=== PATIENT | female | born 1955 | race Caucasian/White ===

== ENCOUNTER → 2018-05-06 11:04 | Outpatient (CLI) | payer OTHER, SELFPAY ==
--- NOTE | 2018-05-06 11:05 | DI.MG.S_ITS ---
BILATERAL DIGITAL SCREENING MAMMOGRAM 3D/2D WITH CAD: 05/06/2018 CLINICAL: Routine screening. Comparison is made to exams dated: 12/23/2015 mammogram, 05/03/2014 mammogram, and 03/03/2013 mammogram - [facility]. There are scattered fibroglandular elements in both breasts. Current study was also evaluated with a Computer Aided Detection (CAD) system. No significant masses, calcifications, or other findings are seen in either breast. There has been no significant interval change. IMPRESSION: NEGATIVE There is no mammographic evidence of malignancy. A 1 year screening mammogram is recommended. This exam was interpreted at Station ID: [id number]. NOTE: For mammograms, a report in lay terms will be sent to the patient. Approximately 15% of breast malignancies will not be visualized mammographically. In the management of a palpable breast mass, a negative mammogram must not discourage biopsy of a clinically suspicious lesion. Electronically Signed By: Gregg ortiz/penmelo:05/08/2018 22:15:22 letter sent: Normal Exam ACR BI-RADS Category 1: Negative 3341F
== END ==
PROVIDERS: Family Provider Physician Assistant; PCP Physician Assistant; Visit Provider Physician Assistant
DX: Z12.31 Encounter for screening mammogram for malignant neoplasm of breast (principal)
CPT/HCPCS: 77063; 77067

== ENCOUNTER → 2018-08-16 15:38 | Outpatient (CLI) | payer OTHER, SELFPAY ==
--- NOTE | 2018-08-16 15:39 | DI.RAD.S_ITS ---
PROCEDURE: XR ELBOW LT MIN 3V INDICATIONS: Left elbow pain;hx of injury 10 years ago TECHNIQUE: 3 views of the elbow were acquired. COMPARISON: None. FINDINGS: Bones: No fractures or dislocations. No suspicious bony lesions. Soft tissues: No elbow joint effusion. No suspicious soft tissue calcifications. IMPRESSION: Unremarkable examination. If the patient's pain or other symptoms persist, consider further evaluation with MRI Dictated by: Cristopher Marin M.D. on 08/16/2018 at 17:06 Approved by: Cristopher Marin M.D. on 08/16/2018 at 17:08
== END ==
PROVIDERS: PCP Physician Assistant; Visit Provider Physician Assistant
DX: M25.522 Pain in left elbow (principal)
CPT/HCPCS: 73080

== ENCOUNTER → 2019-02-13 09:14 | Outpatient (CLI) | payer OTHER, SELFPAY ==
[2019-02-13 10:03] LABS: Add Manual Diff / Slide Review NO; Basophils Absolute Auto 0 /uL (0-100); Basophils Percent Auto 0.7 % (0-2); Eosinophils Absolute Auto 100 /uL (0-450); Eosinophils Percent Auto 1.7 % (2-4); Hematocrit 42.3 % (36-46); Hemoglobin 14.6 g/dL (12.0-16.0); Lymphocytes Absolute Auto 1000 /uL (1100-4500); Lymphocytes Percent Auto 20.8 % (25-40); Mean Corpuscular HGB Conc 34.5 % (30-36); Mean Corpuscular Volume 92.9 fL (80-100); Monocytes Absolute Auto 400 /uL (0-900); Monocytes Percent Auto 7.6 % (3-14); Neutrophils Absolute Auto 3400 /uL (1500-7000); Neutrophils Percent Auto 69.2 % (50-75); Platelet Count 272 X10^3/uL (150-400); Red Blood Cell Count 4.55 X10^6/uL (4.0-5.2); Red Cell Distribution Width 12.8 % (11.6-14.8)
[2019-02-13 10:20] LABS: Alanine Aminotransferase 14 IU/L (9-52); Albumin 4.3 g/dL (3.5-5.0); Albumin Globulin Ratio 1.5 (1.0-2.8); Alkaline Phosphatase 101 U/L (38-126); Aspartate Aminotransferase 21 IU/L (14-36); BUN Creatinine Ratio 21.4 (6-22); Bilirubin Total 0.6 mg/dL (0.2-1.3); Blood Urea Nitrogen 15 mg/dL (7-17); Calcium 9.4 mg/dL (8.4-10.2); Carbon Dioxide 28 mmol/L (22-32); Chloride 105 mmol/L (98-107); Estimated Glomerular Filt Rate > 60.0 mL/min (>60); Globulin 2.8 g/dL (1.7-4.1); Glucose 87 mg/dL (80-110); HEMOLYSIS < 15 (0-50); Potassium 4.2 mmol/L (3.4-5.1); Sodium 140 mmol/L (137-145); Total Protein 7.1 g/dL (6.3-8.2)
[2019-02-13 10:49] LABS: Thyroid Stimulating Hormone 0.89 uIU/mL (0.47-4.68)
== END ==
PROVIDERS: PCP Physician Assistant; Visit Provider Physician Assistant
DX: G47.00 Insomnia, unspecified (principal); I10 Essential (primary) hypertension; R53.83 Other fatigue; Z87.891 Personal history of nicotine dependence
CPT/HCPCS: 36415; 80053; 84443; 85025

== ENCOUNTER → 2019-05-03 13:00 | Outpatient (CLI) | payer OTHER, SELFPAY ==
[2019-05-03 14:08] LABS: Free T3, Triiodothyronine Free 3.39 pg/mL (2.77-5.27); Free T4, Direct Thyroxine 0.73 ng/dL (0.78-2.19)
[2019-05-03 14:22] LABS: Thyroid Stimulating Hormone 1.23 uIU/mL (0.47-4.68)
[2019-05-06 17:21] LABS: Thyroid Peroxidase Antibodies 2 IU/mL (< 9)
== END ==
PROVIDERS: PCP Physician Assistant; Visit Provider Physician Assistant
DX: G47.00 Insomnia, unspecified (principal); R53.83 Other fatigue; Z86.39 Personal history of other endocrine, nutritional and metabolic disease
CPT/HCPCS: 36415; 84439; 84443; 84481; 86376

== ENCOUNTER → 2019-05-04 08:29 | Outpatient (CLI) | payer OTHER, SELFPAY ==
--- NOTE | 2019-05-04 08:30 | DI.US.S_ITS ---
PROCEDURE: US THYROID INDICATIONS: FATIGUE; INSOMNIA;HX OF THYROIDITIS TECHNIQUE: Real-time scanning was performed of the thyroid gland, with image documentation. COMPARISON: [facility], [place], THYROID, 08/17/2017, 9:11. FINDINGS: Right: Thyroid lobe measures 5.0 x 1.9 x 1.5 cm, and is homogeneous in echotexture. Left: Thyroid lobe measures 4.5 x 1.1 x 1.4 cm, and is homogenous in echotexture. Isthmus: 4.0 mm thick. Nodule number: 1 Location: Right inferior Size: Unchanged at 1.0 x 0.8 x 0.9 cm. Composition: Predominantly solid Echogenicity: Hypoechoic Shape: wider than tall. Margins: Smooth Echogenic foci: Internal punctate echogenic foci Total points: 7 ACR TI-RADS category: Highly suspicious Nodule number: 2 Location: Left inferior Size: Unchanged 0.5 x 0.3 x 0.4 cm. Composition: Cystic Echogenicity: Anechoic Shape: wider than tall. Margins: Smooth Echogenic foci: Comet tail artifact Total points: 0 ACR TI-RADS category: 9 IMPRESSION: Stable appearance of right thyroid nodule and left colloid cyst. Recommend continued followup ultrasound as detailed below. ACR TI-RADS definitions and recommendations: TI-RADS 1 (benign): 0 points. FNA not needed. TI-RADS 2 (not suspicious): 2 points. FNA not needed. TI-RADS 3 (mildly suspicious): 3 points. * FNA if 2.5 cm or larger, follow up if 1.5 cm or larger (at 1, 3, and 5 years). TI-RADS 4 (moderately suspicious): 4-6 points. * FNA if 1.5 cm or larger, follow up if 1 cm or larger (at 1, 2, 3, and 5 years). TI-RADS 5 (highly suspicious): 7 points or more. * FNA if 1 cm or larger, follow up if 0.5 cm or larger (every year for 5 years). Dictated by: on 05/04/2019 at 17:03 Approved by: Cristopher Marin M.D. on 05/04/2019 at 17:07
== END ==
PROVIDERS: PCP Physician Assistant; Visit Provider Physician Assistant
DX: R53.83 Other fatigue (principal); G47.00 Insomnia, unspecified; E04.2 Nontoxic multinodular goiter; Z86.39 Personal history of other endocrine, nutritional and metabolic disease
CPT/HCPCS: 76536

== ENCOUNTER → 2019-05-22 08:00 | Outpatient (CLI) | payer OTHER, SELFPAY ==
--- NOTE | 2019-05-22 08:01 | DI.MRI.S_ITS ---
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 Thin-slice sagittal and coronal T1 spin echo, coronal T2 fast spin echo through the pituitary. After the administration contrast, optional dynamic coronal T1 spin echo, thin-slice coronal and sagittal T1 spin echo images through the pituitary fossa; axial T1 spin echo with fat saturation through the brain. COMPARISON: None. FINDINGS: Image quality: Excellent. Pituitary Gland: Pituitary gland is normal size and contour. Pituitary gland demonstrates normal no areas of delayed postcontrast enhanced. Pituitary infundibulum is slightly deviated to the left. Pituitary infundibulum has normal thickness, contour and enhancement. No suprasellar mass is identified. The optic chiasm is normal. There are sinus demonstrates normal CSF Spaces: Ventricles are normal in size and shape. Basal cisterns are patent. No extra-axial fluid collections. Brain: No intracranial bleeds or mass effects. No abnormal intracranial enhancement. Paez-white matter interface is intact. Diffusion weighted images demonstrate no acute ischemic insults. Brainstem is normal. Normal intravascular flow voids are present. Skull and face: Calvarial marrow is normal in signal. Orbits appear normal. Sinuses: Sinuses and mastoids are clear. IMPRESSION: 1. Pituitary gland demonstrates normal size contour and enhancement. 2. No abnormal intracranial mass or mass effect. 3. No suspicious postcontrast enhancement. Dictated by: Edwina Pfeiffer MD, PhD on 05/22/2019 at 12:26 Approved by: Edwina Pfeiffer MD, PhD on 05/22/2019 at 12:37
== END ==
PROVIDERS: PCP Physician Assistant; Visit Provider Physician Assistant
DX: E03.8 Other specified hypothyroidism (principal)
CPT/HCPCS: 70553

== ENCOUNTER → 2019-08-07 11:03 | Outpatient (CLI) | payer OTHER, SELFPAY ==
[2019-08-07 13:04] LABS: Free T4, Direct Thyroxine 1.02 ng/dL (0.78-2.19)
[2019-08-07 13:18] LABS: Thyroid Stimulating Hormone 0.53 uIU/mL (0.47-4.68)
== END ==
PROVIDERS: PCP Physician Assistant; Visit Provider Physician Assistant
DX: E03.8 Other specified hypothyroidism (principal)
CPT/HCPCS: 36415; 84439; 84443

== ENCOUNTER → 2020-04-12 07:56 | Outpatient (CLI) | payer OTHER, SELFPAY ==
[2020-04-12 09:32] LABS: Add Manual Diff / Slide Review NO; Basophils Absolute Auto 100 /uL (0-100); Basophils Percent Auto 1.4 % (0-2); Eosinophils Absolute Auto 100 /uL (0-450); Eosinophils Percent Auto 3.6 % (2-4); Hematocrit 41.8 % (36-46); Hemoglobin 14.6 g/dL (12.0-16.0); Lymphocytes Absolute Auto 1200 /uL (1100-4500); Lymphocytes Percent Auto 28.4 % (25-40); Mean Corpuscular HGB Conc 34.9 % (30-36); Mean Corpuscular Hemoglobin 31.5 PG (26-34); Mean Corpuscular Volume 90.4 fL (80-100); Monocytes Absolute Auto 300 /uL (0-900); Monocytes Percent Auto 7.2 % (3-14); Neutrophils Absolute Auto 2400 /uL (1500-7000); Neutrophils Percent Auto 59.4 % (50-75); Platelet Count 272 X10^3/uL (150-400); Red Blood Cell Count 4.62 X10^6/uL (4.0-5.2); Red Cell Distribution Width 13.1 % (11.6-14.8); White Blood Cell Count 4.1 X10^3/uL (4.5-11.0)
[2020-04-12 10:17] LABS: Alanine Aminotransferase 19 IU/L (<35); Albumin 3.9 g/dL (3.5-5.0); Albumin Globulin Ratio 1.6 (1.0-2.8); Alkaline Phosphatase 124 U/L (38-126); Aspartate Aminotransferase 21 IU/L (14-36); BUN Creatinine Ratio 25.6 (6-22); Bilirubin Total 0.7 mg/dL (0.2-1.3); Blood Urea Nitrogen 20 mg/dL (7-17); Calcium 9.3 mg/dL (8.4-10.2); Carbon Dioxide 26 mmol/L (22-32); Chloride 104 mmol/L (98-107); Estimated Glomerular Filt Rate > 60.0 mL/min (>60); Globulin 2.5 g/dL (1.7-4.1); Glucose 94 mg/dL (80-110); HEMOLYSIS < 15 (0-50); Sodium 137 mmol/L (137-145); Total Protein 6.4 g/dL (6.3-8.2)
[2020-04-12 10:28] LABS: Free T4, Direct Thyroxine 1.27 ng/dL (0.78-2.19)
[2020-04-12 10:30] LABS: Potassium 4.4 mmol/L (3.4-5.1)
[2020-04-12 10:41] LABS: Thyroid Stimulating Hormone 0.776 uIU/mL (0.47-4.68)
== END ==
PROVIDERS: PCP Family Medicine; Referring Provider Family Medicine; Visit Provider Family Medicine
DX: E03.8 Other specified hypothyroidism (principal); I10 Essential (primary) hypertension; Z82.49 Family history of ischemic heart disease and other diseases of the circulatory system
CPT/HCPCS: 36415; 80053; 84439; 84443; 85025

== ENCOUNTER → 2020-07-12 08:44 | Outpatient (CLI) | payer OTHER, SELFPAY ==
--- NOTE | 2020-07-12 | DI.RAD.S_ITS ---
PROCEDURE: XR HIP W PEL IF DONE RT 2V INDICATIONS: CHRONIC RT HIP PAIN TECHNIQUE: AP pelvis with lateral view(s) of the right hip(s). COMPARISON: [facility], [facility], XR L-SPINE 4-6V, 02/14/2019, 13:43. FINDINGS: Bones: No fractures or dislocations. Pelvic ring appears intact. No suspicious bony lesions. Mild joint narrowing with periarticular osteophyte formation. Degenerative disc and facet disease involves the inferior lumbar spine. Soft tissues: The visualized bowel gas pattern is normal. No suspicious soft tissue calcifications. Right keesha pelvic surgical clips. IMPRESSION: Mild symmetric hip joint degeneration. Dictated by: David SPENCE Interpreted: Nick Mendez MD on 07/12/2020 at 9:01 Approved by: Nick Mendez M.D. on 07/12/2020 at 9:04
== END ==
PROVIDERS: PCP Family Medicine; Referring Provider Family Medicine; Visit Provider Chiropractor
DX: M25.551 Pain in right hip (principal); M16.11 Unilateral primary osteoarthritis, right hip; G89.29 Other chronic pain
CPT/HCPCS: 73502

== ENCOUNTER → 2020-08-16 11:05 | Outpatient (CLI) | payer OTHER, SELFPAY ==
--- NOTE | 2020-08-16 11:06 | DI.US.S_ITS ---
PROCEDURE: US THYROID INDICATIONS: Nodules on thyroid TECHNIQUE: Real-time scanning was performed of the thyroid gland, with image documentation. COMPARISON: [facility], [place], US THYROID, 05/04/2019, 9:08. [facility], [place], THYROID, 08/17/2017, 9:11. FINDINGS: Right: Thyroid lobe measures 4.6 x 1.2 x 1.8 cm, and is homogeneous in echotexture. Left: Thyroid lobe measures 4.6 x 0.8 x 1.6 cm, and is homogenous in echotexture. Isthmus: 3 mm thick. Nodule number: 1 Location: Right inferior Size: 1.0 x 0.6 x 0.8 cm (previously 1.0 x 0.8 x 0 point cm). Composition: Solid Echogenicity: Hyperechoic Shape: wider than tall Margins: Smooth Echogenic foci: 5 Total points: 6 ACR TI-RADS category: 4 Nodule number: 2 Location: Left inferior Size: 0.4 x 0.2 x 0.3 cm (previously 0.5 x 0.3 x 0.3). Composition: Cystic Echogenicity: Hypoechoic Shape: wider than tall. Margins: Smooth Echogenic foci: Punctate Total points: 5 ACR TI-RADS category: 4 IMPRESSION: Stable moderately suspicious thyroid nodules. ACR TI-RADS definitions and recommendations: TI-RADS 1 (benign): 0 points. FNA not needed. TI-RADS 2 (not suspicious): 2 points. FNA not needed. TI-RADS 3 (mildly suspicious): 3 points. * FNA if 2.5 cm or larger, follow up if 1.5 cm or larger (at 1, 3, and 5 years). TI-RADS 4 (moderately suspicious): 4-6 points. * FNA if 1.5 cm or larger, follow up if 1 cm or larger (at 1, 2, 3, and 5 years). TI-RADS 5 (highly suspicious): 7 points or more. * FNA if 1 cm or larger, follow up if 0.5 cm or larger (every year for 5 years). Dictated by: Rosi Jones M.D. on 08/16/2020 at 17:28 Approved by: Rosi Jones M.D. on 08/16/2020 at 17:34
== END ==
PROVIDERS: PCP Family Medicine; Referring Provider Family Medicine; Visit Provider Family Medicine
DX: E04.2 Nontoxic multinodular goiter (principal); E03.8 Other specified hypothyroidism
CPT/HCPCS: 76536

== ENCOUNTER → 2020-09-27 09:33 | Outpatient (CLI) | payer OTHER, MEDICARE, SELFPAY ==
[2020-09-27 10:50] LABS: Alanine Aminotransferase 45 IU/L (<35); Albumin 4.2 g/dL (3.5-5.0); Albumin Globulin Ratio 1.4 (1.0-2.8); Alkaline Phosphatase 121 U/L (38-126); Aspartate Aminotransferase 36 IU/L (14-36); BUN Creatinine Ratio 31.3 (6-22); Bilirubin Total 0.4 mg/dL (0.2-1.3); Blood Urea Nitrogen 20 mg/dL (7-17); Calcium 9.3 mg/dL (8.4-10.2); Carbon Dioxide 30 mmol/L (22-32); Chloride 102 mmol/L (98-107); Cholesterol 217 mg/dL (140-199); Estimated Glomerular Filt Rate > 60.0 mL/min (>60); Globulin 2.9 g/dL (1.7-4.1); Glucose 96 mg/dL (80-110); HDL Cholesterol 93 mg/dL (40-60); HEMOLYSIS < 15 (0-50); LDL Cholesterol Calculated 99 mg/dL (<100); Sodium 137 mmol/L (137-145); Total Protein 7.1 g/dL (6.3-8.2); Triglycerides 126 mg/dL (35-150)
[2020-10-09 13:08] LABS: SARS CoV19 IgG NEGATIVE
== END ==
PROVIDERS: PCP Family Medicine; Referring Provider Family Medicine; Visit Provider Family Medicine
DX: E03.8 Other specified hypothyroidism (principal); J06.9 Acute upper respiratory infection, unspecified
CPT/HCPCS: 36415; 80053; 80061; 86769

== ENCOUNTER → 2021-02-20 10:10 | Outpatient (CLI) | payer OTHER, SELFPAY ==
[2021-02-21 11:56] LABS: SARS CoV19 IgG Negative (Negative)
== END ==
PROVIDERS: PCP Family Medicine; Referring Provider Family Medicine; Visit Provider Family Medicine
DX: Z20.822 Contact with and (suspected) exposure to COVID-19 (principal)
CPT/HCPCS: 36415; 86769

== ENCOUNTER → 2021-05-22 10:44 | Outpatient (CLI) | payer OTHER, SELFPAY | PROVIDERS: PCP Family Medicine; Referring Provider Registered Nurse; Visit Provider Registered Nurse | DX: R10.9 Unspecified abdominal pain (principal); Z53.8 Procedure and treatment not carried out for other reasons ==

== ENCOUNTER → 2021-06-10 12:04 | Outpatient (CLI) | payer OTHER, SELFPAY ==
[2021-06-10 12:35] LABS: Add Manual Diff / Slide Review NO; Basophils Absolute Auto 100 /uL (0-100); Basophils Percent Auto 0.9 % (0-2); Eosinophils Absolute Auto 0 /uL (0-450); Eosinophils Percent Auto 0.7 % (2-4); Hemoglobin 15.1 g/dL (12.0-16.0); Lymphocytes Absolute Auto 1000 /uL (1100-4500); Lymphocytes Percent Auto 14.3 % (25-40); Mean Corpuscular HGB Conc 34.4 % (30-36); Mean Corpuscular Hemoglobin 32.1 PG (26-34); Mean Corpuscular Volume 93.3 fL (80-100); Monocytes Absolute Auto 400 /uL (0-900); Monocytes Percent Auto 5.9 % (3-14); Neutrophils Absolute Auto 5300 /uL (1500-7000); Neutrophils Percent Auto 78.2 % (50-75); Platelet Count 278 X10^3/uL (150-400); Red Blood Cell Count 4.72 X10^6/uL (4.0-5.2); Red Cell Distribution Width 12.8 % (11.6-14.8); White Blood Cell Count 6.7 X10^3/uL (4.5-11.0)
[2021-06-10 12:51] LABS: Alanine Aminotransferase 18 IU/L (<35); Albumin 4.2 g/dL (3.5-5.0); Albumin Globulin Ratio 1.5 (1.0-2.8); Alkaline Phosphatase 111 U/L (38-126); Aspartate Aminotransferase 22 IU/L (14-36); BUN Creatinine Ratio 21.3 (6-22); Bilirubin Total 0.3 mg/dL (0.2-1.3); Blood Urea Nitrogen 13 mg/dL (7-17); Calcium 9.3 mg/dL (8.4-10.2); Carbon Dioxide 28 mmol/L (22-32); Chloride 105 mmol/L (98-107); Estimated Glomerular Filt Rate > 60.0 mL/min (>60); Globulin 2.8 g/dL (1.7-4.1); Glucose 112 mg/dL (80-110); HEMOLYSIS < 15 (0-50); Potassium 4.4 mmol/L (3.4-5.1); Sodium 139 mmol/L (137-145)
[2021-06-10 13:10] LABS: Free T4, Direct Thyroxine 1.14 ng/dL (0.78-2.19)
== END ==
PROVIDERS: PCP Family Medicine; Referring Provider Registered Nurse; Visit Provider Registered Nurse
DX: E03.8 Other specified hypothyroidism (principal); N95.1 Menopausal and female climacteric states; R89.9 Unspecified abnormal finding in specimens from other organs, systems and tissues
CPT/HCPCS: 36415; 80053; 84439; 84443; 85025

== ENCOUNTER → 2021-07-09 14:11 | Outpatient (CLI) | payer OTHER, SELFPAY ==
--- NOTE | 2021-07-09 14:12 | DI.MG.S_ITS ---
BILATERAL DIGITAL SCREENING MAMMOGRAM 3D/2D WITH CAD: 07/09/2021 CLINICAL: Routine screening. Comparison is made to exams dated: 12/23/2015 mammogram, 05/06/2018 mammogram, and 05/03/2014 mammogram - [facility]. There are scattered fibroglandular elements in both breasts. Current study was also evaluated with a Computer Aided Detection (CAD) system. There are benign calcifications in the left breast. No significant masses, calcifications, or other findings are seen in either breast. There has been no significant interval change. IMPRESSION: BENIGN There is no mammographic evidence of malignancy. A 1 year screening mammogram is recommended. This exam was interpreted at Station ID: [id number]. NOTE: For mammograms, a report in lay terms will be sent to the patient. Approximately 15% of breast malignancies will not be visualized mammographically. In the management of a palpable breast mass, a negative mammogram must not discourage biopsy of a clinically suspicious lesion. Electronically Signed By: Jose Guadalupe cole/sherrill:07/09/2021 16:35:42 letter sent: Normal Exam ACR BI-RADS Category 2: Benign Finding(s) 3342F
== END ==
PROVIDERS: PCP Family Medicine; Referring Provider Family Medicine; Visit Provider Family Medicine
DX: Z12.31 Encounter for screening mammogram for malignant neoplasm of breast (principal); E07.9 Disorder of thyroid, unspecified; Z78.0 Asymptomatic menopausal state; Z90.722 Acquired absence of ovaries, bilateral; Z87.891 Personal history of nicotine dependence
CPT/HCPCS: 77063; 77067; 77080

== ENCOUNTER → 2021-07-16 10:13 | Outpatient (CLI) | payer OTHER, SELFPAY ==
--- NOTE | 2021-07-16 10:16 | DI.US.S_ITS ---
PROCEDURE: US PELVIC COMPLETE INDICATIONS: PAIN TECHNIQUE: Real-time scanning was performed of the pelvic organs, with image documentation. Additional endovaginal scanning was necessary due to incomplete visualization of the adnexal and endometrial structures by transabdominal scanning. COMPARISON: [facility], US PELVIC/TRANSVAGINAL, 12/11/2004, 9:06. FINDINGS: Uterus: Prior hysterectomy. Ovaries: Ovaries are surgically absent. No adnexal masses are seen. Other: No pathologic free abdominal or pelvic fluid. IMPRESSION: Limited exam demonstrating no source for pelvic pain. If indicated, CT could be performed for further assessment. Dictated by: David Joshi [facility] Interpreted: Neal Mims MD on 07/16/2021 at 11:01 Approved by: Neal Mims M.D. on 07/16/2021 at 11:10
== END ==
PROVIDERS: PCP Family Medicine; Referring Provider Family Medicine; Visit Provider Family Medicine
DX: M54.50 Low back pain, unspecified (principal); Z90.710 Acquired absence of both cervix and uterus; Z90.722 Acquired absence of ovaries, bilateral; Z90.79 Acquired absence of other genital organ(s); R10.2 Pelvic and perineal pain
CPT/HCPCS: 76830; 76856

== ENCOUNTER 2021-08-06 11:02 | Emergency (ER) | payer OTHER, SELFPAY ==
[2021-08-06 11:18] VITALS: BP 131/70; PULSE 85; RESP 18; TEMP 36.1; O2SAT 96; BMI 21.4
[2021-08-06 12:12] LABS: Add Manual Diff / Slide Review NO; Basophils Absolute Auto 0 /uL (0-100); Basophils Percent Auto 0.5 % (0-2); Eosinophils Absolute Auto 100 /uL (0-450); Eosinophils Percent Auto 0.8 % (2-4); Hematocrit 42.9 % (36-46); Hemoglobin 14.8 g/dL (12.0-16.0); Lymphocytes Absolute Auto 1200 /uL (1100-4500); Lymphocytes Percent Auto 13.4 % (25-40); Mean Corpuscular HGB Conc 34.5 % (30-36); Mean Corpuscular Hemoglobin 31.5 PG (26-34); Mean Corpuscular Volume 91.3 fL (80-100); Monocytes Absolute Auto 700 /uL (0-900); Monocytes Percent Auto 7.6 % (3-14); Neutrophils Absolute Auto 6800 /uL (1500-7000); Neutrophils Percent Auto 77.7 % (50-75); Platelet Count 313 X10^3/uL (150-400); Red Cell Distribution Width 12.6 % (11.6-14.8); White Blood Cell Count 8.8 X10^3/uL (4.5-11.0)
[2021-08-06] MEDS: PANTOPRAZOLE 40 MG VIAL IV (12:14)
[2021-08-06 12:27] LABS: Alanine Aminotransferase 19 IU/L (<35); Albumin 4.3 g/dL (3.5-5.0); Albumin Globulin Ratio 1.5 (1.0-2.8); Alkaline Phosphatase 106 U/L (38-126); Aspartate Aminotransferase 28 IU/L (14-36); Bilirubin Total 0.6 mg/dL (0.2-1.3); Blood Urea Nitrogen 20 mg/dL (7-17); Calcium 9.7 mg/dL (8.4-10.2); Carbon Dioxide 23 mmol/L (22-32); Chloride 106 mmol/L (98-107); Estimated Glomerular Filt Rate > 60.0 mL/min (>60); Globulin 2.8 g/dL (1.7-4.1); Glucose 98 mg/dL (80-110); HEMOLYSIS < 15 (0-50); Potassium 3.8 mmol/L (3.4-5.1); Sodium 137 mmol/L (137-145); Total Protein 7.1 g/dL (6.3-8.2)
[2021-08-06 12:42] LABS: Appearance Urine UA CLOUDY; Bilirubin Urine UA NEGATIVE (NEGATIVE); Color Urine UA YELLOW; Glucose Urine UA NEGATIVE (Negative); Ketones Urine UA TRACE (NEGATIVE); Leukocyte Esterase Urine UA TRACE (NEGATIVE); Nitrite Urine UA NEGATIVE (Negative); Occult Blood Urine UA 3+ (Negative); Protein Urine UA TRACE (Negative); Urobilinogen Urine UA 0.2 E.U./dL (0.2)
[2021-08-06 13:10] LABS: Amorphous Sediment Urine 1+; Bacteria Urine Occasional (0-1); Mucus Urine 1+ (Negative); RBC Urine 1-5/HPF (0-5/HPF); Squamous Epithelial Cell Urine 5-10 /HPF (0-5/HPF); WBC Urine 10-30/HPF (0-5/HPF); White Blood Cell Casts Urine 1-5/LPF
[2021-08-06 13:11] LABS: Culture Indicated Urine Specimen Cultured
--- NOTE | 2021-08-06 14:10 | DI.CT.S_ITS ---
PROCEDURE: CT ABDOMEN PELVIS W CON INDICATIONS: gi bleed, n/v, pain, IV contrast only TECHNIQUE: After the administration of intravenous contrast, axial sections acquired from the lung bases to the pubic symphysis. Coronal and sagittal reformats were performed. For radiation dose reduction, the following was used: automated exposure control, adjustment of mA and/or kV according to patient size. COMPARISON: None. FINDINGS: Image quality: Excellent. Lung bases: Unremarkable. Heart: No significant findings. ABDOMEN: Liver: Unremarkable. Gallbladder: Unremarkable. Biliary ducts: Unremarkable. Pancreas: Unremarkable. Spleen: Multiple calcifications within the spleen. Adrenal Glands: Unremarkable. Kidneys and Ureters: Unremarkable. Stomach and Bowel: Moderate thickening of the gastric antrum is present. Small bowel is grossly unremarkable. Appendix is normal. Colon is nondistended. There is moderate thickening of the proximal and mid sigmoid colon. Mild thickening of the rectum. Mild pericolonic fat stranding surrounds the sigmoid colon. Peritoneum: No pneumoperitoneum. Small amount of free fluid within the pelvis. Ventral Wall: No hernias. Abdominal Nodes: No retroperitoneal or mesenteric adenopathy by size criteria. Vessels: Aorta and inferior vena cava are normal in size. PELVIS: Pelvic Organs: Unremarkable. Bladder: Asymmetric thickening of the superior and right aspect of the urinary bladder with relative sparing of the left aspect of the urinary bladder. Pelvic Nodes: No enlarged lymph nodes. Miscellaneous: No hernias are seen. Bones: Unremarkable. IMPRESSION: 1. Thickening of the distal colon as described above. Differential considerations include ischemia, infection, and inflammation. Underlying neoplasm may also be present. 2. Normal appendix. 3. Thickening of the gastric antrum, possibly indicating peptic ulcer disease or neoplasm. Further assessment with endoscopy is recommended. 4. Remote granulomatous disease. Dictated by: Manohar Howell M.D. on 08/06/2021 at 14:33 Approved by: Manohar Howell M.D. on 08/06/2021 at 14:39
[2021-08-06 14:13] VITALS: BP 139/71; PULSE 68; RESP 16; O2SAT 98
--- NOTE | 2021-08-06 14:23 | PC.NURSE ---
Pt c/o sudden onset of nausea/vomiting/diarrhea w/ clots of blood yesterday. Those resolved. Today arrives w/ generalized abd pain. Denies black/bloody stool. States feels improved since protonix.
[2021-08-06 14:30] LABS: Creatine Kinase 431 U/L (30-135)
[2021-08-06 14:42] LABS: Troponin I < 0.012 ng/mL (0.01-0.034)
[2021-08-06 14:46] LABS: CKMB % Relative Index 0.9 % (1.5-5.0); Creatine Kinase MB 3.75 ng/mL (<2.37)
[2021-08-06 14:53] LABS: COVID19 -Nasal RAPID Negative (Negative)
--- NOTE | 2021-08-06 15:20 | ED.GIBLEED ---
HPI - GI Bleed General Chief complaint: GI Bleed Stated complaint: Rectal bleeding since yest. Time Seen by Provider: 08/06/21 15:20 Source: patient Mode of arrival: Ambulatory Limitations: no limitations History of Present Illness HPI Narrative: This is a 65-year-old comes with complaint of abdominal pain that started yesterday. She describes it as abdominal cramping. Yesterday she got sweaty she felt very nauseated had several episodes of vomiting felt lightheaded, had frequent episodes of diarrhea and bright red blood in her stool. She has continued to have some episodes of bright red blood in her stool and occasional diarrhea but not as frequently. She has not any more nausea or vomiting today. She did not have any syncope. She denies any chest pain or shortness of breath. Patient does not take any blood thinners she does take hypothyroidism, hypertension and VERO. She has had a colonoscopy remotely and is supposed to have 1 scheduled this month but has not been contacted. She has had a hysterectomy. Denies allergies to medications other than morphine and tramadol. Related Data Home Medications Medication Instructions Recorded Confirmed [VITAMIN D3] 2,000 iu PO QDAY #0 06/07/17 07/31/21 Allergy shots See Rx Instructions .ROUTE .COMPLEX 02/13/19 07/31/21 fexofenadine 180 mg tablet 180 mg PO DAILY PRN 02/13/19 07/31/21 (Patricia Allergy) ipratropium bromide 42 mcg (0.06 2 spray NASAL TID 10/09/19 07/31/21 %) nasal spray diclofenac sodium 1 % topical gel 2 g TOP QID PRN gram 03/27/21 07/31/21 Previous Rx's Medication Instructions Recorded cyclobenzaprine 10 mg tablet 10 mg PO TID PRN #60 tab 09/27/20 hydrocodone 5 mg-acetaminophen 325 See Rx Instructions PO Q8H PRN #45 09/27/20 mg tablet tab metronidazole 1 % topical gel 1 applic TOPICAL BEDTIME #60 g 12/19/20 (Metrogel) lisinopril 10 mg tablet 10 mg PO DAILY #30 tab 05/20/21 levothyroxine 88 mcg tablet 88 mcg PO DAILY #90 tab 06/18/21 triamcinolone acetonide 0.1 % 1 applic TOPICAL BID PRN #15 g 06/27/21 topical cream [CMP BI-EST] See Rx Instructions TOP BID #60 08/06/21 applictn prednisone 20 mg tablet 40 mg PO DAILY #10 tab 08/06/21 Allergies Allergy/AdvReac Type Severity Reaction Status Date / Time morphine [MORPHINE] Allergy Severe ITCHING Verified 07/31/21 09:58 tramadol AdvReac Mild Itching Verified 07/31/21 09:58 Review of Systems Review of Systems ROS Unobtainable: All systems reviewed & are unremarkable except as noted in HPI and below Patient History Medical History Abdominal pain Abnormal laboratory test result Low back pain Multiple thyroid nodules Plantar wart Post-menopausal Screening for malignant neoplasm of colon URI (upper respiratory infection) Surgical History S/P total abdominal hysterectomy and bilateral salpingo-oophorectomy Family History Father Heart disease Social History Smoking Status: Former smoker Tobacco: How many years used: 17 second hand exposure: No alcohol intake: current substance use type: does not use Smoking Status: Former smoker Exam Narrative Exam Narrative: GENERAL: Alert and oriented x three, female in mild distress HEENT: Head normocephalic, atraumatic, EOMI, pupils reactive, face symmetric, moist mucous membranes NECK: Supple, full range of motion CARDIOVASCULAR: Regular rate and rhythm without murmurs, rubs or gallops. RESPIRATORY: Breath sounds equal bilaterally, no wheezes rales or rhonchi. ABDOMEN: Soft, nontender. Nontender. Normoactive bowel sounds all 4 quadrants. No guarding or rebound, rigidity, no mass : No CVA tenderness EXTREMITIES: Normal range of motion, no clubbing or edema. Neurovascularly intact NEUROLOGICAL: Cranial nerves II through XII grossly intact. Moving all extremities SKIN: Warm, dry, no petechiae, no rashes or lesions. Initial Vital Signs Initial Vital Signs: Vital Signs Temperature 97.0 F L 08/06/21 11:18 Pulse Rate 85 08/06/21 11:18 Respiratory Rate 18 08/06/21 11:18 Blood Pressure 131/70 08/06/21 11:18 Pulse Oximetry 96 08/06/21 11:18 Course Orders Ordered: ED Orders 08/06/21 11:54 Complete Blood Count AUTO DIFF Stat Comprehensive Metabolic Panel Stat Troponin & CK Cardiac Panel Stat 08/06/21 12:00 Urinalysis and Microscopic Stat Urine Culture Stat 08/06/21 14:10 CT abdomen pelvis w con Stat 08/06/21 14:16 COVID19 -Nasal swab/Pre-Proc Stat Discontinued Medications Pantoprazole Sodium (Pantoprazole 40 Mg Vial) 40 mg IV NOW ONE Stop: 08/06/21 12:07 Last Admin: 08/06/21 12:14 Dose: 40 mg Documented by: JOZEF Vital Signs Vital signs: Vital Signs - 8 hr 08/06/21 11:18 08/06/21 14:13 Temperature 97.0 F L Pulse Rate 85 68 Respiratory Rate 18 16 Blood Pressure 131/70 139/71 Pulse Oximetry 96 98 MDM - GI Bleed Lab Data Result diagrams: 08/06/21 11:54 08/06/21 11:54 Labs: Lab Results 08/06/21 08/06/21 08/06/21 Range/Units 11:54 11:54 11:54 WBC 8.8 (4.5-11.0) X10^3/uL RBC 4.70 (4.0-5.2) X10^6/uL Hgb 14.8 (12.0-16.0) g/dL Hct 42.9 (36-46) % MCV 91.3 (80-100) fL MCH 31.5 (26-34) PG MCHC 34.5 (30-36) % RDW 12.6 (11.6-14.8) % Plt Count 313 (150-400) X10^3/uL Neut % (Auto) 77.7 H (50-75) % Lymph % (Auto) 13.4 L (25-40) % Rankin % (Auto) 7.6 (3-14) % Eos % (Auto) 0.8 L (2-4) % Baso % (Auto) 0.5 (0-2) % Neut # (Auto) 6800 (8325-1889) /uL Lymph # (Auto) 1200 (5258-8351) /uL Rankin # (Auto) 700 (0-900) /uL Eos # (Auto) 100 (0-450) /uL Baso # (Auto) 0 (0-100) /uL Sodium 137 (137-145) mmol/L Potassium 3.8 (3.4-5.1) mmol/L Chloride 106 (98-107) mmol/L Carbon Dioxide 23 (22-32) mmol/L BUN 20 H (7-17) mg/dL Creatinine 0.77 (0.52-1.04) mg/dL Estimated GFR > 60.0 (>60) mL/min BUN/Creatinine Ratio 26.0 H (6-22) Glucose 98 (80-110) mg/dL Calcium 9.7 (8.4-10.2) mg/dL Total Bilirubin 0.6 (0.2-1.3) mg/dL AST 28 (14-36) IU/L ALT 19 (<35) IU/L Alkaline Phosphatase 106 (38-126) U/L Total Creatine Kinase 431 H (30-135) U/L CK-MB (CK-2) 3.75 H (<2.37) ng/mL CK-MB (CK-2) Rel Index 0.9 L (1.5-5.0) % Troponin I < 0.012 (0.01-0.034) ng/mL Total Protein 7.1 (6.3-8.2) g/dL Albumin 4.3 (3.5-5.0) g/dL Globulin 2.8 (1.7-4.1) g/dL Albumin/Globulin Ratio 1.5 (1.0-2.8) Urine Color Urine Appearance Urine pH (4.5-8.0) Ur Specific [place] (1.000-1.035) Urine Protein (Negative) Urine Glucose (UA) (Negative) g/dL Urine Ketones (NEGATIVE) Urine Occult Blood (Negative) Urine Nitrate (Negative) Urine Bilirubin (NEGATIVE) Urine Urobilinogen (0.2) E.U./dL Ur Leukocyte Esterase (NEGATIVE) Urine RBC (0-5/HPF) Urine WBC (0-5/HPF) Ur Squamous Epith Cells (0-5/HPF) Amorphous Sediment Urine Bacteria (None) WBC Casts (None) Urine Mucus (Negative) Ur Culture Indicated? SARS-CoV-2 (PCR) (Negative) 12/08/21 12/08/21 Range/Units 12:00 14:16 WBC (4.5-11.0) X10^3/uL RBC (4.0-5.2) X10^6/uL Hgb (12.0-16.0) g/dL Hct (36-46) % MCV (80-100) fL MCH (26-34) PG MCHC (30-36) % RDW (11.6-14.8) % Plt Count (150-400) X10^3/uL Neut % (Auto) (50-75) % Lymph % (Auto) (25-40) % Rankin % (Auto) (3-14) % Eos % (Auto) (2-4) % Baso % (Auto) (0-2) % Neut # (Auto) (5177-8215) /uL Lymph # (Auto) (7281-1402) /uL Rankin # (Auto) (0-900) /uL Eos # (Auto) (0-450) /uL Baso # (Auto) (0-100) /uL Sodium (137-145) mmol/L Potassium (3.4-5.1) mmol/L Chloride (98-107) mmol/L Carbon Dioxide (22-32) mmol/L BUN (7-17) mg/dL Creatinine (0.52-1.04) mg/dL Estimated GFR (>60) mL/min BUN/Creatinine Ratio (6-22) Glucose (80-110) mg/dL Calcium (8.4-10.2) mg/dL Total Bilirubin (0.2-1.3) mg/dL AST (14-36) IU/L ALT (<35) IU/L Alkaline Phosphatase (38-126) U/L Total Creatine Kinase (30-135) U/L CK-MB (CK-2) (<2.37) ng/mL CK-MB (CK-2) Rel Index (1.5-5.0) % Troponin I (0.01-0.034) ng/mL Total Protein (6.3-8.2) g/dL Albumin (3.5-5.0) g/dL Globulin (1.7-4.1) g/dL Albumin/Globulin Ratio (1.0-2.8) Urine Color Yellow Urine Appearance Cloudy Urine pH 5.0 (4.5-8.0) Ur Specific [place] 1.020 (1.000-1.035) Urine Protein Trace H (Negative) Urine Glucose (UA) Negative (Negative) g/dL Urine Ketones Trace H (NEGATIVE) Urine Occult Blood 3+ H (Negative) Urine Nitrate Negative (Negative) Urine Bilirubin Negative (NEGATIVE) Urine Urobilinogen 0.2 (0.2) E.U./dL Ur Leukocyte Esterase Trace H (NEGATIVE) Urine RBC 1-5/hpf (0-5/HPF) Urine WBC 10-30/hpf H (0-5/HPF) Ur Squamous Epith Cells 5-10 /hpf H (0-5/HPF) Amorphous Sediment 1+ Urine Bacteria Occasional (0-1) (None) WBC Casts 1-5/lpf H (None) Urine Mucus 1+ H (Negative) Ur Culture Indicated? Specimen cultured SARS-CoV-2 (PCR) Negative (Negative) Imaging Data CT scan - abdomen/pelvis: Radiologist's Impression: Close Abdomen/Pelvis CT (Signed) Manohar Howell - 08/06/21 Pelvis Ultrasound (Signed) Neal Mims - 07/16/21 Mammogram Screening (Signed) Jose Guadalupe Klein - 07/09/21 Bone Densitometry 07/09/21 DEXA Result 07/09/21 Thyroid Ultrasound (Signed) Gamaliel Jones - 08/16/20 Hip X-Ray (Signed) Nick Mendez - 07/12/20 Brain MRI (Signed) Edwina Pfeiffer - 05/22/19 Thyroid Ultrasound (Signed) Cristopher Marin - 05/04/19 Elbow X-Ray (Signed) Cristopher Marin - 08/16/18 Mammogram Screening (Signed) Gregg Dawson - 05/06/18 Radiology - Historical 06/07/17 Radiology - Historical 06/12/16 Launch?[address] [address] [address] Scan Report Signed Patient: Brenda Toure MR#: [id number] : 1955 Acct:[id number] Age/Sex: 65 / F Date of Service: 08/06/21 Loc: ED Accession Number: [id number] ?? Procedure: CT abdomen pelvis w con Ordering Provider: Soha Acuna D.O. PROCEDURE:? CT ABDOMEN PELVIS W CON ? INDICATIONS:? gi bleed, n/v, pain, IV contrast only ? TECHNIQUE:? After the administration of intravenous contrast, axial sections acquired from the lung bases to the pubic symphysis.? Coronal and sagittal reformats were performed.? For radiation dose reduction, the following was used:? automated exposure control, adjustment of mA and/or kV according to patient size.? ? COMPARISON:? None. ? FINDINGS:? Image quality:? Excellent.? ? Lung bases:? Unremarkable. Heart:? No significant findings. ? ABDOMEN: Liver:? Unremarkable.? ? Gallbladder:? Unremarkable.? ? Biliary ducts:? Unremarkable.? ? Pancreas:? Unremarkable.? ? Spleen:? Multiple calcifications within the spleen. Adrenal Glands:? Unremarkable.? ? Kidneys and Ureters:? Unremarkable.? ? ? Stomach and Bowel:? Moderate thickening of the gastric antrum is present.? Small bowel is grossly unremarkable.? Appendix is normal.? Colon is nondistended.? There is moderate thickening of the proximal and mid sigmoid colon.? Mild thickening of the rectum.? Mild pericolonic fat stranding surrounds the sigmoid colon. Peritoneum:? No pneumoperitoneum.? Small amount of free fluid within the pelvis. ? Ventral Wall: ? No hernias.? Abdominal Nodes:? No retroperitoneal or mesenteric adenopathy by size criteria.? Vessels:? Aorta and inferior vena cava are normal in size.? ? PELVIS: Pelvic Organs:? Unremarkable.? ? Bladder:? Asymmetric thickening of the superior and right aspect of the urinary bladder with relative sparing of the left aspect of the urinary bladder. Pelvic Nodes: No enlarged lymph nodes.? Miscellaneous: No hernias are seen. ? ? ? Bones:? Unremarkable.? IMPRESSION:? 1. Thickening of the distal colon as described above.? Differential considerations include ischemia, infection, and inflammation.? Underlying neoplasm may also be present. 2. Normal appendix. 3. Thickening of the gastric antrum, possibly indicating peptic ulcer disease or neoplasm.? Further assessment with endoscopy is recommended. 4. Remote granulomatous disease.? ? ? Dictated by: Manohar Howell M.D. on 08/06/2021 at 14:33 ? ? Approved by: Manohar Howell M.D. on 08/06/2021 at 14:39?? MDM Narrative Medical decision making narrative: 65-year-old female comes with complaint of abdominal cramping, rectal bleeding and has colitis with no major changes to hemoglobin today. Patient has not been hypotensive or tachycardic. Her labs are otherwise reassuring. After discussion plan to treat with a course steroids for possible early inflammatory colitis. Patient is supposed to have a colonoscopy but has not actually been scheduled. She was given referral to follow up urgently. All questions answered. Return precautions were discussed. Discharge Plan Departure Patient Disposition: Home Clinical Impression: Colitis Instructions: DI for Colitis Activity Restrictions/Additional Instructions: Follow-up with your physician at her appointment next week. It is recommended you have a colonoscopy in the next several weeks to a month after the inflammation has improved you can follow-up with General surgery or Gastroenterology. A referral is included below You may take Tylenol up to a 1000 mg every 8 hours for pain. Colitis can sometimes you bacterial, infectious or have a variety of causes. Prednisone may be helpful and a prescription has been sent to [place] [facility]. Take prednisone daily until gone. Please return for new or worsening symptoms, lightheadedness, passing out, persistent vomiting, worsening abdominal pain, increasing frequency or large amounts of blood or other new or concerning symptoms. Prescriptions: New prednisone 20 mg tablet 40 mg PO DAILY Qty: 10 0RF No Action [VITAMIN D3] 2,000 iu PO QDAY Qty: 0 0RF metronidazole [Metrogel] 1 % gel 1 applic topical BEDTIME Qty: 60 1RF triamcinolone acetonide 0.1 % cream 1 applic topical BID PRN (Reason: Eczema) Qty: 15 1RF [CMP BI-EST] See Rx Instructions TOP BID Qty: 60 4RF Dose Instruction: 2 pumps TOP BID; Rx Instructions: 2 pumps TOP BID; Allergy shots See Rx Instructions .ROUTE .COMPLEX 0RF Label Comments: 3 injections SQ every other week at Dr. Jeronimo' office. Rx Instructions: 3 injections SQ every other week at Dr. Jeronimo' office. fexofenadine [Patricia Allergy] 180 mg tablet 180 mg PO DAILY PRN0RF ipratropium bromide 42 mcg (0.06 %) spray,non-aerosol 2 spray NASAL TID 0RF Rx Instructions: Prescribed by Dr. Jeronimo hydrocodone-acetaminophen 5-325 mg tablet See Rx Instructions PO Q8H PRN (Reason: pain) Qty: 45 0RF Rx Instructions: 1-2 tabs PO every 8 hours PRN; cyclobenzaprine 10 mg tablet 10 mg PO TID PRN (Reason: muscle spasm) Qty: 60 1RF diclofenac sodium 1 % gel 2 g TOP QID PRN (Reason: pain) 0RF Rx Instructions: apply to elbow up to 4 times a day levothyroxine 88 mcg tablet 88 mcg PO DAILY Qty: 90 3RF Rx Instructions: Take one tablet once daily for thyroid lisinopril 10 mg tablet 10 mg PO DAILY Qty: 30 2RF Referrals: Roly Tapia MD [Non-Staff] - Sina Ennis DO [Primary Care Provider] -
== END 2021-08-06 15:52 | disposition home or self-care (01) ==
PROVIDERS: Emergency Provider Emergency Medicine; PCP Family Medicine
DX: K52.9 Noninfective gastroenteritis and colitis, unspecified (principal); Z20.822 Contact with and (suspected) exposure to COVID-19
CPT/HCPCS: 36415; 74177; 80053; 81001; 82550; 82553; 84484; 85025; 87086; 87635; 96374; 99284; C9803; C9113; Q9967

== ENCOUNTER → 2021-09-15 10:50 | Outpatient (CLI) | payer OTHER, SELFPAY ==
[2021-09-15 13:08] LABS: COVID19 -Nasal RAPID Negative (Negative)
== END ==
PROVIDERS: PCP Family Medicine; Referring Provider Internal Medicine Gastroenterology; Visit Provider Internal Medicine Gastroenterology
DX: Z20.822 Contact with and (suspected) exposure to COVID-19 (principal)
CPT/HCPCS: 87635; C9803

== ENCOUNTER 2021-09-17 09:36 | Day surgery (SDC) | payer OTHER, SELFPAY ==
--- NOTE | 2021-09-17 | PATH_ITS ---
[facility] Accession Number: [id number] . 01 Material submitted: . PART A: colon - RANDOM CECAL COLON BIOPSY PART B: rectum - RECTAL COLON POLYP PART C: small bowel - SMALL BOWEL BIOPSIES PART D: gastrointestinal site - STOMACH BIOPSY . 01 Clinical history: . A: R/O MICROSCOPIC BLEEDING, DIARRHEA D: R/O H.PYLORI . 02 Diagnosis: A. Random Cecal Colon Biopsy: Colonic mucosa with no diagnostic abnormality. Negative for active, chronic, and microscopic colitis. Negative for dysplasia and malignancy. . B. Rectal Colon Polyp: Hyperplastic polyp. . C. Small Bowel Biopsies: Duodenal mucosa with no diagnostic abnormality. Negative for active inflammation, features of sprue, dysplasia, or malignancy. . D. Stomach Biopsy: Gastric antral mucosa with mild chronic inflammation. Negative for Helicobacter organisms by immunohistochemistry. Negative for intestinal metaplasia. Negative for dysplasia or malignancy. [facility] 09/23/2021 1535 Local . 02 Electronically signed: . Nancy Shrestha MD, Pathologist NPI- [id number] . 01 Gross description: . Part A: RANDOM CECAL COLON BIOPSY: Received in formalin are 3 fragment(s) of yancey, soft tissue measuring 0.2 x 0.2 x 0.2 cm to 0.1 x 0.1 x 0.1 cm submitted entirely in 1 cassette(s) Part B: RECTAL COLON POLYP: Received in formalin is 1 fragment(s) of yancey, soft tissue measuring 0.2 x 0.2 x 0.2 cm submitted entirely in 1 cassette(s) Part C: SMALL BOWEL BIOPSIES: Received in formalin are 2 fragment(s) of yancey, soft tissue measuring 0.2 x 0.2 x 0.2 cm to 0.2 x 0.2 x 0.1 cm submitted entirely in 1 cassette(s) Part D: STOMACH BIOPSY: Received in formalin is 1 fragment(s) of yancey, soft tissue measuring 0.2 x 0.2 x 0.1 cm submitted entirely in 1 cassette(s) /[facility] 09/19/2021 1312 Local . 02 Microscopic: . D. An immunohistochemical stain was performed to evaluate for Helicobacter organisms and is negative for Helicobacter organisms by immunohistochemical studies. The control stain showed appropriate reactivity. . * This test was developed and its performance characteristics determined by [facility]. It has not been cleared or approved by the U.S. Food and Drug Administration. The FDA has determined that such clearance or approval is not necessary. This test is used for clinical purposes. It should not be regarded as investigational or for research. . 02 Pathologist provided ICD-10: R19.7 . 02 CPT . 361489, 562315, 652794, 416885, T67549 Performed at: 01 [facility] [address] [address], [place], [place] [id number] MD Zia Baker MD Phone: [phone] Performed at: 02 [facility] [address] [place] [id number] MD Felisha Hoskins MD Phone: [phone]
[2021-09-17 10:00] VITALS: BP 117/64; PULSE 63; RESP 14; TEMP 36.6; O2SAT 99
--- NOTE | 2021-09-17 10:07 | PM.HP.1 ---
History of Present Illness History of Present Illness Date Patient Seen: 09/17/21 Chief complaint: [facility] Narrative: Abdominal pain, nausea and vomiting, rectal bleeding, diarrhea, abnormal CT scan showing possible wall thickening in the antrum and the sigmoid Patient History Medical History Abdominal pain Abnormal laboratory test result Low back pain Multiple thyroid nodules Plantar wart Post-menopausal Screening for malignant neoplasm of colon URI (upper respiratory infection) Surgical History S/P total abdominal hysterectomy and bilateral salpingo-oophorectomy Family & Social History Family History Father Heart disease Tobacco & Substance use: Smoking Status Former smoker alcohol intake current Meds Home Medications and Allergies Home Medications Medication Instructions Recorded Confirmed Type [VITAMIN D3] 2,000 iu PO QDAY #0 06/07/17 08/12/21 History Allergy shots See Rx Instructions .ROUTE .COMPLEX 02/13/19 08/12/21 History fexofenadine 180 mg tablet 180 mg PO DAILY PRN 02/13/19 08/12/21 History (Patricia Allergy) ipratropium bromide 42 mcg (0.06 2 spray NASAL TID 10/09/19 08/12/21 History %) nasal spray cyclobenzaprine 10 mg tablet 10 mg PO TID PRN #60 tab 09/27/20 08/12/21 Rx hydrocodone 5 mg-acetaminophen 325 See Rx Instructions PO Q8H PRN #45 09/27/20 08/12/21 Rx mg tablet tab metronidazole 1 % topical gel 1 applic TOPICAL BEDTIME #60 g 12/19/20 08/12/21 Rx (Metrogel) diclofenac sodium 1 % topical gel 2 g TOP QID PRN gram 03/27/21 08/12/21 History lisinopril 10 mg tablet 10 mg PO DAILY #30 tab 05/20/21 08/12/21 Rx levothyroxine 88 mcg tablet 88 mcg PO DAILY #90 tab 06/18/21 08/12/21 Rx prednisone 20 mg tablet 40 mg PO DAILY #10 tab 08/06/21 08/12/21 Rx [CMP BI-EST] See Rx Instructions TOP BID #60 08/08/21 08/12/21 Rx applictn clobetasol 0.05 % scalp solution 1 applic TOPICAL Q2W #50 ml 08/12/21 08/12/21 Rx pantoprazole 20 mg tablet,delayed 20 mg PO DAILY #90 tab 08/18/21 Rx release Allergies Allergy/AdvReac Type Severity Reaction Status Date / Time morphine [MORPHINE] Allergy Severe ITCHING Verified 08/12/21 09:08 tramadol AdvReac Mild Itching Verified 08/12/21 09:08 Exam Narrative Exam Narrative: Oropharynx free of lesions Chest clear to auscultation percussion Cardiac exam reveals no S3 or murmur Assessment & Plan Assessment & Plan narrative: Multiple symptoms many of which have done better with abnormal CT scan showing wall thickening in the antrum and sigmoid. Rule out underlying colitis or peptic disease. Risks, benefits, alternatives have been explained. Time Spent With Patient Critical Care time: I spent a total of [] minutes of critical care time on this patient's care today; this time is exclusive of procedural time.
[2021-09-17] MEDS: SODIUM CHLORIDE 0.9% 1,000 ML 84 ML IV (10:18)
--- NOTE | 2021-09-17 10:51 | PM.OP.EC ---
Operative Date/Time/Diagnoses Date of procedure: 09/17/21 Pre-op diagnosis: See indication and findings Procedure & Clinicians Study performed: EGD and colonoscopy Indications: Abdominal pain nausea vomiting diarrhea rectal bleeding much which is resolved but with CT scan showing wall thickening in the antrum and the sigmoid colon. Rule out colitis and gastritis Surgeon: Kira Hanson Procedure Notes Procedure in detail: After informed consent was obtained the patient was placed in left lateral decubitus position. The video colonoscope was introduced the rectum slowly advanced cecum. Preparation was good. On slow withdrawal mucosa was carefully examined. The scope was removed. The patient post procedure well. Patient was then turned in the upper scope substituted. This was passed through the mouth into the esophagus stomach and duodenum. On withdrawal retroflexed view the GE junction was performed. The scope was removed. The patient tolerated procedure well. Blood loss none Complications none Sedation mac Colonoscopy 1. Scattered sigmoid diverticula 2. Otherwise negative colonoscopy to cecum. Biopsies taken to rule out microscopic colitis EGD 1. Normal esophagus 2. Striped gastric erythema biopsies taken to rule out Helicobacter 3. Normal duodenal bulb and sweep biopsies taken to rule out celiac Will call regarding biopsies. She can then follow up in the GI office either an anti Cordis or never had with Dr. Rouse as he originally saw her to go over any other additional symptoms.
[2021-09-17 11:07] VITALS: BP 120/85; PULSE 67; RESP 18; TEMP 36.8; O2SAT 95
[2021-09-17 11:13] VITALS: BP 156/59; PULSE 69; RESP 20; O2SAT 97
[2021-09-17 11:19] VITALS: BP 121/70; PULSE 61; RESP 16; O2SAT 97
[2021-09-17 11:21] VITALS: BP 120/68; PULSE 66; RESP 22; TEMP 36.7; O2SAT 96
[2021-09-17 11:35] VITALS: BP 133/72; PULSE 55; RESP 16; TEMP 36.6; O2SAT 99
[2021-09-17] MEDS: ONDANSETRON 4 MG/2 ML INJ IV (11:35)
== END 2021-09-17 11:50 | disposition home or self-care (01) ==
PROVIDERS: PCP Family Medicine; Referring Provider Internal Medicine Gastroenterology; Visit Provider Internal Medicine Gastroenterology
PROC: 0DJ08ZZ Inspection of Upper Intestinal Tract, Via Natural or Artificial Opening Endoscopic (ICD-10-PCS; CPT 43235; principal; 2021-09-17 11:00)
PROC: 0DJD8ZZ Inspection of Lower Intestinal Tract, Via Natural or Artificial Opening Endoscopic (ICD-10-PCS; CPT 45378; 2021-09-17 11:00)
DX: R10.9 Unspecified abdominal pain (principal); R93.5 Abnormal findings on diagnostic imaging of other abdominal regions, including retroperitoneum; K57.30 Diverticulosis of large intestine without perforation or abscess without bleeding; K62.5 Hemorrhage of anus and rectum; R19.7 Diarrhea, unspecified; R11.2 Nausea with vomiting, unspecified; I10 Essential (primary) hypertension; K29.50 Unspecified chronic gastritis without bleeding; K62.1 Rectal polyp
CPT/HCPCS: 45380; 43239; J2405; J2704

== ENCOUNTER → 2022-07-01 10:29 | Outpatient (CLI) | payer MEDICARE, OTHER, SELFPAY ==
--- NOTE | 2022-07-01 10:36 | DI.RAD.S_ITS ---
PROCEDURE: XR ANKLE LT MIN 3V INDICATIONS: PAIN IN LEFT ANKLE TECHNIQUE: 3 views of the ankle were acquired. COMPARISON: None. FINDINGS: Bones: No acute fractures or dislocations. Ankle mortise is normally aligned. No suspicious bony lesions. Soft tissues: No suspicious soft tissue calcification. IMPRESSION: No acute osseous abnormality. If the symptoms persist, consider cross sectional imaging such as MRI or CT for further assessment. Approved by: Leonidas Houser M.D. on 07/01/2022 at 11:56
== END ==
PROVIDERS: PCP Family Medicine; Referring Provider Family Medicine; Visit Provider Family Medicine
DX: M25.572 Pain in left ankle and joints of left foot (principal)
CPT/HCPCS: 73610

== ENCOUNTER → 2022-08-13 11:50 | Outpatient (CLI) | payer MEDICARE, OTHER, SELFPAY ==
--- NOTE | 2022-08-13 11:54 | DI.RAD.S_ITS ---
PROCEDURE: XR LUMBAR SPINE 2-3V INDICATIONS: BACK PAIN TECHNIQUE: 3 views of the lumbar spine were acquired. COMPARISON: [facility], , L-SPINE 2-3 VIEWS, 06/09/2010, 13:02. FINDINGS: Bones: 5 [id number] vertebrae are present. Moderate levocurvature centered at L2. Prominent lower lumbar facet arthropathy. Multilevel severe disc height loss. No vertebral body compression fractures. No suspicious bony lesions. Soft tissues: Overlying bowel gas pattern is normal. No suspicious soft tissue calcifications. IMPRESSION: Scoliotic curvature. Degenerative change. No evidence acute bony abnormality of the lumbar spine. Dictated by: Hao Mac M.D. on 08/13/2022 at 17:42 Approved by: Hao Mac M.D. on 08/13/2022 at 17:54
[2022-08-13 13:34] LABS: Add Manual Diff / Slide Review NO; Basophils Absolute Auto 0 /uL (0-100); Basophils Percent Auto 0.7 % (0-2); Eosinophils Absolute Auto 100 /uL (0-450); Eosinophils Percent Auto 1.4 % (2-4); Hematocrit 41.1 % (36-46); Hemoglobin 14.1 g/dL (12.0-16.0); Lymphocytes Absolute Auto 1400 /uL (1100-4500); Lymphocytes Percent Auto 21.4 % (25-40); Mean Corpuscular HGB Conc 34.3 % (30-36); Mean Corpuscular Hemoglobin 31.5 PG (26-34); Mean Corpuscular Volume 91.9 fL (80-100); Monocytes Absolute Auto 400 /uL (0-900); Monocytes Percent Auto 6.8 % (3-14); Neutrophils Absolute Auto 4600 /uL (1500-7000); Neutrophils Percent Auto 69.7 % (50-75); Platelet Count 290 X10^3/uL (150-400); Red Blood Cell Count 4.48 X10^6/uL (4.0-5.2); Red Cell Distribution Width 13.2 % (11.6-14.8); White Blood Cell Count 6.6 X10^3/uL (4.5-11.0)
[2022-08-13 15:05] LABS: Folate > 20.0 ng/mL (2.76-20.0); Vitamin B12 760 pg/mL (239-931)
== END ==
PROVIDERS: PCP Family Medicine; Referring Provider Family Medicine; Visit Provider Family Medicine
DX: M47.816 Spondylosis without myelopathy or radiculopathy, lumbar region (principal); M54.50 Low back pain, unspecified; R20.0 Anesthesia of skin; R53.83 Other fatigue; M25.572 Pain in left ankle and joints of left foot; F41.9 Anxiety disorder, unspecified
CPT/HCPCS: 36415; 72100; 82607; 82746; 85025

== ENCOUNTER 2023-03-04 09:30 | Outpatient (RCR) | payer MEDICARE, OTHER, SELFPAY ==
--- NOTE | 2022-12-10 15:42 | PT.OPPOC ---
Physical, Occupational & Speech Therapy At [facility] Current Diagnoses Other intervertebral disc degeneration, lumbosacral region (12/10/22) Lumbago with sciatica, unspecified side (12/10/22) Unsteadiness on feet (12/10/22) Visit Care Team Role Provider Type Deya Meyer MD Attending Provider Physician Family Provider Primary Care Provider Referring Provider Specialty: Family Practice Address: [address] [place] [address], [facility] [place], [address] Email: [email or web address] Plan Of Care PT-OP-T Assessment and Plan Start: 12/03/22 19:44 Freq: Status: Active Protocol: Document 12/10/22 09:53 LRN (Rec: 12/10/22 11:27 LRN [id number]) Physical Therapy Assessment Rehab Potential Rehabilitation Potential Good Evaluation Complexity Number of Personal Factors/Comorbidities 1-2 Impairments Impairments Activity Tolerance,Balance, Functional Activities, Functional Mobility,Gait,Pain, Posture,ROM,Sensation Other Impairments Stiffness Other Concerns Barriers to Rehabilitation Chronicity of back pain (8-9 yrs). Goals Three Impairment Decreased function due to pain . Rv Detailer Goal (LTG) Pt will be able to bend over to give dogs a bath, with positional modifications as needed to perform the activity with a tolerable pain level ( 15 minutes or greater). LTG Duration 03/12/23 Two Impairment Decreased Mobility. Impairment Hip mobility (in deg's): IR is 25 R, 15 L; ER is 75 R, 60 L, SLR is 80 R, 70 L. Trunk mobility (in deg's): Flex 52 (45 hip flex), Ext 11 (11 hip ext), Rot is 10 R, 20 L; SB is 0 R, 5 L. Short Term Goal (STG) Improve hip/trunk mobility with the pt able to move with greater ease in the moring. STG Duration 01/22/23 Senior Living Goal (LTG) Improve hip/trunk mobility with the pt able to put on her socks without difficulty. LTG Duration 03/12/23 One Impairment Pt lacks appropriate self care HEP. Short Term Goal (STG) Pt will be educated in log roll transfers, proper sitting & standing posture, proper resting posture, and proper body mechanics for ADLs. STG Duration 12/25/22 Senior Living Goal (LTG) Pt will be independent in an effective self care HEP for mobility ex's, and as needed, balance and strengthening exercises. LTG Duration 03/12/23 Assessment Summary Assessment Pt is a 67 yo female who present with LBP/R hip pain that shows signs of L/S neural involvement with + slump test and relief of LBP with manual lumbar traction. She shows bilateral diminished patellar and R achilles DTR reflex and absent L achilles DTR. Posturally show shows S-curve of the spine with upper apex ~ T5 and lower apex ~L2 The pt also demonstrates reduced trunk and hip mobility due to LBP rather than tight muscles limiting her functional mobility possibly exacerbating her neurological symptoms. Stiffness may be due to prolonged pt self limitation of mobility due to pain. The pt will benefit from skilled physical therapy for education on self care of posture, body mechanics and self care pain management, and to decrease pain, improve trunk and hip mobility improve hip strength. Physical Therapy Plan Frequency and Duration Frequency of Treatment 2x/Week Plan of Care Start Date 12/10/22 Plan of Care End Date 03/12/23 Therapeutic Interventions Therapeutic Interventions Home Exercise Program,Joint Mobilizations,Manual Therapy, Neuromuscular Re-education, Patient/Caregiver Education, Self-Care/Home Management,Soft Tissue Mobilization, Therapeutic Activities, Therapeutic Exercises Modalities Cold Pack/Ice Massage,Electric Stimulation,Hot Packs, Ultrasound Next Visit Focus/Plan Next Note Type Treatment Note Next Visit Plan Assess standing balance and stair ambulation safety. Recheck Hip AD strength. Further assess soft tissue of lumbosacral region and for SIJ dysfunction. Check: Braulio Test. Exer/HEP: L>R Piriformis stretch (L>R for a couple weeks fig 4), R trunk rot/R SB - scoliosis ex program, try L /S Yudith ext vs Ramses flex ex's for LBP (caution: scoliosis). Pt education: Proper sitting & standing posture, proper resting posture, Proper body mechanics for ADLs. Manual: STM back, hips as needed for pain, stretch to back/hips. Sacral mob. Modalities: MH/IFES to full back or mid>LB. Plan of Care Dates Plan of Care Start Date 12/10/22 Plan of Care End Date 03/12/23 Electronically Signed by: Tracy Saleem, PT 12/12/22 1547 If you are in agreement with this Plan of Care, please return a signed and dated copy. I have reviewed this Plan of Care and certify that the skilled therapy services above are required to meet the patient?s needs. Physician Signature Date Printed Name and Credentials Clinical Instructor Signature Printed Name and Credentials
--- NOTE | 2022-12-10 17:42 | PT.OIE ---
Current Diagnoses Other intervertebral disc degeneration, lumbosacral region (12/10/22) Lumbago with sciatica, unspecified side (12/10/22) Unsteadiness on feet (12/10/22) Past Medical History (Last Reviewed 08/29/21 @ 08:51 by Sina Ennis DO) Abdominal pain Abnormal laboratory test result Low back pain Multiple thyroid nodules Plantar wart Post-menopausal Screening for malignant neoplasm of colon URI (upper respiratory infection) Past Surgical History (Last Reviewed 08/06/21 @ 15:34 by Soha Acuna DO) S/P total abdominal hysterectomy and bilateral salpingo-oophorectomy Visit Care Team Role Provider Type Deya Meyer MD Attending Provider Physician Family Provider Primary Care Provider Referring Provider Specialty: Family Practice Address: [address] [place] [address], [facility] Email: [email or web address] Physical Therapy Initial Evaluation PT-OP-A Visit Information Start: 12/03/22 19:44 Freq: Status: Active Protocol: Document 12/10/22 09:53 LRN (Rec: 12/10/22 11:27 LRN [id number]) Out-Patient Physical Therapy Visit Information Visit Information Visit Type Initial Evaluation Visit Start Time 09:53 Visit Stop Time 10:42 Total Visit Minutes 49 Visit Number 1 Evaluation Information Evaluation Date 12/10/22 Precautions Precautions L thumb joint replacement, arthritis, chronic history of back pain. PT-OP-B Current Condition Start: 12/03/22 19:44 Freq: Status: Active Protocol: Document 12/10/22 09:53 LRN (Rec: 12/10/22 11:27 LRN [id number]) Current Condition History of Current Condition Onset Date 8-9 yrs ago Current Complaints Back pain/stiffness especially bending over for any length of time. History of Current Condition Back pain started due degenerative arthritis onset 8 -9 yrs ago. Had therapy for not being able to roll in bed and get dressed in the morning , but managed with medication started 1 yr ago. Now left with stiffness in the back and pain if bent over for any length of time ~5-10 minutes. Pt in physical therapy at MD recommendation. She reports problem with balalnce and has trouble getting her foot up to put socks on. When showering uses bench to put feet up to wash feet, otherwise wouldn't be able to bend over to perform that. If bent over too long, the back becomes unbearably painful, requiring repositioning to get the pain to stop (ex-stand up, twist). She states bending over to pick things up off the ground is uncomfortable. Prior Treatments and Tests Physical Therapy x 2, for stiffness 9 yrs and 5 yrs ago, not successful. Pt reports no longer having home exercises. Developmental History Developmental History 1 yr ago doctor put her on amitriptyline because she couldn't roll in bed and was then able to move better. Treatment Goals Patient/Caregiver Goals Pt goals: able to move in the morning, get stretches to improve mobility, and be able to bend over to give dogs a bath. Prior Functional Status Baseline Function- ADL's Independent Baseline Function- Mobility Independent Baseline Function- Work/School Retired from [employer] in 2019. 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 Current Functional Impairments (Reported) Functional Limitations- ADL's Have difficulty putting socks/ shoes on. Losses balance a little, can't stand independently to put pants on, needs to lean against wall. Functional Limitations- Mobility/Gait Bending over 5-10 minutes to give dogs a bath causes a lot of back pain. Functional Limitations- Other Not able to lift her 70# dog. Personal Factors Other Personal Factors That May Effect Lives alone, arthritis Therapy/Recovery PT-OP-C Subjective Start: 12/03/22 19:44 Freq: Status: Active Protocol: Document 12/10/22 09:53 LRN (Rec: 12/10/22 11:27 LRN [id number]) Patient Questionnaires Oswestry Low Back Index Oswestry Score 9 Oswestry Impairment 1 to 19% Impaired (Score 1-19) OP-PT Pain Assessment Pain Assessment Grid Paper Pain Assessment Grid Completed Yes Location R lateral hip Pain Location Details R lateral hip Intensity 7 Scale Used Numeric (0 - 10) Description- Other Constant pain is 2/10, intermittent 7-8/10 Frequency Intermittent Low Back Pain Location Details Across LB Intensity 3 Scale Used Numeric (0 - 10) Frequency Constant Comments Pain Comments Likes to sleep on R side. PT-OP-G Mobility & Gait Start: 12/03/22 19:44 Freq: Status: Active Protocol: Document 12/10/22 09:53 LRN (Rec: 12/10/22 11:27 LRN [id number]) OP Gait Assessment Gait Gait Assistance Required: Independent Able to Maintain Weight Bearing Status Yes During Gait Assistive Devices Assistive Device None Gait Deviations General Gait Pattern Lateral Trunk Lean,Wide Based Gait Comments Gait Comments No pain with gait. Factors limiting gait: Stiffness of extremities, and reported decreased balance. Stair Climbing Evaluation Comments Stair Climbing Comments No pain with stair ambulation. PT-OP-H Neuro Start: 12/03/22 19:44 Freq: Status: Active Protocol: Document 12/10/22 09:53 LRN (Rec: 12/10/22 11:27 LRN [id number]) Sensation Evaluation Gross Sensation Sensation Description Numbness,Tingling Comments Summary Comments L middle toe numb for a few years. R middle toe is starting to go numb. Tingling and pain is intermittent, numbness constant. Deep Tendon Reflex & Clonus Assessment Deep Tendon Reflex Right Achilles Deep Tendon Reflex 1+ Diminished Left Achilles Deep Tendon Reflex 0 Absent Bilateral Patellar Deep Tendon Reflex 1+ Diminished PT-OP-J Posture/Palpation/Skin Start: 12/03/22 19:44 Freq: Status: Active Protocol: Document 12/10/22 09:53 LRN (Rec: 12/10/22 11:27 LRN [id number]) Posture Evaluation Position Standing Head/C-Spine Posture Side Bent Left,Forward Head L-Spine Posture Increased Lordosis Shoulder Posture (R) Elevated Arm Posture (L) Internally Rotated,(R) Internally Rotated Weight Distribution Balanced Comments Posture Comments Sway back, S-curve of spine: R upper apex on R ~T5, lower apex on L ~L2. Palpation Assessment Location Sacrum Palpation Location R rotated Low back Palpation Location Pain at spinous process L4, L5 Palpation Findings Tenderness PT-OP-K Range of Motion Start: 12/03/22 19:44 Freq: Status: Active Protocol: Document 12/10/22 09:53 LRN (Rec: 12/10/22 11:27 LRN [id number]) Lumbar Spine Range of Motion Lumbar Spine Active Degrees Testing Position Standing Flexion 52 Extension 11 Rotation Left 20 Rotation Right 10 Lateral Flexion Left 5 Lateral Flexion Right 0 ROM Limitations Soft Tissue Tightness,Pain Comments Trunk Flexion is 52 deg?s with 45 deg?s hip flexion, Trunk extension is 11 deg?s with 11 deg?s hip extension. Hip Goniometric Range of Motion Hip Right Passive Testing Position Supine Straight Leg Raise 80 Internal Rotation 25 External Rotation 75 Left Passive Testing Position Supine Straight Leg Raise 70 Internal Rotation 15 External Rotation 60 PT-OP-L Special Tests Start: 12/03/22 19:44 Freq: Status: Active Protocol: Document 12/10/22 09:53 LRN (Rec: 12/10/22 11:27 LRN [id number]) Special Tests Lumbar Spine Special Tests Manual Traction Test Results + Comments Relieves LBP Slump Test Results + Comments neural tension Vertical Spine Loading Test Results - Comments Caused trunk ext PT-OP-M Strength Start: 12/03/22 19:44 Freq: Status: Active Protocol: Document 12/10/22 09:53 LRN (Rec: 12/10/22 11:27 LRN [id number]) Trunk Strength Trunk Manual Muscle Testing Core Stabilization Cores account maintenance representative Chimney Repairer/Pinch Strength Hand Dominance Hand Dominance Right Hip Strength Hip Manual Muscle Testing Right Flexion (L2) 5 Normal Abduction 5 Normal Adduction 2+ Poor+ External Rotation 5 Normal Internal Rotation 5 Normal Left Flexion (L2) 5 Normal Extension (S1) 5 Normal Abduction 5 Normal Adduction 2+ Poor+ External Rotation 5 Normal Internal Rotation 5 Normal PT-OP-Q Treatments Start: 12/03/22 19:44 Freq: Status: Active Protocol: Document 12/10/22 09:53 LRN (Rec: 12/10/22 11:27 LRN [id number]) Self-Care/Home Management Treatment Education Other Education Discussed results of evaluation, goals, and plan of care (POC). Pt agreeable to goals and POC. PT-OP-T Assessment and Plan Start: 12/03/22 19:44 Freq: Status: Active Protocol: Document 12/10/22 09:53 LRN (Rec: 12/10/22 11:27 LRN [id number]) Physical Therapy Assessment Rehab Potential Rehabilitation Potential Good Evaluation Complexity Number of Personal Factors/Comorbidities 1-2 Impairments Impairments Activity Tolerance,Balance, Functional Activities, Functional Mobility,Gait,Pain, Posture,ROM,Sensation Other Impairments Stiffness Other Concerns Barriers to Rehabilitation Chronicity of back pain (8-9 yrs). Goals Three Impairment Decreased function due to pain . Shear Helper Goal (LTG) Pt will be able to bend over to give dogs a bath, with positional modifications as needed to perform the activity with a tolerable pain level ( 15 minutes or greater). LTG Duration 03/12/23 Two Impairment Decreased Mobility. Impairment Hip mobility (in deg's): IR is 25 R, 15 L; ER is 75 R, 60 L, SLR is 80 R, 70 L. Trunk mobility (in deg's): Flex 52 (45 hip flex), Ext 11 (11 hip ext), Rot is 10 R, 20 L; SB is 0 R, 5 L. Short Term Goal (STG) Improve hip/trunk mobility with the pt able to move with greater ease in the moring. STG Duration 01/22/23 Shear Helper Goal (LTG) Improve hip/trunk mobility with the pt able to put on her socks without difficulty. LTG Duration 03/12/23 One Impairment Pt lacks appropriate self care HEP. Short Term Goal (STG) Pt will be educated in log roll transfers, proper sitting & standing posture, proper resting posture, and proper body mechanics for ADLs. STG Duration 12/25/22 Fpc Goal (LTG) Pt will be independent in an effective self care HEP for mobility ex's, and as needed, balance and strengthening exercises. LTG Duration 03/12/23 Assessment Summary Assessment Pt is a 67 yo female who present with LBP/R hip pain that shows signs of L/S neural involvement with + slump test and relief of LBP with manual lumbar traction. She shows bilateral diminished patellar and R achilles DTR reflex and absent L achilles DTR. Posturally show shows S-curve of the spine with upper apex ~ T5 and lower apex ~L2 The pt also demonstrates reduced trunk and hip mobility due to LBP rather than tight muscles limiting her functional mobility possibly exacerbating her neurological symptoms. Stiffness may be due to prolonged pt self limitation of mobility due to pain. The pt will benefit from skilled physical therapy for education on self care of posture, body mechanics and self care pain management, and to decrease pain, improve trunk and hip mobility improve hip strength. Physical Therapy Plan Frequency and Duration Frequency of Treatment 2x/Week Plan of Care Start Date 12/10/22 Plan of Care End Date 03/12/23 Therapeutic Interventions Therapeutic Interventions Home Exercise Program,Joint Mobilizations,Manual Therapy, Neuromuscular Re-education, Patient/Caregiver Education, Self-Care/Home Management,Soft Tissue Mobilization, Therapeutic Activities, Therapeutic Exercises Modalities Cold Pack/Ice Massage,Electric Stimulation,Hot Packs, Ultrasound Next Visit Focus/Plan Next Note Type Treatment Note Next Visit Plan Assess standing balance and stair ambulation safety. Recheck Hip AD strength. Further assess soft tissue of lumbosacral region and for SIJ dysfunction. Check: Braulio Test. Exer/HEP: L>R Piriformis stretch (L>R for a couple weeks fig 4), R trunk rot/R SB - scoliosis ex program, try L /S Yudith ext vs Ramses flex ex's for LBP (caution: scoliosis). Pt education: Proper sitting & standing posture, proper resting posture, Proper body mechanics for ADLs. Manual: STM back, hips as needed for pain, stretch to back/hips. Sacral mob. Modalities: MH/IFES to full back or mid>LB.
--- NOTE | 2022-12-11 17:42 | PT.OIE ---
Current Diagnoses Other intervertebral disc degeneration, lumbosacral region (12/10/22) Lumbago with sciatica, unspecified side (12/10/22) Unsteadiness on feet (12/10/22) Past Medical History (Last Reviewed 08/29/21 @ 08:51 by Sina Ennis DO) Abdominal pain Abnormal laboratory test result Low back pain Multiple thyroid nodules Plantar wart Post-menopausal Screening for malignant neoplasm of colon URI (upper respiratory infection) Past Surgical History (Last Reviewed 08/06/21 @ 15:34 by Soha Acuna DO) S/P total abdominal hysterectomy and bilateral salpingo-oophorectomy Visit Care Team Role Provider Type Deya Meyer MD Attending Provider Physician Family Provider Primary Care Provider Referring Provider Specialty: Family Practice Address: [address] [place] [address], [facility] Email: [email or web address] Physical Therapy Initial Evaluation PT-OP-A Visit Information Start: 12/03/22 19:44 Freq: Status: Active Protocol: Document 12/10/22 09:53 LRN (Rec: 12/10/22 11:27 LRN [id number]) Out-Patient Physical Therapy Visit Information Visit Information Visit Type Initial Evaluation Visit Start Time 09:53 Visit Stop Time 10:42 Total Visit Minutes 49 Visit Number 1 Evaluation Information Evaluation Date 12/10/22 Precautions Precautions L thumb joint replacement, arthritis, chronic history of back pain. PT-OP-B Current Condition Start: 12/03/22 19:44 Freq: Status: Active Protocol: Document 12/10/22 09:53 LRN (Rec: 12/10/22 11:27 LRN [id number]) Current Condition History of Current Condition Onset Date 8-9 yrs ago Current Complaints Back pain/stiffness especially bending over for any length of time. History of Current Condition Back pain started due degenerative arthritis onset 8 -9 yrs ago. Had therapy for not being able to roll in bed and get dressed in the morning , but managed with medication started 1 yr ago. Now left with stiffness in the back and pain if bent over for any length of time ~5-10 minutes. Pt in physical therapy at MD recommendation. She reports problem with balalnce and has trouble getting her foot up to put socks on. When showering uses bench to put feet up to wash feet, otherwise wouldn't be able to bend over to perform that. If bent over too long, the back becomes unbearably painful, requiring repositioning to get the pain to stop (ex-stand up, twist). She states bending over to pick things up off the ground is uncomfortable. Prior Treatments and Tests Physical Therapy x 2, for stiffness 9 yrs and 5 yrs ago, not successful. Pt reports no longer having home exercises. Developmental History Developmental History 1 yr ago doctor put her on amitriptyline because she couldn't roll in bed and was then able to move better. Treatment Goals Patient/Caregiver Goals Pt goals: able to move in the morning, get stretches to improve mobility, and be able to bend over to give dogs a bath. Prior Functional Status Baseline Function- ADL's Independent Baseline Function- Mobility Independent Baseline Function- Work/School Retired from [employer] in 2019. 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 Current Functional Impairments (Reported) Functional Limitations- ADL's Have difficulty putting socks/ shoes on. Losses balance a little, can't stand independently to put pants on, needs to lean against wall. Functional Limitations- Mobility/Gait Bending over 5-10 minutes to give dogs a bath causes a lot of back pain. Functional Limitations- Other Not able to lift her 70# dog. Personal Factors Other Personal Factors That May Effect Lives alone, arthritis Therapy/Recovery PT-OP-C Subjective Start: 12/03/22 19:44 Freq: Status: Active Protocol: Document 12/10/22 09:53 LRN (Rec: 12/10/22 11:27 LRN [id number]) Patient Questionnaires Oswestry Low Back Index Oswestry Score 9 Oswestry Impairment 1 to 19% Impaired (Score 1-19) OP-PT Pain Assessment Pain Assessment Grid Paper Pain Assessment Grid Completed Yes Location R lateral hip Pain Location Details R lateral hip Intensity 7 Scale Used Numeric (0 - 10) Description- Other Constant pain is 2/10, intermittent 7-8/10 Frequency Intermittent Low Back Pain Location Details Across LB Intensity 3 Scale Used Numeric (0 - 10) Frequency Constant Comments Pain Comments Likes to sleep on R side. PT-OP-G Mobility & Gait Start: 12/03/22 19:44 Freq: Status: Active Protocol: Document 12/10/22 09:53 LRN (Rec: 12/10/22 11:27 LRN [id number]) OP Gait Assessment Gait Gait Assistance Required: Independent Able to Maintain Weight Bearing Status Yes During Gait Assistive Devices Assistive Device None Gait Deviations General Gait Pattern Lateral Trunk Lean,Wide Based Gait Comments Gait Comments No pain with gait. Factors limiting gait: Stiffness of extremities, and reported decreased balance. Stair Climbing Evaluation Comments Stair Climbing Comments No pain with stair ambulation. PT-OP-H Neuro Start: 12/03/22 19:44 Freq: Status: Active Protocol: Document 12/10/22 09:53 LRN (Rec: 12/10/22 11:27 LRN [id number]) Sensation Evaluation Gross Sensation Sensation Description Numbness,Tingling Comments Summary Comments L middle toe numb for a few years. R middle toe is starting to go numb. Tingling and pain is intermittent, numbness constant. Deep Tendon Reflex & Clonus Assessment Deep Tendon Reflex Right Achilles Deep Tendon Reflex 1+ Diminished Left Achilles Deep Tendon Reflex 0 Absent Bilateral Patellar Deep Tendon Reflex 1+ Diminished PT-OP-J Posture/Palpation/Skin Start: 12/03/22 19:44 Freq: Status: Active Protocol: Document 12/10/22 09:53 LRN (Rec: 12/10/22 11:27 LRN [id number]) Posture Evaluation Position Standing Head/C-Spine Posture Side Bent Left,Forward Head L-Spine Posture Increased Lordosis Shoulder Posture (R) Elevated Arm Posture (L) Internally Rotated,(R) Internally Rotated Weight Distribution Balanced Comments Posture Comments Sway back, S-curve of spine: R upper apex on R ~T5, lower apex on L ~L2. Palpation Assessment Location Sacrum Palpation Location R rotated Low back Palpation Location Pain at spinous process L4, L5 Palpation Findings Tenderness PT-OP-K Range of Motion Start: 12/03/22 19:44 Freq: Status: Active Protocol: Document 12/10/22 09:53 LRN (Rec: 12/10/22 11:27 LRN [id number]) Lumbar Spine Range of Motion Lumbar Spine Active Degrees Testing Position Standing Flexion 52 Extension 11 Rotation Left 20 Rotation Right 10 Lateral Flexion Left 5 Lateral Flexion Right 0 ROM Limitations Soft Tissue Tightness,Pain Comments Trunk Flexion is 52 deg?s with 45 deg?s hip flexion, Trunk extension is 11 deg?s with 11 deg?s hip extension. Hip Goniometric Range of Motion Hip Right Passive Testing Position Supine Straight Leg Raise 80 Internal Rotation 25 External Rotation 75 Left Passive Testing Position Supine Straight Leg Raise 70 Internal Rotation 15 External Rotation 60 PT-OP-L Special Tests Start: 12/03/22 19:44 Freq: Status: Active Protocol: Document 12/10/22 09:53 LRN (Rec: 12/10/22 11:27 LRN [id number]) Special Tests Lumbar Spine Special Tests Manual Traction Test Results + Comments Relieves LBP Slump Test Results + Comments neural tension Vertical Spine Loading Test Results - Comments Caused trunk ext PT-OP-M Strength Start: 12/03/22 19:44 Freq: Status: Active Protocol: Document 12/10/22 09:53 LRN (Rec: 12/10/22 11:27 LRN [id number]) Trunk Strength Trunk Manual Muscle Testing Core Stabilization Cores nurse transition Ore Crusher/Pinch Strength Hand Dominance Hand Dominance Right Hip Strength Hip Manual Muscle Testing Right Flexion (L2) 5 Normal Abduction 5 Normal Adduction 2+ Poor+ External Rotation 5 Normal Internal Rotation 5 Normal Left Flexion (L2) 5 Normal Extension (S1) 5 Normal Abduction 5 Normal Adduction 2+ Poor+ External Rotation 5 Normal Internal Rotation 5 Normal PT-OP-Q Treatments Start: 12/03/22 19:44 Freq: Status: Active Protocol: Document 12/10/22 09:53 LRN (Rec: 12/10/22 11:27 LRN [id number]) Self-Care/Home Management Treatment Education Other Education Discussed results of evaluation, goals, and plan of care (POC). Pt agreeable to goals and POC. PT-OP-T Assessment and Plan Start: 12/03/22 19:44 Freq: Status: Active Protocol: Document 12/10/22 09:53 LRN (Rec: 12/10/22 11:27 LRN [id number]) Physical Therapy Assessment Rehab Potential Rehabilitation Potential Good Evaluation Complexity Number of Personal Factors/Comorbidities 1-2 Impairments Impairments Activity Tolerance,Balance, Functional Activities, Functional Mobility,Gait,Pain, Posture,ROM,Sensation Other Impairments Stiffness Other Concerns Barriers to Rehabilitation Chronicity of back pain (8-9 yrs). Goals Three Impairment Decreased function due to pain . Transportation Manager Goal (LTG) Pt will be able to bend over to give dogs a bath, with positional modifications as needed to perform the activity with a tolerable pain level ( 15 minutes or greater). LTG Duration 03/12/23 Two Impairment Decreased Mobility. Impairment Hip mobility (in deg's): IR is 25 R, 15 L; ER is 75 R, 60 L, SLR is 80 R, 70 L. Trunk mobility (in deg's): Flex 52 (45 hip flex), Ext 11 (11 hip ext), Rot is 10 R, 20 L; SB is 0 R, 5 L. Short Term Goal (STG) Improve hip/trunk mobility with the pt able to move with greater ease in the moring. STG Duration 01/22/23 Transportation Manager Goal (LTG) Improve hip/trunk mobility with the pt able to put on her socks without difficulty. LTG Duration 03/12/23 One Impairment Pt lacks appropriate self care HEP. Short Term Goal (STG) Pt will be educated in log roll transfers, proper sitting & standing posture, proper resting posture, and proper body mechanics for ADLs. STG Duration 12/25/22 Custodial Goal (LTG) Pt will be independent in an effective self care HEP for mobility ex's, and as needed, balance and strengthening exercises. LTG Duration 03/12/23 Assessment Summary Assessment Pt is a 67 yo female who present with LBP/R hip pain that shows signs of L/S neural involvement with + slump test and relief of LBP with manual lumbar traction. She shows bilateral diminished patellar and R achilles DTR reflex and absent L achilles DTR. Posturally show shows S-curve of the spine with upper apex ~ T5 and lower apex ~L2 The pt also demonstrates reduced trunk and hip mobility due to LBP rather than tight muscles limiting her functional mobility possibly exacerbating her neurological symptoms. Stiffness may be due to prolonged pt self limitation of mobility due to pain. The pt will benefit from skilled physical therapy for education on self care of posture, body mechanics and self care pain management, and to decrease pain, improve trunk and hip mobility improve hip strength. Physical Therapy Plan Frequency and Duration Frequency of Treatment 2x/Week Plan of Care Start Date 12/10/22 Plan of Care End Date 03/12/23 Therapeutic Interventions Therapeutic Interventions Home Exercise Program,Joint Mobilizations,Manual Therapy, Neuromuscular Re-education, Patient/Caregiver Education, Self-Care/Home Management,Soft Tissue Mobilization, Therapeutic Activities, Therapeutic Exercises Modalities Cold Pack/Ice Massage,Electric Stimulation,Hot Packs, Ultrasound Next Visit Focus/Plan Next Note Type Treatment Note Next Visit Plan Assess standing balance and stair ambulation safety. Recheck Hip AD strength. Further assess soft tissue of lumbosacral region and for SIJ dysfunction. Check: Braulio Test. Exer/HEP: L>R Piriformis stretch (L>R for a couple weeks fig 4), R trunk rot/R SB - scoliosis ex program, try L /S Yudith ext vs Ramses flex ex's for LBP (caution: scoliosis). Pt education: Proper sitting & standing posture, proper resting posture, Proper body mechanics for ADLs. Manual: STM back, hips as needed for pain, stretch to back/hips. Sacral mob. Modalities: MH/IFES to full back or mid>LB.
--- NOTE | 2022-12-24 12:13 | PT.OTN ---
Current Diagnoses Other intervertebral disc degeneration, lumbosacral region (12/24/22) Lumbago with sciatica, unspecified side (12/24/22) Unsteadiness on feet (12/24/22) Physical Therapy Treatment Note PT-OP-A Visit Information Start: 12/03/22 19:44 Freq: Status: Active Protocol: Document 12/24/22 11:21 LRN (Rec: 12/24/22 12:12 LRN [id number]) Out-Patient Physical Therapy Visit Information Visit Information Visit Type Treatment Note Visit Start Time 11:21 Visit Stop Time 12:01 Total Visit Minutes 40 Visit Number 2 Evaluation Information Evaluation Date 12/10/22 Precautions Precautions L thumb joint replacement, arthritis, chronic history of back pain. PT-OP-B Current Condition Start: 12/03/22 19:44 Freq: Status: Active Protocol: Document 12/10/22 09:53 LRN (Rec: 12/10/22 11:27 LRN [id number]) Current Condition History of Current Condition Onset Date 8-9 yrs ago Current Complaints Back pain/stiffness especially bending over for any length of time. History of Current Condition Back pain started due degenerative arthritis onset 8 -9 yrs ago. Had therapy for not being able to roll in bed and get dressed in the morning , but managed with medication started 1 yr ago. Now left with stiffness in the back and pain if bent over for any length of time ~5-10 minutes. Pt in physical therapy at MD recommendation. She reports problem with balalnce and has trouble getting her foot up to put socks on. When showering uses bench to put feet up to wash feet, otherwise wouldn't be able to bend over to perform that. If bent over too long, the back becomes unbearably painful, requiring repositioning to get the pain to stop (ex-stand up, twist). She states bending over to pick things up off the ground is uncomfortable. Prior Treatments and Tests Physical Therapy x 2, for stiffness 9 yrs and 5 yrs ago, not successful. Pt reports no longer having home exercises. Developmental History Developmental History 1 yr ago doctor put her on amitriptyline because she couldn't roll in bed and was then able to move better. Treatment Goals Patient/Caregiver Goals Pt goals: able to move in the morning, get stretches to improve mobility, and be able to bend over to give dogs a bath. 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 Current Functional Impairments (Reported) Functional Limitations- ADL's Have difficulty putting socks/ shoes on. Losses balance a little, can't stand independently to put pants on, needs to lean against wall. Functional Limitations- Mobility/Gait Bending over 5-10 minutes to give dogs a bath causes a lot of back pain. Functional Limitations- Other Not able to lift her 70# dog. Personal Factors Other Personal Factors That May Effect Lives alone, arthritis Therapy/Recovery PT-OP-C Subjective Start: 12/03/22 19:44 Freq: Status: Active Protocol: Document 12/24/22 11:21 LRN (Rec: 12/24/22 12:12 LRN [id number]) OP-PT Subjective Patient Comments Patient Comments Requests handouts for exercises. PT-OP-G Mobility & Gait Start: 12/03/22 19:44 Freq: Status: Active Protocol: Document 12/10/22 09:53 LRN (Rec: 12/10/22 11:27 LRN [id number]) OP Gait Assessment Gait Gait Assistance Required: Independent Able to Maintain Weight Bearing Status Yes During Gait Assistive Devices Assistive Device None Gait Deviations General Gait Pattern Lateral Trunk Lean,Wide Based Gait Comments Gait Comments No pain with gait. Factors limiting gait: Stiffness of extremities, and reported decreased balance. Stair Climbing Evaluation Comments Stair Climbing Comments No pain with stair ambulation. PT-OP-H Neuro Start: 12/03/22 19:44 Freq: Status: Active Protocol: Document 12/10/22 09:53 LRN (Rec: 12/10/22 11:27 LRN [id number]) Sensation Evaluation Gross Sensation Sensation Description Numbness,Tingling Comments Summary Comments L middle toe numb for a few years. R middle toe is starting to go numb. Tingling and pain is intermittent, numbness constant. Deep Tendon Reflex & Clonus Assessment Deep Tendon Reflex Right Achilles Deep Tendon Reflex 1+ Diminished Left Achilles Deep Tendon Reflex 0 Absent Bilateral Patellar Deep Tendon Reflex 1+ Diminished PT-OP-J Posture/Palpation/Skin Start: 12/03/22 19:44 Freq: Status: Active Protocol: Document 12/10/22 09:53 LRN (Rec: 12/10/22 11:27 LRN [id number]) Posture Evaluation Position Standing Head/C-Spine Posture Side Bent Left,Forward Head L-Spine Posture Increased Lordosis Shoulder Posture (R) Elevated Arm Posture (L) Internally Rotated,(R) Internally Rotated Weight Distribution Balanced Comments Posture Comments Sway back, S-curve of spine: R upper apex on R ~T5, lower apex on L ~L2. Palpation Assessment Location Sacrum Palpation Location R rotated Low back Palpation Location Pain at spinous process L4, L5 Palpation Findings Tenderness PT-OP-K Range of Motion Start: 12/03/22 19:44 Freq: Status: Active Protocol: Document 12/10/22 09:53 LRN (Rec: 12/10/22 11:27 LRN [id number]) Lumbar Spine Range of Motion Lumbar Spine Active Degrees Testing Position Standing Flexion 52 Extension 11 Rotation Left 20 Rotation Right 10 Lateral Flexion Left 5 Lateral Flexion Right 0 ROM Limitations Soft Tissue Tightness,Pain Comments Trunk Flexion is 52 deg?s with 45 deg?s hip flexion, Trunk extension is 11 deg?s with 11 deg?s hip extension. Hip Goniometric Range of Motion Hip Right Passive Testing Position Supine Straight Leg Raise 80 Internal Rotation 25 External Rotation 75 Left Passive Testing Position Supine Straight Leg Raise 70 Internal Rotation 15 External Rotation 60 PT-OP-L Special Tests Start: 12/03/22 19:44 Freq: Status: Active Protocol: Document 12/10/22 09:53 LRN (Rec: 12/10/22 11:27 LRN [id number]) Special Tests Lumbar Spine Special Tests Manual Traction Test Results + Comments Relieves LBP Slump Test Results + Comments neural tension Vertical Spine Loading Test Results - Comments Caused trunk ext PT-OP-M Strength Start: 12/03/22 19:44 Freq: Status: Active Protocol: Document 12/24/22 11:21 LRN (Rec: 12/24/22 12:12 LRN [id number]) Hip Strength Hip Manual Muscle Testing Right Flexion (L2) 5 Normal Extension (S1) 3- Fair- Abduction 5 Normal Adduction 5 Normal External Rotation 5 Normal Internal Rotation 5 Normal Left Flexion (L2) 5 Normal Extension (S1) 5 Normal Abduction 5 Normal Adduction 5 Normal External Rotation 5 Normal Internal Rotation 5 Normal PT-OP-Q Treatments Start: 12/03/22 19:44 Freq: Status: Active Protocol: Document 12/24/22 11:21 LRN (Rec: 12/24/22 12:12 LRN [id number]) Therapeutic Exercises Prone Exercises R Lateral Hip Side right Reps/Minutes 60 secs R Piriformis Side right Reps/Minutes 60 secs TA tightening Prone Exercise Name Supine TA tightening Reps/Minutes 10 SH x 6 TA w/transfers Prone Exercise Name TA/Transfer prone<>supine Comments Cuing for TA tight position of PPT TA/leg ext Side bilateral Reps/Minutes 10x Comments Extra time to determine max ran position w/o pain = TA tight Sidelying Exercises Hip AD Sidelying Exercise Name AD leg lifts Side bilateral Reps/Minutes 10x Neuro Re-Education Treatment Balance Activities R SLS Surface Firm Equipment Plinth elevated for pt hgt of counter top, hands hovering Reps/Duration 5x attempt. Comments SLS L 54 secs, R 2 secs. Self-Care/Home Management Treatment Education Patient Education Home Exercise Program Activities Self-Care/Home Management Activities Issued & reviewed HEP: TA tightening, Stretches: Piriformis, Lateral hip, Iliopsoas. I/S pt to review Iliopoas stretch for ex next visit. PT-OP-T Assessment and Plan Start: 12/03/22 19:44 Freq: Status: Active Protocol: Document 12/24/22 11:21 LRN (Rec: 12/24/22 12:12 LRN [id number]) Physical Therapy Assessment Goals Three Impairment Decreased function due to pain . Prison Goal (LTG) Pt will be able to bend over to give dogs a bath, with positional modifications as needed to perform the activity with a tolerable pain level ( 15 minutes or greater). LTG Duration 03/12/23 Two Impairment Decreased Mobility. Impairment Hip mobility (in deg's): IR is 25 R, 15 L; ER is 75 R, 60 L, SLR is 80 R, 70 L. Trunk mobility (in deg's): Flex 52 (45 hip flex), Ext 11 (11 hip ext), Rot is 10 R, 20 L; SB is 0 R, 5 L. Short Term Goal (STG) Improve hip/trunk mobility with the pt able to move with greater ease in the moring. STG Duration 01/22/23 Filling Machine Operator Goal (LTG) Improve hip/trunk mobility with the pt able to put on her socks without difficulty. LTG Duration 03/12/23 One Impairment Pt lacks appropriate self care HEP. Short Term Goal (STG) Pt will be educated in log roll transfers, proper sitting & standing posture, proper resting posture, and proper body mechanics for ADLs. STG Duration 12/25/22 Filling Machine Operator Goal (LTG) Pt will be independent in an effective self care HEP for mobility ex's, and as needed, balance and strengthening exercises. 12/24/22: HEP: TA tightening, Stretches: Piriformis, Lateral hip, Iliopsoas. I/S pt to review Iliopoas stretch for ex next visit and SLS - hands hovering. LTG Duration 03/12/23 Progress Towards Goals Progress Comments Progressed HEP Assessment Summary Assessment Pt with LBP/R hip pain that shows signs of L/S neural involvement with + slump test and relief of LBP with manual lumbar traction. No palpable LB/R hip pain in relaxed prone position; therefore pain appears to be LB neural with R hip tightness. She has good hip strength w/o pain if she keeps TA tight, but with transfer/movement she has pain although better controlled with core stabilized. Physical Therapy Plan Frequency and Duration Frequency of Treatment 2x/Week Plan of Care Start Date 12/10/22 Plan of Care End Date 03/12/23 Next Visit Focus/Plan Next Note Type Treatment Note Next Visit Plan Assess stair ambulation safety and recheck SLS. Further assess for SIJ dysfunction. Check:Braulio Test. Review Exer/HEP for: L>R Piriformis stretch. Educate in log roll transfers, proper sitting & standing posture, proper resting posture, and proper body mechanics for ADLs. Reassess for hip ER (?L>R for a couple weeks fig 4), R trunk rot/R SB - scoliosis ex program, try L/S Yudith ext vs Ramses flex ex's for LBP ( caution: scoliosis). Pt education: Proper sitting & standing posture, proper resting posture, Proper body mechanics for ADLs. Manual: STM back, hips as needed for pain, stretch to back/hips. Sacral mob. Modalities: MH/IFES to full back or mid>LB.
--- NOTE | 2022-12-31 17:57 | PT.OTN ---
Current Diagnoses Other intervertebral disc degeneration, lumbosacral region (12/31/22) Lumbago with sciatica, unspecified side (12/31/22) Unsteadiness on feet (12/31/22) Physical Therapy Treatment Note PT-OP-A Visit Information Start: 12/03/22 19:44 Freq: Status: Active Protocol: Document 12/31/22 08:52 LRN (Rec: 12/31/22 09:35 LRN [id number]) Out-Patient Physical Therapy Visit Information Visit Information Visit Type Treatment Note Visit Start Time 08:52 Visit Stop Time 09:30 Total Visit Minutes 38 Visit Number 3 Evaluation Information Evaluation Date 12/10/22 Precautions Precautions L thumb joint replacement, arthritis, chronic history of back pain. PT-OP-B Current Condition Start: 12/03/22 19:44 Freq: Status: Active Protocol: Document 12/10/22 09:53 LRN (Rec: 12/10/22 11:27 LRN [id number]) Current Condition History of Current Condition Onset Date 8-9 yrs ago Current Complaints Back pain/stiffness especially bending over for any length of time. History of Current Condition Back pain started due degenerative arthritis onset 8 -9 yrs ago. Had therapy for not being able to roll in bed and get dressed in the morning , but managed with medication started 1 yr ago. Now left with stiffness in the back and pain if bent over for any length of time ~5-10 minutes. Pt in physical therapy at MD recommendation. She reports problem with balalnce and has trouble getting her foot up to put socks on. When showering uses bench to put feet up to wash feet, otherwise wouldn't be able to bend over to perform that. If bent over too long, the back becomes unbearably painful, requiring repositioning to get the pain to stop (ex-stand up, twist). She states bending over to pick things up off the ground is uncomfortable. Prior Treatments and Tests Physical Therapy x 2, for stiffness 9 yrs and 5 yrs ago, not successful. Pt reports no longer having home exercises. Developmental History Developmental History 1 yr ago doctor put her on amitriptyline because she couldn't roll in bed and was then able to move better. Treatment Goals Patient/Caregiver Goals Pt goals: able to move in the morning, get stretches to improve mobility, and be able to bend over to give dogs a bath. Prior Functional Status Baseline Function- ADL's Independent Baseline Function- Mobility Independent Baseline Function- Work/School Retired from [employer] in 2020. 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 Current Functional Impairments (Reported) Functional Limitations- ADL's Have difficulty putting socks/ shoes on. Losses balance a little, can't stand independently to put pants on, needs to lean against wall. Functional Limitations- Mobility/Gait Bending over 5-10 minutes to give dogs a bath causes a lot of back pain. Functional Limitations- Other Not able to lift her 70# dog. Personal Factors Other Personal Factors That May Effect Lives alone, arthritis Therapy/Recovery PT-OP-C Subjective Start: 12/03/22 19:44 Freq: Status: Active Protocol: Document 12/31/22 08:52 LRN (Rec: 12/31/22 09:35 LRN [id number]) OP-PT Subjective Patient Comments Patient Comments States she has been doing yard work. Had to take Advil last night. PT-OP-G Mobility & Gait Start: 12/03/22 19:44 Freq: Status: Active Protocol: Document 12/10/22 09:53 LRN (Rec: 12/10/22 11:27 LRN [id number]) OP Gait Assessment Gait Gait Assistance Required: Independent Able to Maintain Weight Bearing Status Yes During Gait Assistive Devices Assistive Device None Gait Deviations General Gait Pattern Lateral Trunk Lean,Wide Based Gait Comments Gait Comments No pain with gait. Factors limiting gait: Stiffness of extremities, and reported decreased balance. Stair Climbing Evaluation Comments Stair Climbing Comments No pain with stair ambulation. PT-OP-H Neuro Start: 12/03/22 19:44 Freq: Status: Active Protocol: Document 12/10/22 09:53 LRN (Rec: 12/10/22 11:27 LRN [id number]) Sensation Evaluation Gross Sensation Sensation Description Numbness,Tingling Comments Summary Comments L middle toe numb for a few years. R middle toe is starting to go numb. Tingling and pain is intermittent, numbness constant. Deep Tendon Reflex & Clonus Assessment Deep Tendon Reflex Right Achilles Deep Tendon Reflex 1+ Diminished Left Achilles Deep Tendon Reflex 0 Absent Bilateral Patellar Deep Tendon Reflex 1+ Diminished PT-OP-J Posture/Palpation/Skin Start: 12/03/22 19:44 Freq: Status: Active Protocol: Document 12/10/22 09:53 LRN (Rec: 12/10/22 11:27 LRN [id number]) Posture Evaluation Position Standing Head/C-Spine Posture Side Bent Left,Forward Head L-Spine Posture Increased Lordosis Shoulder Posture (R) Elevated Arm Posture (L) Internally Rotated,(R) Internally Rotated Weight Distribution Balanced Comments Posture Comments Sway back, S-curve of spine: R upper apex on R ~T5, lower apex on L ~L2. Palpation Assessment Location Sacrum Palpation Location R rotated Low back Palpation Location Pain at spinous process L4, L5 Palpation Findings Tenderness PT-OP-K Range of Motion Start: 12/03/22 19:44 Freq: Status: Active Protocol: Document 12/31/22 08:52 LRN (Rec: 12/31/22 09:35 LRN [id number]) Hip Goniometric Range of Motion Hip Right Passive Testing Position Supine Straight Leg Raise 30 Left Passive Testing Position Supine Straight Leg Raise 30 PT-OP-L Special Tests Start: 12/03/22 19:44 Freq: Status: Active Protocol: Document 12/31/22 08:52 LRN (Rec: 12/31/22 17:56 LRN [id number]) Special Tests Lumbar Spine Special Tests Braulio Test Results - bilaterally PT-OP-M Strength Start: 12/03/22 19:44 Freq: Status: Active Protocol: Document 12/24/22 11:21 LRN (Rec: 12/24/22 12:12 LRN [id number]) Hip Strength Hip Manual Muscle Testing Right Flexion (L2) 5 Normal Extension (S1) 3- Fair- Abduction 5 Normal Adduction 5 Normal External Rotation 5 Normal Internal Rotation 5 Normal Left Flexion (L2) 5 Normal Extension (S1) 5 Normal Abduction 5 Normal Adduction 5 Normal External Rotation 5 Normal Internal Rotation 5 Normal PT-OP-Q Treatments Start: 12/03/22 19:44 Freq: Status: Active Protocol: Document 12/31/22 08:52 LRN (Rec: 12/31/22 09:35 LRN [id number]) Therapeutic Exercises Supine Exercises Fig 4 stretch Supine Exercise Name Fig 4 stretch Side bilateral Reps/Minutes 10SH through ankle AROM, deep breaths, active hip ER x 10 each Comments Extra time needed to determine best position and max tolerated stretch Piriformis stretch Supine Exercise Name Piriformis stretch Side bilateral Reps/Minutes 10SH through ankle AROM, deep breaths, TA tightening x 10 each Comments Extra time needed to determine best position and max tolerated stretch Hamstring/LE neural stretch Supine Exercise Name Hamstring/LE neural stretch Side bilateral Reps/Minutes 10SH f/b ankle stretch x3 sets Comments Extra time taken to determine max ran stretch & for education. Sitting Exercises Hip IR Sitting Exercise Name Ankle over knee, leaning forward or knee to opp shoulder stretch Side bilateral Reps/Minutes 60 SH Comments Extra time needed to determine best position and max tolerated stretch Hip ER Sitting Exercise Name Ankle over knee stretch Side bilateral Reps/Minutes 10 SH through ankle AROM, deep breaths, active hip ER x 10 each Comments 60 SH Therapeutic Activity Therapeutic Activity Transfer training Name Sit<>supine, sit<>stand Reps/Minutes 6' Comments Extra time taken for training Stair ambulatioin Name Stair ambulation training for posture/core stab Reps/Minutes 5' Comments Extra time taken for training Self-Care/Home Management Treatment Education Patient Education Home Exercise Program Other Education Pt education in spine and effect on posturing. Activities Self-Care/Home Management Activities Issued & reviewed HEP: Stretches: Piriformis supine & sitting, fig 4, and hamstring/Sciatic n glide. PT-OP-T Assessment and Plan Start: 12/03/22 19:44 Freq: Status: Active Protocol: Document 12/31/22 08:52 LRN (Rec: 12/31/22 09:35 LRN [id number]) Physical Therapy Assessment Goals Three Impairment Decreased function due to pain . Fpc Goal (LTG) Pt will be able to bend over to give dogs a bath, with positional modifications as needed to perform the activity with a tolerable pain level ( 15 minutes or greater). LTG Duration 03/12/23 Two Impairment Decreased Mobility. Impairment Hip mobility (in deg's): IR is 25 R, 15 L; ER is 75 R, 60 L, SLR is 80 R, 70 L. Trunk mobility (in deg's): Flex 52 (45 hip flex), Ext 11 (11 hip ext), Rot is 10 R, 20 L; SB is 0 R, 5 L. Short Term Goal (STG) Improve hip/trunk mobility with the pt able to move with greater ease in the moring. STG Duration 01/22/23 Fpc Goal (LTG) Improve hip/trunk mobility with the pt able to put on her socks without difficulty. LTG Duration 03/12/23 One Impairment Pt lacks appropriate self care HEP. Short Term Goal (STG) Pt will be educated in log roll transfers, proper sitting & standing posture, proper resting posture, and proper body mechanics for ADLs. 12/31/22: Pt educated in log roll transfer technique sit<> supine. STG Duration 12/25/22 progressed transfer trng 12/31/22 Fpc Goal (LTG) Pt will be independent in an effective self care HEP for mobility ex's, and as needed, balance and strengthening exercises. 12/24/22: HEP: TA tightening, Stretches: Piriformis, Lateral hip, Iliopsoas. I/S pt to review Iliopoas stretch for ex next visit and SLS - hands hovering. 12/31/22: HEP: Piriformis sup & sitting, Fig 4 stretch, and LE hamstring/neural stretch. LTG Duration 03/12/23 progressed 12/31/22 Progress Towards Goals Progress Comments Progressed HEP. Educated in log roll transfer sit<>supine. Assessment Summary Assessment Pt with LBP/R hip pain that shows signs of L/S neural involvement with + slump test and relief of LBP with manual lumbar traction. She appeared to be able to tolerate hip stretches without lingering discomfort, but may need further education on maxt tolerated stretching. - Braulio Test. Physical Therapy Plan Frequency and Duration Frequency of Treatment 2x/Week Plan of Care Start Date 12/10/22 Plan of Care End Date 03/12/23 Next Visit Focus/Plan Next Note Type Treatment Note Next Visit Plan Assess stair ambulation safety and recheck SLS. Further assess for SIJ dysfunction. . Assess pt adherence to log roll transfers, Pt education: Proper sitting & standing posture, proper resting posture, Proper body mechanics for ADLs. Reassess for hip ER (?L>R for a couple weeks fig 4), R trunk rot/R SB - scoliosis ex program, try L/S Yudith ext vs Ramses flex ex's for LBP ( caution: scoliosis). Manual: STM back, hips as needed for pain, stretch to back/hips. Sacral mob. Modalities: MH/IFES to full back or mid>LB.
--- NOTE | 2023-01-08 09:45 | PT.OTN ---
Current Diagnoses Other intervertebral disc degeneration, lumbosacral region (01/08/23) Lumbago with sciatica, unspecified side (01/08/23) Unsteadiness on feet (01/08/23) Physical Therapy Treatment Note PT-OP-A Visit Information Start: 12/03/22 19:44 Freq: Status: Active Protocol: Document 01/08/23 09:05 SP (Rec: 01/08/23 09:48 SP [id number]) Out-Patient Physical Therapy Visit Information Visit Information Visit Type Treatment Note Visit Start Time 09:05 Visit Stop Time 09:45 Total Visit Minutes 40 Visit Number 4 Number of HOME DEPOT REP Visits 1 Evaluation Information Evaluation Date 12/10/22 Precautions Precautions L thumb joint replacement, arthritis, chronic history of back pain. PT-OP-B Current Condition Start: 12/03/22 19:44 Freq: Status: Active Protocol: Document 12/10/22 09:53 LRN (Rec: 12/10/22 11:27 LRN [id number]) Current Condition History of Current Condition Onset Date 8-9 yrs ago Current Complaints Back pain/stiffness especially bending over for any length of time. History of Current Condition Back pain started due degenerative arthritis onset 8 -9 yrs ago. Had therapy for not being able to roll in bed and get dressed in the morning , but managed with medication started 1 yr ago. Now left with stiffness in the back and pain if bent over for any length of time ~5-10 minutes. Pt in physical therapy at MD recommendation. She reports problem with balalnce and has trouble getting her foot up to put socks on. When showering uses bench to put feet up to wash feet, otherwise wouldn't be able to bend over to perform that. If bent over too long, the back becomes unbearably painful, requiring repositioning to get the pain to stop (ex-stand up, twist). She states bending over to pick things up off the ground is uncomfortable. Prior Treatments and Tests Physical Therapy x 2, for stiffness 9 yrs and 5 yrs ago, not successful. Pt reports no longer having home exercises. Developmental History Developmental History 1 yr ago doctor put her on amitriptyline because she couldn't roll in bed and was then able to move better. Treatment Goals Patient/Caregiver Goals Pt goals: able to move in the morning, get stretches to improve mobility, and be able to bend over to give dogs a bath. 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 Current Functional Impairments (Reported) Functional Limitations- ADL's Have difficulty putting socks/ shoes on. Losses balance a little, can't stand independently to put pants on, needs to lean against wall. Functional Limitations- Mobility/Gait Bending over 5-10 minutes to give dogs a bath causes a lot of back pain. Functional Limitations- Other Not able to lift her 70# dog. Personal Factors Other Personal Factors That May Effect Lives alone, arthritis Therapy/Recovery PT-OP-C Subjective Start: 12/03/22 19:44 Freq: Status: Active Protocol: Document 01/08/23 09:05 SP (Rec: 01/08/23 09:48 SP [id number]) OP-PT Subjective Patient Comments Patient Comments Pt reports she has been eating alot Tylenol lately due to involved in yard work like pulling out blackberry bushes, planting. PT-OP-G Mobility & Gait Start: 12/03/22 19:44 Freq: Status: Active Protocol: Document 12/10/22 09:53 LRN (Rec: 12/10/22 11:27 LRN [id number]) OP Gait Assessment Gait Gait Assistance Required: Independent Able to Maintain Weight Bearing Status Yes During Gait Assistive Devices Assistive Device None Gait Deviations General Gait Pattern Lateral Trunk Lean,Wide Based Gait Comments Gait Comments No pain with gait. Factors limiting gait: Stiffness of extremities, and reported decreased balance. Stair Climbing Evaluation Comments Stair Climbing Comments No pain with stair ambulation. PT-OP-H Neuro Start: 12/03/22 19:44 Freq: Status: Active Protocol: Document 12/10/22 09:53 LRN (Rec: 12/10/22 11:27 LRN [id number]) Sensation Evaluation Gross Sensation Sensation Description Numbness,Tingling Comments Summary Comments L middle toe numb for a few years. R middle toe is starting to go numb. Tingling and pain is intermittent, numbness constant. Deep Tendon Reflex & Clonus Assessment Deep Tendon Reflex Right Achilles Deep Tendon Reflex 1+ Diminished Left Achilles Deep Tendon Reflex 0 Absent Bilateral Patellar Deep Tendon Reflex 1+ Diminished PT-OP-J Posture/Palpation/Skin Start: 12/03/22 19:44 Freq: Status: Active Protocol: Document 12/10/22 09:53 LRN (Rec: 12/10/22 11:27 LRN [id number]) Posture Evaluation Position Standing Head/C-Spine Posture Side Bent Left,Forward Head L-Spine Posture Increased Lordosis Shoulder Posture (R) Elevated Arm Posture (L) Internally Rotated,(R) Internally Rotated Weight Distribution Balanced Comments Posture Comments Sway back, S-curve of spine: R upper apex on R ~T5, lower apex on L ~L2. Palpation Assessment Location Sacrum Palpation Location R rotated Low back Palpation Location Pain at spinous process L4, L5 Palpation Findings Tenderness PT-OP-K Range of Motion Start: 12/03/22 19:44 Freq: Status: Active Protocol: Document 12/31/22 08:52 LRN (Rec: 12/31/22 09:35 LRN [id number]) Hip Goniometric Range of Motion Hip Right Passive Testing Position Supine Straight Leg Raise 30 Left Passive Testing Position Supine Straight Leg Raise 30 PT-OP-L Special Tests Start: 12/03/22 19:44 Freq: Status: Active Protocol: Document 12/31/22 08:52 LRN (Rec: 12/31/22 17:56 LRN [id number]) Special Tests Lumbar Spine Special Tests Braulio Test Results - bilaterally PT-OP-M Strength Start: 12/03/22 19:44 Freq: Status: Active Protocol: Document 12/24/22 11:21 LRN (Rec: 12/24/22 12:12 LRN [id number]) Hip Strength Hip Manual Muscle Testing Right Flexion (L2) 5 Normal Extension (S1) 3- Fair- Abduction 5 Normal Adduction 5 Normal External Rotation 5 Normal Internal Rotation 5 Normal Left Flexion (L2) 5 Normal Extension (S1) 5 Normal Abduction 5 Normal Adduction 5 Normal External Rotation 5 Normal Internal Rotation 5 Normal PT-OP-Q Treatments Start: 12/03/22 19:44 Freq: Status: Active Protocol: Document 01/08/23 09:05 SP (Rec: 01/08/23 09:48 SP [id number]) Therapeutic Exercises Supine Exercises DKTC stretch Supine Exercise Name reviewed self stretch Reps/Minutes 30SH x3 Comments good form and stretch reported -limited full KTC noted TA LTR Supine Exercise Name added to HEP Side bilateral Reps/Minutes 8 reps, arms out to side- 5 SH TA SLR Supine Exercise Name add to HEP Side bilateral Reps/Minutes 12 Comments cued TA, stable pelvis, lift up to opp knee Fig 4 stretch Supine Exercise Name Fig 4 stretch- HEPreviewed Side bilateral Equipment Used more stretch on R than L 5/12 Reps/Minutes 10SH through ankle AROM, deep breaths, active hip ER x 10 each Comments time find max stretch: ankle inside opp knee jt line Piriformis stretch Supine Exercise Name Piriformis stretch- HEP reviewed Side bilateral Equipment Used ankle over opp thigh, UEs grasp ankle & knee toward chest Reps/Minutes 10SH through ankle AROM, deep breaths, TA tightening x 10 each Comments Extra time needed to determine best position and max tolerated stretch Hamstring/LE neural stretch Supine Exercise Name Hamstring/LE neural stretch- HEP reviewed Side bilateral Reps/Minutes 10SH f/b ankle stretch x3 sets Comments Extra time taken to determine max ran stretch & for education. Standing Exercises resisted TA shoulder ext Standing Exercise Name added to HEP- good response painfree and feel TA support. Resistance Tb #2 Reps/Minutes 2x10 Comments cued slow arms pull band to side pants slow and scap retraction/posture- Self-Care/Home Management Treatment Education Patient Education Body Mechanics,Home Exercise Program,Pain Management, Posture,Safety Other Education Time spent body mechanics kneel, 1/2 knee, quadruped weeding 1 UE support and wt shift between BLEs straight back with TA awareness for no LB recruitment. DIscussed no side sitting and pulling motions, trunk facing and wt shift for spinal and back support/health. Good understanding. added TA SLR, TA LTR back stretch, standing core resisted shld ext. Good demonstration of log roll sup<>sit PT-OP-T Assessment and Plan Start: 12/03/22 19:44 Freq: Status: Active Protocol: Document 01/08/23 09:05 SP (Rec: 01/08/23 09:48 SP [id number]) Physical Therapy Assessment Goals Three Impairment Decreased function due to pain . Skilled Nursing Goal (LTG) Pt will be able to bend over to give dogs a bath, with positional modifications as needed to perform the activity with a tolerable pain level ( 15 minutes or greater). LTG Duration 03/12/23 Two Impairment Decreased Mobility. Impairment Hip mobility (in deg's): IR is 25 R, 15 L; ER is 75 R, 60 L, SLR is 80 R, 70 L. Trunk mobility (in deg's): Flex 52 (45 hip flex), Ext 11 (11 hip ext), Rot is 10 R, 20 L; SB is 0 R, 5 L. Short Term Goal (STG) Improve hip/trunk mobility with the pt able to move with greater ease in the moring. STG Duration 01/22/23 Director Of Archives Goal (LTG) Improve hip/trunk mobility with the pt able to put on her socks without difficulty. LTG Duration 03/12/23 One Impairment Pt lacks appropriate self care HEP. Short Term Goal (STG) Pt will be educated in log roll transfers, proper sitting & standing posture, proper resting posture, and proper body mechanics for ADLs. 12/31/22: Pt educated in log roll transfer technique sit<> supine. STG Duration 12/25/22 progressed transfer trng 12/31/22 Skilled Nursing Goal (LTG) Pt will be independent in an effective self care HEP for mobility ex's, and as needed, balance and strengthening exercises. 12/24/22: HEP: TA tightening, Stretches: Piriformis, Lateral hip, Iliopsoas. I/S pt to review Iliopoas stretch for ex next visit and SLS - hands hovering. 12/31/22: HEP: Piriformis sup & sitting, Fig 4 stretch, and LE hamstring/neural stretch. LTG Duration 03/12/23 progressed 12/31/22 Assessment Summary Assessment Pt good response to stretch and added TA ther ex. Cues for set up and proper form, issued HOs with good carryover verbage to follow. Pt better understanding of proper body mechanics for weeding in yard. Physical Therapy Plan Frequency and Duration Frequency of Treatment 2x/Week Plan of Care Start Date 12/10/22 Plan of Care End Date 03/12/23 Therapeutic Interventions Therapeutic Interventions Home Exercise Program,Joint Mobilizations,Manual Therapy, Neuromuscular Re-education, Patient/Caregiver Education, Self-Care/Home Management,Soft Tissue Mobilization, Therapeutic Activities, Therapeutic Exercises Modalities Cold Pack/Ice Massage,Electric Stimulation,Hot Packs, Ultrasound Next Visit Focus/Plan Next Note Type Treatment Note Next Visit Plan Assess mechanics/response weeding mechanics, added resisted shld ext/TA SLR and LTR. Assess stair ambulation safety and recheck SLS. Further assess for SIJ dysfunction. . Assess pt adherence to log roll transfers, Pt education: Proper sitting & standing posture, proper resting posture, Proper body mechanics for ADLs. Reassess for hip ER (?L>R for a couple weeks fig 4), R trunk rot/R SB - scoliosis ex program, try L/S Yudith ext vs Ramses flex ex's for LBP ( caution: scoliosis). Manual: STM back, hips as needed for pain, stretch to back/hips. Sacral mob. Modalities: MH/IFES to full back or mid>LB.
--- NOTE | 2023-01-12 09:45 | PT.OTN ---
Current Diagnoses Other intervertebral disc degeneration, lumbosacral region (01/12/23) Lumbago with sciatica, unspecified side (01/12/23) Unsteadiness on feet (01/12/23) Physical Therapy Treatment Note PT-OP-A Visit Information Start: 12/03/22 19:44 Freq: Status: Active Protocol: Document 01/12/23 09:07 SP (Rec: 01/12/23 09:52 SP [id number]) Out-Patient Physical Therapy Visit Information Visit Information Visit Type Treatment Note Visit Start Time 09:07 Visit Stop Time 09:45 Visit Number 38 Number of VISUAL DISPLAY ASSOCIATE Visits 2 Evaluation Information Evaluation Date 12/10/22 Precautions Precautions L thumb joint replacement, arthritis, chronic history of back pain. PT-OP-B Current Condition Start: 12/03/22 19:44 Freq: Status: Active Protocol: Document 12/10/22 09:53 LRN (Rec: 12/10/22 11:27 LRN [id number]) Current Condition History of Current Condition Onset Date 8-9 yrs ago Current Complaints Back pain/stiffness especially bending over for any length of time. History of Current Condition Back pain started due degenerative arthritis onset 8 -9 yrs ago. Had therapy for not being able to roll in bed and get dressed in the morning , but managed with medication started 1 yr ago. Now left with stiffness in the back and pain if bent over for any length of time ~5-10 minutes. Pt in physical therapy at MD recommendation. She reports problem with balalnce and has trouble getting her foot up to put socks on. When showering uses bench to put feet up to wash feet, otherwise wouldn't be able to bend over to perform that. If bent over too long, the back becomes unbearably painful, requiring repositioning to get the pain to stop (ex-stand up, twist). She states bending over to pick things up off the ground is uncomfortable. Prior Treatments and Tests Physical Therapy x 2, for stiffness 9 yrs and 5 yrs ago, not successful. Pt reports no longer having home exercises. Developmental History Developmental History 1 yr ago doctor put her on amitriptyline because she couldn't roll in bed and was then able to move better. Treatment Goals Patient/Caregiver Goals Pt goals: able to move in the morning, get stretches to improve mobility, and be able to bend over to give dogs a bath. Prior Functional Status Baseline Function- ADL's Independent Baseline Function- Mobility Independent Baseline Function- Work/School Retired from [employer] in 2020. 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 Current Functional Impairments (Reported) Functional Limitations- ADL's Have difficulty putting socks/ shoes on. Losses balance a little, can't stand independently to put pants on, needs to lean against wall. Functional Limitations- Mobility/Gait Bending over 5-10 minutes to give dogs a bath causes a lot of back pain. Functional Limitations- Other Not able to lift her 70# dog. Personal Factors Other Personal Factors That May Effect Lives alone, arthritis Therapy/Recovery PT-OP-C Subjective Start: 12/03/22 19:44 Freq: Status: Active Protocol: Document 01/12/23 09:07 SP (Rec: 01/12/23 09:52 SP [id number]) OP-PT Subjective Patient Comments Patient Comments Pt reports hasn't been doing exercises at home more yard work and didn't really pay attention to body mechanics like reviewed I have a pretty bad yard. PT-OP-G Mobility & Gait Start: 12/03/22 19:44 Freq: Status: Active Protocol: Document 12/10/22 09:53 LRN (Rec: 12/10/22 11:27 LRN [id number]) OP Gait Assessment Gait Gait Assistance Required: Independent Able to Maintain Weight Bearing Status Yes During Gait Assistive Devices Assistive Device None Gait Deviations General Gait Pattern Lateral Trunk Lean,Wide Based Gait Comments Gait Comments No pain with gait. Factors limiting gait: Stiffness of extremities, and reported decreased balance. Stair Climbing Evaluation Comments Stair Climbing Comments No pain with stair ambulation. PT-OP-H Neuro Start: 12/03/22 19:44 Freq: Status: Active Protocol: Document 12/10/22 09:53 LRN (Rec: 12/10/22 11:27 LRN [id number]) Sensation Evaluation Gross Sensation Sensation Description Numbness,Tingling Comments Summary Comments L middle toe numb for a few years. R middle toe is starting to go numb. Tingling and pain is intermittent, numbness constant. Deep Tendon Reflex & Clonus Assessment Deep Tendon Reflex Right Achilles Deep Tendon Reflex 1+ Diminished Left Achilles Deep Tendon Reflex 0 Absent Bilateral Patellar Deep Tendon Reflex 1+ Diminished PT-OP-J Posture/Palpation/Skin Start: 12/03/22 19:44 Freq: Status: Active Protocol: Document 12/10/22 09:53 LRN (Rec: 12/10/22 11:27 LRN [id number]) Posture Evaluation Position Standing Head/C-Spine Posture Side Bent Left,Forward Head L-Spine Posture Increased Lordosis Shoulder Posture (R) Elevated Arm Posture (L) Internally Rotated,(R) Internally Rotated Weight Distribution Balanced Comments Posture Comments Sway back, S-curve of spine: R upper apex on R ~T5, lower apex on L ~L2. Palpation Assessment Location Sacrum Palpation Location R rotated Low back Palpation Location Pain at spinous process L4, L5 Palpation Findings Tenderness PT-OP-K Range of Motion Start: 12/03/22 19:44 Freq: Status: Active Protocol: Document 12/31/22 08:52 LRN (Rec: 12/31/22 09:35 LRN [id number]) Hip Goniometric Range of Motion Hip Right Passive Testing Position Supine Straight Leg Raise 30 Left Passive Testing Position Supine Straight Leg Raise 30 PT-OP-L Special Tests Start: 12/03/22 19:44 Freq: Status: Active Protocol: Document 12/31/22 08:52 LRN (Rec: 12/31/22 17:56 LRN [id number]) Special Tests Lumbar Spine Special Tests Braulio Test Results - bilaterally PT-OP-M Strength Start: 12/03/22 19:44 Freq: Status: Active Protocol: Document 12/24/22 11:21 LRN (Rec: 12/24/22 12:12 LRN [id number]) Hip Strength Hip Manual Muscle Testing Right Flexion (L2) 5 Normal Extension (S1) 3- Fair- Abduction 5 Normal Adduction 5 Normal External Rotation 5 Normal Internal Rotation 5 Normal Left Flexion (L2) 5 Normal Extension (S1) 5 Normal Abduction 5 Normal Adduction 5 Normal External Rotation 5 Normal Internal Rotation 5 Normal PT-OP-Q Treatments Start: 12/03/22 19:44 Freq: Status: Active Protocol: Document 01/12/23 09:07 SP (Rec: 01/12/23 09:52 SP [id number]) Therapeutic Exercises Supine Exercises DKTC stretch Supine Exercise Name reviewed self stretch Reps/Minutes 30SH x3 Comments good form and stretch reported - improved ROM this tx TA SLR Supine Exercise Name added to HEP Side bilateral Reps/Minutes 2x12 Comments cued TA, stable pelvis, lift up to opp knee Fig 4 stretch Supine Exercise Name Fig 4 stretch- HEPreviewed Side bilateral Equipment Used improved ROM than L 5/16 Reps/Minutes 30SH w/ breath allow increase ER stretch Comments time find max stretch: ankle inside opp knee jt line Piriformis stretch Supine Exercise Name Piriformis stretch- HEP reviewed Side bilateral Equipment Used ankle over opp thigh, UEs grasp ankle & knee toward chest Reps/Minutes 10SH through ankle AROM, deep breaths, TA tightening x 10 each Comments Extra time needed to determine best position and max tolerated stretch Sidelying Exercises hip ABD Sidelying Exercise Name ABD leg lifts Reps/Minutes x10 Comments cued slow pacing, TA engaged- improves stability Hip AD Sidelying Exercise Name AD leg lifts Side bilateral Reps/Minutes 10x Comments cued TA slow pacing Sitting Exercises Hip IR Sitting Exercise Name Ankle over knee, leaning forward or knee to opp shoulder stretch Side bilateral Reps/Minutes 60 SH Comments improved decrease hip tension support reviewed do on regular basis Hip ER Sitting Exercise Name Ankle over knee stretch Side bilateral Reps/Minutes 60SH Comments improved decrease hip tension support reviewed do on regular basis Standing Exercises resisted TA shoulder ext Standing Exercise Name HEP reviewed: rows and extension Resistance Tb #2>#3 Reps/Minutes 2x10 Comments cued slow arms pull band to side pants slow and scap retraction/posture Manual Therapy Treatment Manual Techniques muscle energy techniques Comments R iliam posterior rotated and flared lateral, L anterior rotated. Manual: isometric L hip 90/90 ext press, R hip isometric 90/ 90 flexion Self-Care/Home Management Treatment Education Patient Education Body Mechanics,Home Exercise Program,Pain Management, Posture,Safety Other Education Ed performing supine stretching in am before get up . Discussion review of body mechanics performed in PT outside yard work: straight back/hip hinge/wt shift between BLEs with core fac to allow spinal stabilization and stretching/ TA ex for support . PT-OP-T Assessment and Plan Start: 12/03/22 19:44 Freq: Status: Active Protocol: Document 01/12/23 09:07 SP (Rec: 01/12/23 09:52 SP [id number]) Physical Therapy Assessment Goals Three Impairment Decreased function due to pain . Band Leader Goal (LTG) Pt will be able to bend over to give dogs a bath, with positional modifications as needed to perform the activity with a tolerable pain level ( 15 minutes or greater). LTG Duration 03/12/23 Two Impairment Decreased Mobility. Impairment Hip mobility (in deg's): IR is 25 R, 15 L; ER is 75 R, 60 L, SLR is 80 R, 70 L. Trunk mobility (in deg's): Flex 52 (45 hip flex), Ext 11 (11 hip ext), Rot is 10 R, 20 L; SB is 0 R, 5 L. Short Term Goal (STG) Improve hip/trunk mobility with the pt able to move with greater ease in the moring. 01/12/23: progressing: states able to get dressed without taking shower to warm up. Ed for performing supine stretching and TA SLR before get up in am for hip mobility. STG Duration 01/22/23 progressing 01/12/23: [facility] Goal (LTG) Improve hip/trunk mobility with the pt able to put on her socks without difficulty. 01/12/23: Progressing: ABle to don socks/shoes opp LE over knee. FOrgets can do this strategy to keep hip flexibility tends to put foot up on hamper to help due to SLS putting on socks off balance. Wants to complete SLS . LTG Duration 03/12/23 progressin One Impairment Pt lacks appropriate self care HEP. Short Term Goal (STG) Pt will be educated in log roll transfers, proper sitting & standing posture, proper resting posture, and proper body mechanics for ADLs. 12/31/22: Pt educated in log roll transfer technique sit<> supine. 01/02/23: progressing Continue to review posturing standing, yard work mechanics. STG Duration 12/25/22 progressed 01/12/23 [facility]cf Goal (LTG) Pt will be independent in an effective self care HEP for mobility ex's, and as needed, balance and strengthening exercises. 12/24/22: HEP: TA tightening, Stretches: Piriformis, Lateral hip, Iliopsoas. I/S pt to review Iliopoas stretch for ex next visit and SLS - hands hovering. 12/31/22: HEP: Piriformis sup & sitting, Fig 4 stretch, and LE hamstring/neural stretch. 01/12/23: TA SLR, TA abd/ add, resisted rows/ ext. Stretching need continue regular basis. LTG Duration 03/12/23 progressed 01/12/23 Assessment Summary Assessment Pt responded well to review stretching and TA supine/ standing with ed for continue regular basis to support back health with yard work and mindful of body mechanics. Better understanding but feel need more review. Physical Therapy Plan Frequency and Duration Frequency of Treatment 2x/Week Plan of Care Start Date 12/10/22 Plan of Care End Date 03/12/23 Therapeutic Interventions Therapeutic Interventions Home Exercise Program,Joint Mobilizations,Manual Therapy, Neuromuscular Re-education, Patient/Caregiver Education, Self-Care/Home Management,Soft Tissue Mobilization, Therapeutic Activities, Therapeutic Exercises Modalities Cold Pack/Ice Massage,Electric Stimulation,Hot Packs, Ultrasound Next Visit Focus/Plan Next Note Type Treatment Note Next Visit Plan Reassess weeding mechanics. Continue stretch seated. SLS donning socks/pants for self goal return to. Assess stair ambulation safety and recheck SLS. Further assess for SIJ dysfunction. . Assess pt adherence to log roll transfers, Pt education: Proper sitting & standing posture, proper resting posture, Proper body mechanics for ADLs. Reassess for hip ER (?L>R for a couple weeks fig 4), R trunk rot/R SB - scoliosis ex program, try L/S Yudith ext vs Ramses flex ex's for LBP ( caution: scoliosis). Manual: STM back, hips as needed for pain, stretch to back/hips. Sacral mob. Modalities: MH/IFES to full back or mid>LB.
--- NOTE | 2023-01-18 16:53 | PT.OTN ---
Current Diagnoses Other intervertebral disc degeneration, lumbosacral region (01/18/23) Lumbago with sciatica, unspecified side (01/18/23) Unsteadiness on feet (01/18/23) Physical Therapy Treatment Note PT-OP-A Visit Information Start: 12/03/22 19:44 Freq: Status: Active Protocol: Document 01/18/23 09:33 LRN (Rec: 01/18/23 10:22 LRN [id number]) Out-Patient Physical Therapy Visit Information Visit Information Visit Type Treatment Note Visit Start Time 09:33 Visit Stop Time 10:14 Total Visit Minutes 41 Visit Number 38 Number of SWITCHBOARD RECEPTIONIST Visits 3 Evaluation Information Evaluation Date 12/10/22 Precautions Precautions L thumb joint replacement, arthritis, chronic history of back pain. PT-OP-B Current Condition Start: 12/03/22 19:44 Freq: Status: Active Protocol: Document 12/10/22 09:53 LRN (Rec: 12/10/22 11:27 LRN [id number]) Current Condition History of Current Condition Onset Date 8-9 yrs ago Current Complaints Back pain/stiffness especially bending over for any length of time. History of Current Condition Back pain started due degenerative arthritis onset 8 -9 yrs ago. Had therapy for not being able to roll in bed and get dressed in the morning , but managed with medication started 1 yr ago. Now left with stiffness in the back and pain if bent over for any length of time ~5-10 minutes. Pt in physical therapy at MD recommendation. She reports problem with balalnce and has trouble getting her foot up to put socks on. When showering uses bench to put feet up to wash feet, otherwise wouldn't be able to bend over to perform that. If bent over too long, the back becomes unbearably painful, requiring repositioning to get the pain to stop (ex-stand up, twist). She states bending over to pick things up off the ground is uncomfortable. Prior Treatments and Tests Physical Therapy x 2, for stiffness 9 yrs and 5 yrs ago, not successful. Pt reports no longer having home exercises. Developmental History Developmental History 1 yr ago doctor put her on amitriptyline because she couldn't roll in bed and was then able to move better. Treatment Goals Patient/Caregiver Goals Pt goals: able to move in the morning, get stretches to improve mobility, and be able to bend over to give dogs a bath. 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 Current Functional Impairments (Reported) Functional Limitations- ADL's Have difficulty putting socks/ shoes on. Losses balance a little, can't stand independently to put pants on, needs to lean against wall. Functional Limitations- Mobility/Gait Bending over 5-10 minutes to give dogs a bath causes a lot of back pain. Functional Limitations- Other Not able to lift her 70# dog. Personal Factors Other Personal Factors That May Effect Lives alone, arthritis Therapy/Recovery PT-OP-C Subjective Start: 12/03/22 19:44 Freq: Status: Active Protocol: Document 01/18/23 09:33 LRN (Rec: 01/18/23 10:22 LRN [id number]) OP-PT Subjective Patient Comments Patient Comments No change. Feels almost to the maintenance phase of gardening. PT-OP-G Mobility & Gait Start: 12/03/22 19:44 Freq: Status: Active Protocol: Document 12/10/22 09:53 LRN (Rec: 12/10/22 11:27 LRN [id number]) OP Gait Assessment Gait Gait Assistance Required: Independent Able to Maintain Weight Bearing Status Yes During Gait Assistive Devices Assistive Device None Gait Deviations General Gait Pattern Lateral Trunk Lean,Wide Based Gait Comments Gait Comments No pain with gait. Factors limiting gait: Stiffness of extremities, and reported decreased balance. Stair Climbing Evaluation Comments Stair Climbing Comments No pain with stair ambulation. PT-OP-H Neuro Start: 12/03/22 19:44 Freq: Status: Active Protocol: Document 12/10/22 09:53 LRN (Rec: 12/10/22 11:27 LRN [id number]) Sensation Evaluation Gross Sensation Sensation Description Numbness,Tingling Comments Summary Comments L middle toe numb for a few years. R middle toe is starting to go numb. Tingling and pain is intermittent, numbness constant. Deep Tendon Reflex & Clonus Assessment Deep Tendon Reflex Right Achilles Deep Tendon Reflex 1+ Diminished Left Achilles Deep Tendon Reflex 0 Absent Bilateral Patellar Deep Tendon Reflex 1+ Diminished PT-OP-J Posture/Palpation/Skin Start: 12/03/22 19:44 Freq: Status: Active Protocol: Document 12/10/22 09:53 LRN (Rec: 12/10/22 11:27 LRN [id number]) Posture Evaluation Position Standing Head/C-Spine Posture Side Bent Left,Forward Head L-Spine Posture Increased Lordosis Shoulder Posture (R) Elevated Arm Posture (L) Internally Rotated,(R) Internally Rotated Weight Distribution Balanced Comments Posture Comments Sway back, S-curve of spine: R upper apex on R ~T5, lower apex on L ~L2. Palpation Assessment Location Sacrum Palpation Location R rotated Low back Palpation Location Pain at spinous process L4, L5 Palpation Findings Tenderness PT-OP-K Range of Motion Start: 12/03/22 19:44 Freq: Status: Active Protocol: Document 12/31/22 08:52 LRN (Rec: 12/31/22 09:35 LRN [id number]) Hip Goniometric Range of Motion Hip Right Passive Testing Position Supine Straight Leg Raise 30 Left Passive Testing Position Supine Straight Leg Raise 30 PT-OP-L Special Tests Start: 12/03/22 19:44 Freq: Status: Active Protocol: Document 12/31/22 08:52 LRN (Rec: 12/31/22 17:56 LRN [id number]) Special Tests Lumbar Spine Special Tests Braulio Test Results - bilaterally PT-OP-M Strength Start: 12/03/22 19:44 Freq: Status: Active Protocol: Document 12/24/22 11:21 LRN (Rec: 12/24/22 12:12 LRN [id number]) Hip Strength Hip Manual Muscle Testing Right Flexion (L2) 5 Normal Extension (S1) 3- Fair- Abduction 5 Normal Adduction 5 Normal External Rotation 5 Normal Internal Rotation 5 Normal Left Flexion (L2) 5 Normal Extension (S1) 5 Normal Abduction 5 Normal Adduction 5 Normal External Rotation 5 Normal Internal Rotation 5 Normal PT-OP-Q Treatments Start: 12/03/22 19:44 Freq: Status: Active Protocol: Document 01/18/23 09:33 LRN (Rec: 01/18/23 10:22 LRN [id number]) Therapeutic Exercises Sitting Exercises 3-way ankle strengthening Sitting Exercise Name Ankle IV/EV/DF Side right Reps/Minutes 15x 2 Comments Extra time taken to determine best tolerated position and for training Hip IR Sitting Exercise Name Ankle over knee, leaning forward or knee to opp shoulder stretch Side bilateral Reps/Minutes 60 SH x 2 Comments improved decrease hip tension support reviewed do on regular basis Neuro Re-Education Treatment Balance Activities R SLS Details R side is 9 secs. Arms across chest. Surface Level Reps/Duration 10' Comments L side: 28 secs (3 trials in secs: 3, 15, 37). R side: avg 9 secs (3 trials in secs: 5, 8, 13). SLS practice. Self-Care/Home Management Treatment Education Patient Education Body Mechanics,Posture Other Education Pt education in proper standing and sitting posture with handout issued. Pt educated and discussed with handout issued for proper body mechanics for ADLs and extra time taken to discuss pt 's activity of dog washing. Educated and discussed with handout issued for Sal to Safe Movement with stress of LB in different postures. Activities Self-Care/Home Management Activities Issued & reviewed HEP: 3-way ankle strengthening with TBand (IV, EV, DF). Perry TBAnd issued (Lev 2). PT-OP-T Assessment and Plan Start: 12/03/22 19:44 Freq: Status: Active Protocol: Document 01/18/23 09:33 LRN (Rec: 01/18/23 10:22 LRN [id number]) Physical Therapy Assessment Goals Three Impairment Decreased function due to pain . Senior Living Goal (LTG) Pt will be able to bend over to give dogs a bath, with positional modifications as needed to perform the activity with a tolerable pain level ( 15 minutes or greater). LTG Duration 03/12/23 Two Impairment Decreased Mobility. Impairment Hip mobility (in deg's): IR is 25 R, 15 L; ER is 75 R, 60 L, SLR is 80 R, 70 L. Trunk mobility (in deg's): Flex 52 (45 hip flex), Ext 11 (11 hip ext), Rot is 10 R, 20 L; SB is 0 R, 5 L. Short Term Goal (STG) Improve hip/trunk mobility with the pt able to move with greater ease in the moring. 01/12/23: progressing: states able to get dressed without taking shower to warm up. Ed for performing supine stretching and TA SLR before get up in am for hip mobility. STG Duration 01/22/23 progressing 01/12/23: Electronic Service Technician Goal (LTG) Improve hip/trunk mobility with the pt able to put on her socks without difficulty. 01/12/23: Progressing: ABle to don socks/shoes opp LE over knee. FOrgets can do this strategy to keep hip flexibility tends to put foot up on hamper to help due to SLS putting on socks off balance. Wants to complete SLS . LTG Duration 03/12/23 progressin One Impairment Pt lacks appropriate self care HEP. Short Term Goal (STG) Pt will be educated in log roll transfers, proper sitting & standing posture, proper resting posture, and proper body mechanics for ADLs. 12/31/22: Pt educated in log roll transfer technique sit<> supine. 01/02/23: progressing Continue to review posturing standing, yard work mechanics. STG Duration 12/25/22 progressed 01/12/23 Electronic Service Technician Goal (LTG) Pt will be independent in an effective self care HEP for mobility ex's, and as needed, balance and strengthening exercises. 12/24/22: HEP: TA tightening, Stretches: Piriformis, Lateral hip, Iliopsoas. I/S pt to review Iliopoas stretch for ex next visit and SLS - hands hovering. 12/31/22: HEP: Piriformis sup & sitting, Fig 4 stretch, and LE hamstring/neural stretch. 01/12/23: TA SLR, TA abd/ add, resisted rows/ ext. Stretching need continue regular basis. LTG Duration 03/12/23 progressed 01/12/23 Assessment Summary Assessment Pt with LBP/R hip pain that shows signs of L/S neural involvement with + slump test and relief of LBP with manual lumbar traction. Stair ambulation is normal. Active ankle DF is limited (?strength vs ROM). Pt was receptive to education for low back care since pt appears to be causing pain due to her body mechanics and posturing. Pt goal of standing to don sock/ pants is poor ADL mechanics and pt is receptive to dropping the goal. Physical Therapy Plan Frequency and Duration Frequency of Treatment 2x/Week Plan of Care Start Date 12/10/22 Plan of Care End Date 03/12/23 Next Visit Focus/Plan Next Note Type Treatment Note Next Visit Plan Reassess weeding mechanics. Further assess for SIJ dysfunction. Assess pt adherence to log roll transfers, Reassess for hip ER (?L>R for a couple weeks fig 4), R trunk rot/R SB - scoliosis ex program, try L/S Yudith ext vs Ramses flex ex's for LBP ( caution: scoliosis). Manual: STM back, hips as needed for pain, stretch to back/hips. Sacral mob. Modalities: MH/IFES to full back or mid>LB.
--- NOTE | 2023-01-21 09:45 | PT.OTN ---
Current Diagnoses Other intervertebral disc degeneration, lumbosacral region (01/21/23) Lumbago with sciatica, unspecified side (01/21/23) Unsteadiness on feet (01/21/23) Physical Therapy Treatment Note PT-OP-A Visit Information Start: 12/03/22 19:44 Freq: Status: Active Protocol: Document 01/21/23 09:07 SP (Rec: 01/21/23 09:52 SP [id number]) Out-Patient Physical Therapy Visit Information Visit Information Visit Type Treatment Note Visit Start Time 09:07 Visit Stop Time 09:45 Total Visit Minutes 38 Visit Number 7 Number of GROUP UNDERWRITER Visits 1 Evaluation Information Evaluation Date 12/10/22 Precautions Precautions L thumb joint replacement, arthritis, chronic history of back pain. PT-OP-B Current Condition Start: 12/03/22 19:44 Freq: Status: Active Protocol: Document 12/10/22 09:53 LRN (Rec: 12/10/22 11:27 LRN [id number]) Current Condition History of Current Condition Onset Date 8-9 yrs ago Current Complaints Back pain/stiffness especially bending over for any length of time. History of Current Condition Back pain started due degenerative arthritis onset 8 -9 yrs ago. Had therapy for not being able to roll in bed and get dressed in the morning , but managed with medication started 1 yr ago. Now left with stiffness in the back and pain if bent over for any length of time ~5-10 minutes. Pt in physical therapy at MD recommendation. She reports problem with balalnce and has trouble getting her foot up to put socks on. When showering uses bench to put feet up to wash feet, otherwise wouldn't be able to bend over to perform that. If bent over too long, the back becomes unbearably painful, requiring repositioning to get the pain to stop (ex-stand up, twist). She states bending over to pick things up off the ground is uncomfortable. Prior Treatments and Tests Physical Therapy x 2, for stiffness 9 yrs and 5 yrs ago, not successful. Pt reports no longer having home exercises. Developmental History Developmental History 1 yr ago doctor put her on amitriptyline because she couldn't roll in bed and was then able to move better. Treatment Goals Patient/Caregiver Goals Pt goals: able to move in the morning, get stretches to improve mobility, and be able to bend over to give dogs a bath. Prior Functional Status Baseline Function- ADL's Independent Baseline Function- Mobility Independent Baseline Function- Work/School Retired from [employer] in 2020. 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 Current Functional Impairments (Reported) Functional Limitations- ADL's Have difficulty putting socks/ shoes on. Losses balance a little, can't stand independently to put pants on, needs to lean against wall. Functional Limitations- Mobility/Gait Bending over 5-10 minutes to give dogs a bath causes a lot of back pain. Functional Limitations- Other Not able to lift her 70# dog. Personal Factors Other Personal Factors That May Effect Lives alone, arthritis Therapy/Recovery PT-OP-C Subjective Start: 12/03/22 19:44 Freq: Status: Active Protocol: Document 01/21/23 09:07 SP (Rec: 01/21/23 09:52 SP [id number]) OP-PT Subjective Patient Comments Patient Comments Pt stated I always feel better after I leave. Can we review ankle ex to know doing right. PT-OP-G Mobility & Gait Start: 12/03/22 19:44 Freq: Status: Active Protocol: Document 12/10/22 09:53 LRN (Rec: 12/10/22 11:27 LRN [id number]) OP Gait Assessment Gait Gait Assistance Required: Independent Able to Maintain Weight Bearing Status Yes During Gait Assistive Devices Assistive Device None Gait Deviations General Gait Pattern Lateral Trunk Lean,Wide Based Gait Comments Gait Comments No pain with gait. Factors limiting gait: Stiffness of extremities, and reported decreased balance. Stair Climbing Evaluation Comments Stair Climbing Comments No pain with stair ambulation. PT-OP-H Neuro Start: 12/03/22 19:44 Freq: Status: Active Protocol: Document 12/10/22 09:53 LRN (Rec: 12/10/22 11:27 LRN [id number]) Sensation Evaluation Gross Sensation Sensation Description Numbness,Tingling Comments Summary Comments L middle toe numb for a few years. R middle toe is starting to go numb. Tingling and pain is intermittent, numbness constant. Deep Tendon Reflex & Clonus Assessment Deep Tendon Reflex Right Achilles Deep Tendon Reflex 1+ Diminished Left Achilles Deep Tendon Reflex 0 Absent Bilateral Patellar Deep Tendon Reflex 1+ Diminished PT-OP-J Posture/Palpation/Skin Start: 12/03/22 19:44 Freq: Status: Active Protocol: Document 12/10/22 09:53 LRN (Rec: 12/10/22 11:27 LRN [id number]) Posture Evaluation Position Standing Head/C-Spine Posture Side Bent Left,Forward Head L-Spine Posture Increased Lordosis Shoulder Posture (R) Elevated Arm Posture (L) Internally Rotated,(R) Internally Rotated Weight Distribution Balanced Comments Posture Comments Sway back, S-curve of spine: R upper apex on R ~T5, lower apex on L ~L2. Palpation Assessment Location Sacrum Palpation Location R rotated Low back Palpation Location Pain at spinous process L4, L5 Palpation Findings Tenderness PT-OP-K Range of Motion Start: 12/03/22 19:44 Freq: Status: Active Protocol: Document 12/31/22 08:52 LRN (Rec: 12/31/22 09:35 LRN [id number]) Hip Goniometric Range of Motion Hip Right Passive Testing Position Supine Straight Leg Raise 30 Left Passive Testing Position Supine Straight Leg Raise 30 PT-OP-L Special Tests Start: 12/03/22 19:44 Freq: Status: Active Protocol: Document 12/31/22 08:52 LRN (Rec: 12/31/22 17:56 LRN [id number]) Special Tests Lumbar Spine Special Tests Braulio Test Results - bilaterally PT-OP-M Strength Start: 12/03/22 19:44 Freq: Status: Active Protocol: Document 12/24/22 11:21 LRN (Rec: 12/24/22 12:12 LRN [id number]) Hip Strength Hip Manual Muscle Testing Right Flexion (L2) 5 Normal Extension (S1) 3- Fair- Abduction 5 Normal Adduction 5 Normal External Rotation 5 Normal Internal Rotation 5 Normal Left Flexion (L2) 5 Normal Extension (S1) 5 Normal Abduction 5 Normal Adduction 5 Normal External Rotation 5 Normal Internal Rotation 5 Normal PT-OP-Q Treatments Start: 12/03/22 19:44 Freq: Status: Active Protocol: Document 01/21/23 09:07 SP (Rec: 01/21/23 09:52 SP [id number]) Therapeutic Exercises Supine Exercises TA SLR Supine Exercise Name reviewed HEP Side bilateral Reps/Minutes 2x12 Comments cued TA, stable pelvis, lift up to opp knee Fig 4 stretch Supine Exercise Name Fig 4 stretch- HEP reviewed Side bilateral Reps/Minutes 30SH w/ breath allow increase ER stretch Comments ankle over lower leg just below knee- painfree gd stretch L little dec ROM Sitting Exercises 3-way ankle strengthening Sitting Exercise Name Ankle IV/EV/DF Side right Reps/Minutes 15x 2 (HO states 5 SH x10 x3 sets) each Comments IV LLE behind works best, better understanding today Hip IR Sitting Exercise Name Ankle over knee, leaning forward or knee to opp shoulder stretch Side bilateral Equipment Used Pt refers rotating trunk toward bent knee as well for added QL stretch Reps/Minutes 60 SH x 2 Comments improved decrease hip tension support reviewed do on regular basis- gd str Standing Exercises resisted TA shoulder ext Standing Exercise Name HEP reviewed: rows and extension Resistance Tb #3>#5 (plum) Comments cued straight arms, scap set back/open chest con/ecc, PPT/ TA fac Self-Care/Home Management Treatment Education Patient Education Body Mechanics,Pain Management ,Posture Other Education Reviewed Sal to Safe Movement with stress of LB in different postures seated, standing while weeding, discouraged side sitting, suggested quadruped (kneel pad ) wt shift with opp UE supported on ground. Good LS log roll mechanics. PT-OP-T Assessment and Plan Start: 12/03/22 19:44 Freq: Status: Active Protocol: Document 01/21/23 09:07 SP (Rec: 01/21/23 09:52 SP [id number]) Physical Therapy Assessment Goals Three Impairment Decreased function due to pain . Marketing Proposal Coordinator Goal (LTG) Pt will be able to bend over to give dogs a bath, with positional modifications as needed to perform the activity with a tolerable pain level ( 15 minutes or greater). LTG Duration 03/12/23 Two Impairment Decreased Mobility. Impairment Hip mobility (in deg's): IR is 25 R, 15 L; ER is 75 R, 60 L, SLR is 80 R, 70 L. Trunk mobility (in deg's): Flex 52 (45 hip flex), Ext 11 (11 hip ext), Rot is 10 R, 20 L; SB is 0 R, 5 L. Short Term Goal (STG) Improve hip/trunk mobility with the pt able to move with greater ease in the moring. 01/12/23: progressing: states able to get dressed without taking shower to warm up. Ed for performing supine stretching and TA SLR before get up in am for hip mobility. STG Duration 01/22/23 progressing 01/12/23: Senior Living Goal (LTG) Improve hip/trunk mobility with the pt able to put on her socks without difficulty. 01/12/23: Progressing: ABle to don socks/shoes opp LE over knee. FOrgets can do this strategy to keep hip flexibility tends to put foot up on hamper to help due to SLS putting on socks off balance. Wants to complete SLS . LTG Duration 03/12/23 progressin One Impairment Pt lacks appropriate self care HEP. Short Term Goal (STG) Pt will be educated in log roll transfers, proper sitting & standing posture, proper resting posture, and proper body mechanics for ADLs. 12/31/22: Pt educated in log roll transfer technique sit<> supine. 01/02/23: progressing Continue to review posturing standing, yard work mechanics. STG Duration 12/25/22 progressed 01/12/23 Senior Living Goal (LTG) Pt will be independent in an effective self care HEP for mobility ex's, and as needed, balance and strengthening exercises. 12/24/22: HEP: TA tightening, Stretches: Piriformis, Lateral hip, Iliopsoas. I/S pt to review Iliopoas stretch for ex next visit and SLS - hands hovering. 12/31/22: HEP: Piriformis sup & sitting, Fig 4 stretch, and LE hamstring/neural stretch. 01/12/23: TA SLR, TA abd/ add, resisted rows/ ext. Stretching need continue regular basis. LTG Duration 03/12/23 progressed 01/12/23 Assessment Summary Assessment Pt improved confidence resisted 3 way ankle HEP, reviewed TA SLR and low back positioning. Pt better Yudith Flexion. Time spent review mechanics yard work, side sitting not back supported. Physical Therapy Plan Frequency and Duration Frequency of Treatment 2x/Week Plan of Care Start Date 12/10/22 Plan of Care End Date 03/12/23 Therapeutic Interventions Therapeutic Interventions Home Exercise Program,Joint Mobilizations,Manual Therapy, Neuromuscular Re-education, Patient/Caregiver Education, Self-Care/Home Management,Soft Tissue Mobilization, Therapeutic Activities, Therapeutic Exercises Modalities Cold Pack/Ice Massage,Electric Stimulation,Hot Packs, Ultrasound Next Visit Focus/Plan Next Note Type Treatment Note Next Visit Plan Review TA SLR, Further assess for SIJ dysfunction. Assess pt adherence to back alignment weeding, Reassess for hip ER (?L>R for a couple weeks fig 4), R trunk rot/R SB - scoliosis ex program, try L/S Yudith ext vs Ramses flex ex's for LBP ( caution: scoliosis). Manual: STM back, hips as needed for pain, stretch to back/hips. Sacral mob. Modalities: MH/IFES to full back or mid>LB.
--- NOTE | 2023-01-26 16:28 | PT.OTN ---
Current Diagnoses Other intervertebral disc degeneration, lumbosacral region (01/26/23) Lumbago with sciatica, unspecified side (01/26/23) Unsteadiness on feet (01/26/23) Physical Therapy Treatment Note PT-OP-A Visit Information Start: 12/03/22 19:44 Freq: Status: Active Protocol: Document 01/26/23 10:37 NBM (Rec: 01/26/23 11:31 NBM [id number]) Out-Patient Physical Therapy Visit Information Visit Information Visit Type Treatment Note Visit Start Time 10:34 Visit Stop Time 11:20 Total Visit Minutes 46 Visit Number 8 Number of HELICOPTER TECHNICIAN Visits 2 PT-OP-B Current Condition Start: 12/03/22 19:44 Freq: Status: Active Protocol: Document 12/10/22 09:53 LRN (Rec: 12/10/22 11:27 LRN [id number]) Current Condition History of Current Condition Onset Date 8-9 yrs ago Current Complaints Back pain/stiffness especially bending over for any length of time. History of Current Condition Back pain started due degenerative arthritis onset 8 -9 yrs ago. Had therapy for not being able to roll in bed and get dressed in the morning , but managed with medication started 1 yr ago. Now left with stiffness in the back and pain if bent over for any length of time ~5-10 minutes. Pt in physical therapy at MD recommendation. She reports problem with balalnce and has trouble getting her foot up to put socks on. When showering uses bench to put feet up to wash feet, otherwise wouldn't be able to bend over to perform that. If bent over too long, the back becomes unbearably painful, requiring repositioning to get the pain to stop (ex-stand up, twist). She states bending over to pick things up off the ground is uncomfortable. Prior Treatments and Tests Physical Therapy x 2, for stiffness 9 yrs and 5 yrs ago, not successful. Pt reports no longer having home exercises. Developmental History Developmental History 1 yr ago doctor put her on amitriptyline because she couldn't roll in bed and was then able to move better. Treatment Goals Patient/Caregiver Goals Pt goals: able to move in the morning, get stretches to improve mobility, and be able to bend over to give dogs a bath. 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 Current Functional Impairments (Reported) Functional Limitations- ADL's Have difficulty putting socks/ shoes on. Losses balance a little, can't stand independently to put pants on, needs to lean against wall. Functional Limitations- Mobility/Gait Bending over 5-10 minutes to give dogs a bath causes a lot of back pain. Functional Limitations- Other Not able to lift her 70# dog. Personal Factors Other Personal Factors That May Effect Lives alone, arthritis Therapy/Recovery PT-OP-C Subjective Start: 12/03/22 19:44 Freq: Status: Active Protocol: Document 01/26/23 10:37 NBM (Rec: 01/26/23 11:31 NBM [id number]) OP-PT Subjective Patient Comments Patient Comments Pt states she is a little sore this morning from doing too much. She did gardening over the weekend and is trying to be mindful of her posture. She did not do her ex's since last visit except for the straight leg raise. PT-OP-G Mobility & Gait Start: 12/03/22 19:44 Freq: Status: Active Protocol: Document 12/10/22 09:53 LRN (Rec: 12/10/22 11:27 LRN [id number]) OP Gait Assessment Gait Gait Assistance Required: Independent Able to Maintain Weight Bearing Status Yes During Gait Assistive Devices Assistive Device None Gait Deviations General Gait Pattern Lateral Trunk Lean,Wide Based Gait Comments Gait Comments No pain with gait. Factors limiting gait: Stiffness of extremities, and reported decreased balance. Stair Climbing Evaluation Comments Stair Climbing Comments No pain with stair ambulation. PT-OP-H Neuro Start: 12/03/22 19:44 Freq: Status: Active Protocol: Document 12/10/22 09:53 LRN (Rec: 12/10/22 11:27 LRN [id number]) Sensation Evaluation Gross Sensation Sensation Description Numbness,Tingling Comments Summary Comments L middle toe numb for a few years. R middle toe is starting to go numb. Tingling and pain is intermittent, numbness constant. Deep Tendon Reflex & Clonus Assessment Deep Tendon Reflex Right Achilles Deep Tendon Reflex 1+ Diminished Left Achilles Deep Tendon Reflex 0 Absent Bilateral Patellar Deep Tendon Reflex 1+ Diminished PT-OP-J Posture/Palpation/Skin Start: 12/03/22 19:44 Freq: Status: Active Protocol: Document 12/10/22 09:53 LRN (Rec: 12/10/22 11:27 LRN [id number]) Posture Evaluation Position Standing Head/C-Spine Posture Side Bent Left,Forward Head L-Spine Posture Increased Lordosis Shoulder Posture (R) Elevated Arm Posture (L) Internally Rotated,(R) Internally Rotated Weight Distribution Balanced Comments Posture Comments Sway back, S-curve of spine: R upper apex on R ~T5, lower apex on L ~L2. Palpation Assessment Location Sacrum Palpation Location R rotated Low back Palpation Location Pain at spinous process L4, L5 Palpation Findings Tenderness PT-OP-K Range of Motion Start: 12/03/22 19:44 Freq: Status: Active Protocol: Document 12/31/22 08:52 LRN (Rec: 12/31/22 09:35 LRN [id number]) Hip Goniometric Range of Motion Hip Right Passive Testing Position Supine Straight Leg Raise 30 Left Passive Testing Position Supine Straight Leg Raise 30 PT-OP-L Special Tests Start: 12/03/22 19:44 Freq: Status: Active Protocol: Document 12/31/22 08:52 LRN (Rec: 12/31/22 17:56 LRN [id number]) Special Tests Lumbar Spine Special Tests Braulio Test Results - bilaterally PT-OP-M Strength Start: 12/03/22 19:44 Freq: Status: Active Protocol: Document 12/24/22 11:21 LRN (Rec: 12/24/22 12:12 LRN [id number]) Hip Strength Hip Manual Muscle Testing Right Flexion (L2) 5 Normal Extension (S1) 3- Fair- Abduction 5 Normal Adduction 5 Normal External Rotation 5 Normal Internal Rotation 5 Normal Left Flexion (L2) 5 Normal Extension (S1) 5 Normal Abduction 5 Normal Adduction 5 Normal External Rotation 5 Normal Internal Rotation 5 Normal PT-OP-Q Treatments Start: 12/03/22 19:44 Freq: Status: Active Protocol: Document 01/26/23 10:37 NBM (Rec: 01/26/23 11:31 NBM [id number]) Therapeutic Exercises Supine Exercises TA BKFO Supine Exercise Name Bent Knee fallout Side bilateral Reps/Minutes 2 min Comments self-monitoring TrA medial to ASIS. TA LTR Supine Exercise Name added to HEP Side bilateral Reps/Minutes 8 reps, arms out to side- 5 SH TA SLR Supine Exercise Name reviewed HEP Side bilateral Reps/Minutes 2x12 Comments cued TA, stable pelvis, lift up to opp knee Fig 4 stretch Supine Exercise Name Fig 4 stretch- HEP reviewed Side bilateral Reps/Minutes 30SH w/ breath allow increase ER stretch Comments ankle over lower leg just below knee- painfree gd stretch L little dec ROM Sitting Exercises 3-way ankle strengthening Sitting Exercise Name Ankle IV/EV/DF Side right Reps/Minutes 15x 2 (HO states 5 SH x10 x3 sets) each Comments IV LLE behind works best, better understanding today Hip IR Sitting Exercise Name Ankle over knee, leaning forward or knee to opp shoulder stretch Side bilateral Equipment Used Pt refers rotating trunk toward bent knee as well for added QL stretch Reps/Minutes 60 SH x 2 Comments improved decrease hip tension support reviewed do on regular basis- gd str Standing Exercises resisted TA shoulder ext Standing Exercise Name HEP reviewed: rows and extension Resistance Tb #3>#5 (plum) Comments cued straight arms, scap set back/open chest con/ecc, PPT/ TA fac Self-Care/Home Management Treatment Education Patient Education Body Mechanics,Home Exercise Program,Pain Management, Posture Other Education -Time spent body mechanics weeding in kneel, 1/2 kneel, quadruped, and seated on low stool weeding w/ 1 UE support and wt shift between BLEs straight back with TA awareness for no LB recruitment. Discussed no side sitting and pulling motions, trunk facing and wt shift for spinal and back support/health . Discussed stretching and positional breaks instead of working through the pain. -Added to HEP: 3-way parveen pose and Kitchen sink stretch - HO given. -Pt instructed in self- monitoring of TrA medial to ASIS w/ SLR and BKFO. PT-OP-T Assessment and Plan Start: 12/03/22 19:44 Freq: Status: Active Protocol: Document 01/26/23 10:37 [facility] (Rec: 01/26/23 11:31 [facility] [id number]) Physical Therapy Assessment Impairments Impairments Activity Tolerance,Balance, Functional Activities, Functional Mobility,Gait,Pain, Posture,ROM,Sensation Other Impairments Stiffness Goals Three Impairment Decreased function due to pain . Assistant Laboratory Director Goal (LTG) Pt will be able to bend over to give dogs a bath, with positional modifications as needed to perform the activity with a tolerable pain level ( 15 minutes or greater). LTG Duration 03/12/23 Two Impairment Decreased Mobility. Impairment Hip mobility (in deg's): IR is 25 R, 15 L; ER is 75 R, 60 L, SLR is 80 R, 70 L. Trunk mobility (in deg's): Flex 52 (45 hip flex), Ext 11 (11 hip ext), Rot is 10 R, 20 L; SB is 0 R, 5 L. Short Term Goal (STG) Improve hip/trunk mobility with the pt able to move with greater ease in the moring. 01/12/23: progressing: states able to get dressed without taking shower to warm up. Ed for performing supine stretching and TA SLR before get up in am for hip mobility. STG Duration 01/22/23 progressing 01/12/23: Skilled Nursing Goal (LTG) Improve hip/trunk mobility with the pt able to put on her socks without difficulty. 01/12/23: Progressing: ABle to don socks/shoes opp LE over knee. FOrgets can do this strategy to keep hip flexibility tends to put foot up on hamper to help due to SLS putting on socks off balance. Wants to complete SLS . 01/26/23: Pt is able to sit in Fig 4 to don socks/shoes and place theraband around foot for ankle ex's, but she requires reminders to use this position instead of placing foot on hamper and leaning down. LTG Duration 03/12/23 progressin One Impairment Pt lacks appropriate self care HEP. Short Term Goal (STG) Pt will be educated in log roll transfers, proper sitting & standing posture, proper resting posture, and proper body mechanics for ADLs. 12/31/22: Pt educated in log roll transfer technique sit<> supine. 01/02/23: progressing Continue to review posturing standing, yard work mechanics. STG Duration 12/25/22 progressed 01/12/23 Assistant Laboratory Director Goal (LTG) Pt will be independent in an effective self care HEP for mobility ex's, and as needed, balance and strengthening exercises. 12/24/22: HEP: TA tightening, Stretches: Piriformis, Lateral hip, Iliopsoas. I/S pt to review Iliopoas stretch for ex next visit and SLS - hands hovering. 12/31/22: HEP: Piriformis sup & sitting, Fig 4 stretch, and LE hamstring/neural stretch. 01/12/23: TA SLR, TA abd/ add, resisted rows/ ext. Stretching need continue regular basis. 01/26/23: added to HEP: 3-way child's pose and Kitchen sink stretch. Pt encouraged to take breaks to stretch during weeding activities and try low stool. LTG Duration 03/12/23 progressed 01/12/23 Assessment Summary Assessment Treatment focus on HEP review and Transverse abdominus activation. Pt requires cues for setup and form with 3-way ankle. Brief discussion with pt to avoid lumbar hyperextension with standing posture and resisted shoulder ex's. Reviewed body mechanics for weeding with positive feedback response to low stool and lumbar stretching - pt encouraged stretching breaks as needed instead of working through the low back pain - added child's pose and Kitchen sink stretches to HEP - HO given. Pt also encouraged to stretch prior to getting out of bed and to use seated Figure 4 for donning socks/ shoes and placing theraband for 3-way ankle ex's. Pt instructed in self-monitoring of TrA medial to ASIS w/ SLR and BKFO. Physical Therapy Plan Frequency and Duration Frequency of Treatment 2x/Week Plan of Care Start Date 12/10/22 Plan of Care End Date 03/12/23 Therapeutic Interventions Therapeutic Interventions Home Exercise Program,Joint Mobilizations,Manual Therapy, Neuromuscular Re-education, Patient/Caregiver Education, Self-Care/Home Management,Soft Tissue Mobilization, Therapeutic Activities, Therapeutic Exercises Modalities Cold Pack/Ice Massage,Electric Stimulation,Hot Packs, Ultrasound Next Visit Focus/Plan Next Note Type Treatment Note Next Visit Plan Review TA SLR, Further assess for SIJ dysfunction. Assess pt adherence to back alignment weeding, Reassess for hip ER (?L>R for a couple weeks fig 4), R trunk rot/R SB - scoliosis ex program, try L/S Yudith ext vs Ramses flex ex's for LBP ( caution: scoliosis). Manual: STM back, hips as needed for pain, stretch to back/hips. Sacral mob. Modalities: MH/IFES to full back or mid>LB.
--- NOTE | 2023-02-08 18:21 | PT.OTN ---
Current Diagnoses Other intervertebral disc degeneration, lumbosacral region (02/08/23) Lumbago with sciatica, unspecified side (02/08/23) Unsteadiness on feet (02/08/23) Physical Therapy Treatment Note PT-OP-A Visit Information Start: 12/03/22 19:44 Freq: Status: Active Protocol: Document 02/08/23 08:55 LRN (Rec: 02/08/23 09:39 LRN [id number]) Out-Patient Physical Therapy Visit Information Visit Information Visit Type Treatment Note Visit Start Time 08:55 Visit Stop Time 09:36 Total Visit Minutes 41 Visit Number 9 Evaluation Information Evaluation Date 12/10/22 Precautions Precautions L thumb joint replacement, arthritis, chronic history of back pain. PT-OP-B Current Condition Start: 12/03/22 19:44 Freq: Status: Active Protocol: Document 12/10/22 09:53 LRN (Rec: 12/10/22 11:27 LRN [id number]) Current Condition History of Current Condition Onset Date 8-9 yrs ago Current Complaints Back pain/stiffness especially bending over for any length of time. History of Current Condition Back pain started due degenerative arthritis onset 8 -9 yrs ago. Had therapy for not being able to roll in bed and get dressed in the morning , but managed with medication started 1 yr ago. Now left with stiffness in the back and pain if bent over for any length of time ~5-10 minutes. Pt in physical therapy at MD recommendation. She reports problem with balalnce and has trouble getting her foot up to put socks on. When showering uses bench to put feet up to wash feet, otherwise wouldn't be able to bend over to perform that. If bent over too long, the back becomes unbearably painful, requiring repositioning to get the pain to stop (ex-stand up, twist). She states bending over to pick things up off the ground is uncomfortable. Prior Treatments and Tests Physical Therapy x 2, for stiffness 9 yrs and 5 yrs ago, not successful. Pt reports no longer having home exercises. Developmental History Developmental History 1 yr ago doctor put her on amitriptyline because she couldn't roll in bed and was then able to move better. Treatment Goals Patient/Caregiver Goals Pt goals: able to move in the morning, get stretches to improve mobility, and be able to bend over to give dogs a bath. Prior Functional Status Baseline Function- ADL's Independent Baseline Function- Mobility Independent Baseline Function- Work/School Retired from [employer] in 2020. 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 Current Functional Impairments (Reported) Functional Limitations- ADL's Have difficulty putting socks/ shoes on. Losses balance a little, can't stand independently to put pants on, needs to lean against wall. Functional Limitations- Mobility/Gait Bending over 5-10 minutes to give dogs a bath causes a lot of back pain. Functional Limitations- Other Not able to lift her 70# dog. Personal Factors Other Personal Factors That May Effect Lives alone, arthritis Therapy/Recovery PT-OP-C Subjective Start: 12/03/22 19:44 Freq: Status: Active Protocol: Document 02/08/23 08:55 LRN (Rec: 02/08/23 09:39 LRN [id number]) OP-PT Subjective Patient Comments Patient Comments Has been busy, and when does exercises she feels better. Spent week in [place] sitting. Still not able to bend over and wash dogs, in fact sore dressing. Requests more exercises for abdomen and return in a month on her HEP, but agreeable to return at end of month. PT-OP-G Mobility & Gait Start: 12/03/22 19:44 Freq: Status: Active Protocol: Document 12/10/22 09:53 LRN (Rec: 12/10/22 11:27 LRN [id number]) OP Gait Assessment Gait Gait Assistance Required: Independent Able to Maintain Weight Bearing Status Yes During Gait Assistive Devices Assistive Device None Gait Deviations General Gait Pattern Lateral Trunk Lean,Wide Based Gait Comments Gait Comments No pain with gait. Factors limiting gait: Stiffness of extremities, and reported decreased balance. Stair Climbing Evaluation Comments Stair Climbing Comments No pain with stair ambulation. PT-OP-H Neuro Start: 12/03/22 19:44 Freq: Status: Active Protocol: Document 12/10/22 09:53 LRN (Rec: 12/10/22 11:27 LRN [id number]) Sensation Evaluation Gross Sensation Sensation Description Numbness,Tingling Comments Summary Comments L middle toe numb for a few years. R middle toe is starting to go numb. Tingling and pain is intermittent, numbness constant. Deep Tendon Reflex & Clonus Assessment Deep Tendon Reflex Right Achilles Deep Tendon Reflex 1+ Diminished Left Achilles Deep Tendon Reflex 0 Absent Bilateral Patellar Deep Tendon Reflex 1+ Diminished PT-OP-J Posture/Palpation/Skin Start: 12/03/22 19:44 Freq: Status: Active Protocol: Document 12/10/22 09:53 LRN (Rec: 12/10/22 11:27 LRN [id number]) Posture Evaluation Position Standing Head/C-Spine Posture Side Bent Left,Forward Head L-Spine Posture Increased Lordosis Shoulder Posture (R) Elevated Arm Posture (L) Internally Rotated,(R) Internally Rotated Weight Distribution Balanced Comments Posture Comments Sway back, S-curve of spine: R upper apex on R ~T5, lower apex on L ~L2. Palpation Assessment Location Sacrum Palpation Location R rotated Low back Palpation Location Pain at spinous process L4, L5 Palpation Findings Tenderness PT-OP-K Range of Motion Start: 12/03/22 19:44 Freq: Status: Active Protocol: Document 12/31/22 08:52 LRN (Rec: 12/31/22 09:35 LRN [id number]) Hip Goniometric Range of Motion Hip Right Passive Testing Position Supine Straight Leg Raise 30 Left Passive Testing Position Supine Straight Leg Raise 30 PT-OP-L Special Tests Start: 12/03/22 19:44 Freq: Status: Active Protocol: Document 12/31/22 08:52 LRN (Rec: 12/31/22 17:56 LRN [id number]) Special Tests Lumbar Spine Special Tests Braulio Test Results - bilaterally PT-OP-M Strength Start: 12/03/22 19:44 Freq: Status: Active Protocol: Document 12/24/22 11:21 LRN (Rec: 12/24/22 12:12 LRN [id number]) Hip Strength Hip Manual Muscle Testing Right Flexion (L2) 5 Normal Extension (S1) 3- Fair- Abduction 5 Normal Adduction 5 Normal External Rotation 5 Normal Internal Rotation 5 Normal Left Flexion (L2) 5 Normal Extension (S1) 5 Normal Abduction 5 Normal Adduction 5 Normal External Rotation 5 Normal Internal Rotation 5 Normal PT-OP-Q Treatments Start: 12/03/22 19:44 Freq: Status: Active Protocol: Document 02/08/23 08:55 LRN (Rec: 02/08/23 09:39 LRN [id number]) Therapeutic Exercises Supine Exercises TA/Meet heel slides Supine Exercise Name TA/Meet heel slides Side bilateral Comments Cuing to maintain neutral from pelvic tilting. TA/Meet stepping out Supine Exercise Name TA/Meet stepping out one leg at time. Side bilateral Comments Cuing to keep pelvis level/ stable TA meet arm lift Supine Exercise Name TA Meet arm lifts Side bilateral Comments Cuing to prevent back ext TA meet arm/leg lift Supine Exercise Name TA meet arm/leg lift Side bilateral Comments cuing to co-contract for neutral spine positioning TA opp arm/leg Supine Exercise Name TA oppn arm/leg Side bilateral Comments Cuing needed for coordination of activities R Lateral Hip Supine Exercise Name R lateral hip stretch Side right Reps/Minutes 60 secs TA SLR Supine Exercise Name TA SLR Side bilateral Reps/Minutes 10x Comments Extra time to determine max ran position w/o pain = TA tight Piriformis stretch Supine Exercise Name Piriformis Stretch Side right Reps/Minutes 60 secs Prone Exercises TA/Meet stepping out Prone Exercise Name Error - see supine TA/Meet stepping out TA Meet arm lift Prone Exercise Name Error - see supine TA Meet arm lifts TA meet arm lift/leg lift Prone Exercise Name Error - see supine TA meet arm/ leg lift TA opp arm/leg Prone Exercise Name Error - see supine TA opp arm/ leg R Lateral Hip Prone Exercise Name Error - see supine R Lateral Hip R Piriformis Prone Exercise Name Error - see supine Piriformis stretch TA/leg ext Prone Exercise Name Error - see supine TA SLR Self-Care/Home Management Treatment Education Patient Education Home Exercise Program Other Education Issued & reviewed multiple times during therapy for Core stab program: Supine (arm & leg lifts of diffierent combos , and bridge position of different combos), hands/knees and kneeling ex's. PT-OP-T Assessment and Plan Start: 12/03/22 19:44 Freq: Status: Active Protocol: Document 02/08/23 08:55 LRN (Rec: 02/08/23 09:39 LRN [id number]) Physical Therapy Assessment Goals Three Impairment Decreased function due to pain . Mcc Goal (LTG) Pt will be able to bend over to give dogs a bath, with positional modifications as needed to perform the activity with a tolerable pain level ( 15 minutes or greater). LTG Duration 03/12/23 Two Impairment Decreased Mobility. Impairment Hip mobility (in deg's): IR is 25 R, 15 L; ER is 75 R, 60 L, SLR is 80 R, 70 L. Trunk mobility (in deg's): Flex 52 (45 hip flex), Ext 11 (11 hip ext), Rot is 10 R, 20 L; SB is 0 R, 5 L. Short Term Goal (STG) Improve hip/trunk mobility with the pt able to move with greater ease in the moring. 01/12/23: progressing: states able to get dressed without taking shower to warm up. Ed for performing supine stretching and TA SLR before get up in am for hip mobility. STG Duration 01/22/23 progressing 01/12/23: Mcc Goal (LTG) Improve hip/trunk mobility with the pt able to put on her socks without difficulty. 01/12/23: Progressing: ABle to don socks/shoes opp LE over knee. FOrgets can do this strategy to keep hip flexibility tends to put foot up on hamper to help due to SLS putting on socks off balance. Wants to complete SLS . 01/26/23: Pt is able to sit in Fig 4 to don socks/shoes and place theraband around foot for ankle ex's, but she requires reminders to use this position instead of placing foot on hamper and leaning down. LTG Duration 03/12/23 progressin One Impairment Pt lacks appropriate self care HEP. Short Term Goal (STG) Pt will be educated in log roll transfers, proper sitting & standing posture, proper resting posture, and proper body mechanics for ADLs. 12/31/22: Pt educated in log roll transfer technique sit<> supine. 01/02/23: progressing Continue to review posturing standing, yard work mechanics. STG Duration 12/25/22 progressed 01/12/23 Mcc Goal (LTG) Pt will be independent in an effective self care HEP for mobility ex's, and as needed, balance and strengthening exercises. 12/24/22: HEP: TA tightening, Stretches: Piriformis, Lateral hip, Iliopsoas. I/S pt to review Iliopoas stretch for ex next visit and SLS - hands hovering. 12/31/22: HEP: Piriformis sup & sitting, Fig 4 stretch, and LE hamstring/neural stretch. 01/12/23: TA SLR, TA abd/ add, resisted rows/ ext. Stretching need continue regular basis. 01/26/23: added to HEP: 3-way child's pose and Kitchen sink stretch. Pt encouraged to take breaks to stretch during weeding activities and try low stool. LTG Duration 03/12/23 progressed 01/12/23 Assessment Summary Assessment Pt needing more time to do ex' s since her home life is busy. Pt appears to understand about progression of core stabilization program of supine TA & paraspinal core stab, and 4 pt/kneeling core stab exercises. Pt appears to have more back pain since her trip to [place] from prolonged sitting on plane. She needed review of how to stabilize TA w/SLR and needed education in ex progression of maintaining stability through 3x10 reps of ex for endurance training. Physical Therapy Plan Frequency and Duration Frequency of Treatment 2x/Week Plan of Care Start Date 12/10/22 Plan of Care End Date 03/12/23 Next Visit Focus/Plan Next Note Type Progress Note Next Visit Plan Recheck after ~2.5 weeks (02/25) on HEP of core stab ex's. Assess pt adherence to back alignment weeding, Further assess for SIJ dysfunction, Reassess for hip ER (?L>R for a couple weeks fig 4), R trunk rot/R SB - scoliosis ex program, try L/S Yudith ext vs Ramses flex ex's for LBP ( caution: scoliosis). Manual: STM back, hips as needed for pain, stretch to back/hips. Sacral mob. Modalities: MH/IFES to full back or mid>LB.
--- NOTE | 2023-02-23 09:31 | PT.OTN ---
Current Diagnoses Other intervertebral disc degeneration, lumbosacral region (02/22/23) Lumbago with sciatica, unspecified side (02/22/23) Unsteadiness on feet (02/22/23) Physical Therapy Treatment Note PT-OP-A Visit Information Start: 12/03/22 19:44 Freq: Status: Active Protocol: Document 02/22/23 09:36 LRN (Rec: 02/22/23 10:23 LRN [id number]) Out-Patient Physical Therapy Visit Information Visit Information Visit Type Progress Note Visit Start Time 09:36 Visit Stop Time 10:19 Total Visit Minutes 43 Visit Number 10 Evaluation Information Evaluation Date 12/10/22 Precautions Precautions L thumb joint replacement, arthritis, chronic history of back pain. PT-OP-B Current Condition Start: 12/03/22 19:44 Freq: Status: Active Protocol: Document 12/10/22 09:53 LRN (Rec: 12/10/22 11:27 LRN [id number]) Current Condition History of Current Condition Onset Date 8-9 yrs ago Current Complaints Back pain/stiffness especially bending over for any length of time. History of Current Condition Back pain started due degenerative arthritis onset 8 -9 yrs ago. Had therapy for not being able to roll in bed and get dressed in the morning , but managed with medication started 1 yr ago. Now left with stiffness in the back and pain if bent over for any length of time ~5-10 minutes. Pt in physical therapy at MD recommendation. She reports problem with balalnce and has trouble getting her foot up to put socks on. When showering uses bench to put feet up to wash feet, otherwise wouldn't be able to bend over to perform that. If bent over too long, the back becomes unbearably painful, requiring repositioning to get the pain to stop (ex-stand up, twist). She states bending over to pick things up off the ground is uncomfortable. Prior Treatments and Tests Physical Therapy x 2, for stiffness 9 yrs and 5 yrs ago, not successful. Pt reports no longer having home exercises. Developmental History Developmental History 1 yr ago doctor put her on amitriptyline because she couldn't roll in bed and was then able to move better. Treatment Goals Patient/Caregiver Goals Pt goals: able to move in the morning, get stretches to improve mobility, and be able to bend over to give dogs a bath. Prior Functional Status Baseline Function- ADL's Independent Baseline Function- Mobility Independent Baseline Function- Work/School Retired from [employer] in 2020. 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 Current Functional Impairments (Reported) Functional Limitations- ADL's Have difficulty putting socks/ shoes on. Losses balance a little, can't stand independently to put pants on, needs to lean against wall. Functional Limitations- Mobility/Gait Bending over 5-10 minutes to give dogs a bath causes a lot of back pain. Functional Limitations- Other Not able to lift her 70# dog. Personal Factors Other Personal Factors That May Effect Lives alone, arthritis Therapy/Recovery PT-OP-C Subjective Start: 12/03/22 19:44 Freq: Status: Active Protocol: Document 02/22/23 09:36 LRN (Rec: 02/22/23 10:23 LRN [id number]) OP-PT Subjective Patient Comments Patient Comments Hasn't been consistent with HEP. Condition hasn't changed . Pain rated 1/10. Pt reports she has been working in her yard. Not able to do the proper body mechanics with weeding. More conscious about getting in/out of bed. Pt reports able to move easier in the morning. Patient Questionnaires Oswestry Low Back Index Oswestry Score 8/50 Oswestry Impairment 1 to 19% Impaired (Score 1-19) OP-PT Pain Assessment Pain Assessment Grid Paper Pain Assessment Grid Completed Yes Location L hip Pain Location Details L lateral hip Intensity 2 Scale Used Numeric (0 - 10) R lateral hip Pain Location Details R lateral hip Intensity 1 Scale Used Numeric (0 - 10) Description- Other 1-7 Low Back Pain Location Details Across LB Intensity 3 Scale Used Numeric (0 - 10) Description- Other 1-3 PT-OP-G Mobility & Gait Start: 12/03/22 19:44 Freq: Status: Active Protocol: Document 12/10/22 09:53 LRN (Rec: 12/10/22 11:27 LRN [id number]) OP Gait Assessment Gait Gait Assistance Required: Independent Able to Maintain Weight Bearing Status Yes During Gait Assistive Devices Assistive Device None Gait Deviations General Gait Pattern Lateral Trunk Lean,Wide Based Gait Comments Gait Comments No pain with gait. Factors limiting gait: Stiffness of extremities, and reported decreased balance. Stair Climbing Evaluation Comments Stair Climbing Comments No pain with stair ambulation. PT-OP-H Neuro Start: 12/03/22 19:44 Freq: Status: Active Protocol: Document 12/10/22 09:53 LRN (Rec: 12/10/22 11:27 LRN [id number]) Sensation Evaluation Gross Sensation Sensation Description Numbness,Tingling Comments Summary Comments L middle toe numb for a few years. R middle toe is starting to go numb. Tingling and pain is intermittent, numbness constant. Deep Tendon Reflex & Clonus Assessment Deep Tendon Reflex Right Achilles Deep Tendon Reflex 1+ Diminished Left Achilles Deep Tendon Reflex 0 Absent Bilateral Patellar Deep Tendon Reflex 1+ Diminished PT-OP-J Posture/Palpation/Skin Start: 12/03/22 19:44 Freq: Status: Active Protocol: Document 12/10/22 09:53 LRN (Rec: 12/10/22 11:27 LRN [id number]) Posture Evaluation Position Standing Head/C-Spine Posture Side Bent Left,Forward Head L-Spine Posture Increased Lordosis Shoulder Posture (R) Elevated Arm Posture (L) Internally Rotated,(R) Internally Rotated Weight Distribution Balanced Comments Posture Comments Sway back, S-curve of spine: R upper apex on R ~T5, lower apex on L ~L2. Palpation Assessment Location Sacrum Palpation Location R rotated Low back Palpation Location Pain at spinous process L4, L5 Palpation Findings Tenderness PT-OP-K Range of Motion Start: 12/03/22 19:44 Freq: Status: Active Protocol: Document 02/22/23 09:36 LRN (Rec: 02/22/23 10:23 LRN [id number]) Hip Goniometric Range of Motion Hip Right Passive Testing Position Supine Straight Leg Raise 65 Internal Rotation 30 External Rotation 55 Left Passive Testing Position Supine Straight Leg Raise 63 Internal Rotation 35 External Rotation 60 PT-OP-L Special Tests Start: 12/03/22 19:44 Freq: Status: Active Protocol: Document 12/31/22 08:52 LRN (Rec: 12/31/22 17:56 LRN [id number]) Special Tests Lumbar Spine Special Tests Braulio Test Results - bilaterally PT-OP-M Strength Start: 12/03/22 19:44 Freq: Status: Active Protocol: Document 12/24/22 11:21 LRN (Rec: 12/24/22 12:12 LRN [id number]) Hip Strength Hip Manual Muscle Testing Right Flexion (L2) 5 Normal Extension (S1) 3- Fair- Abduction 5 Normal Adduction 5 Normal External Rotation 5 Normal Internal Rotation 5 Normal Left Flexion (L2) 5 Normal Extension (S1) 5 Normal Abduction 5 Normal Adduction 5 Normal External Rotation 5 Normal Internal Rotation 5 Normal PT-OP-Q Treatments Start: 12/03/22 19:44 Freq: Status: Active Protocol: Document 02/22/23 09:36 LRN (Rec: 02/22/23 10:23 LRN [id number]) Therapeutic Exercises Supine Exercises Fig 4 stretch Supine Exercise Name Fig 4 stretch-discharge from HEP Side bilateral Reps/Minutes 60SH w/ breath allow increase ER stretch Comments ankle over lower leg just below knee- painfree gd stretch L little dec ROM Piriformis stretch Supine Exercise Name Piriformis Stretch Side right Reps/Minutes 60 secs x 2 right, x 1 left. Comments Pt needed review; therefore extra time needed. Hamstring/LE neural stretch Supine Exercise Name Hamstring/LE neural stretch- HEP reviewed Side bilateral Reps/Minutes 10SH f/b ankle stretch x3 sets Comments Extra time taken to determine max ran stretch & for education. Sitting Exercises Sciatic n glide Sitting Exercise Name Kick the head Side bilateral Reps/Minutes 10x 3 each Hip IR Sitting Exercise Name Ankle over knee, leaning forward or knee to opp shoulder stretch Side bilateral Equipment Used Pt refers rotating trunk toward bent knee as well for added QL stretch Reps/Minutes 60 SH x 5 R, 60 SH x 2 Left Comments improved decrease hip tension support reviewed do on regular basis- gd str Hip ER Sitting Exercise Name Ankle over knee stretch Side right Reps/Minutes 60SH Self-Care/Home Management Treatment Education Patient Education Home Exercise Program,Posture Other Education Educated, Issued & discussed proper posturing in sitting and standing. Activities Self-Care/Home Management Activities Issued & reviewed HEP: Sciatic n. glide slider (kick the head off), and Hip IR stretch sitting w/instructions in R hip ER stretch sitting. PT-OP-T Assessment and Plan Start: 12/03/22 19:44 Freq: Status: Active Protocol: Document 02/22/23 09:36 LRN (Rec: 02/22/23 10:23 N [id number]) Physical Therapy Assessment Rehab Potential Rehabilitation Potential Good Evaluation Complexity Number of Personal Factors/Comorbidities 1-2 Number of Body Systems Impaired 4 or More Clinical Presentation at Evaluation Evolving Impairments Impairments Activity Tolerance,Balance, Functional Activities, Functional Mobility,Gait,Pain, Posture,ROM,Sensation Other Impairments Stiffness Goals Three Impairment Decreased function due to pain . Impairment 12/10/22: GARTH 9/50 (1-19% impaired, score 1-19) 02/22/23: GARTH 8/50 (1-19% impaired, score 1-19) Pipe Stem Sawyer Goal (LTG) Pt will be able to bend over to give dogs a bath, with positional modifications as needed to perform the activity with a tolerable pain level ( 15 minutes or greater). 02/22/23: Pt has not yet tried giving her dog a bath. GARTH improved from 18% to 16 % impaired. LTG Duration 03/12/23 progresssed 02/22/23 Two Impairment Decreased Mobility. Impairment Hip mobility (in deg's): IR is 25 R, 15 L; ER is 75 R, 60 L, SLR is 80 R, 70 L. Trunk mobility (in deg's): Flex 52 (45 hip flex), Ext 11 (11 hip ext), Rot is 10 R, 20 L; SB is 0 R, 5 L. Short Term Goal (STG) Improve hip/trunk mobility with the pt able to move with greater ease in the morning. 01/12/23: progressing: states able to get dressed without taking shower to warm up. Ed for performing supine stretching and TA SLR before get up in am for hip mobility. 02/22/23: Hip PROM sup (deg's) : ER 55 R, 60 L; IR 30 R, 35 L. Pt reporting able to move easier in the morning. STG Duration 01/22/23 (02/22/23: MET GOAL) Senior Care Goal (LTG) Improve hip/trunk mobility with the pt able to put on her socks without difficulty. 01/12/23: Progressing: ABle to don socks/shoes opp LE over knee. FOrgets can do this strategy to keep hip flexibility tends to put foot up on hamper to help due to SLS putting on socks off balance. Wants to complete SLS . 01/26/23: Pt is able to sit in Fig 4 to don socks/shoes and place theraband around foot for ankle ex's, but she requires reminders to use this position instead of placing foot on hamper and leaning down. 02/22/23: Puts foot up on hamper to put socks on without difficulty. She conts to forget to put self in hip ER stretch position for activity. LTG Duration 03/12/23 (02/22/23: MET GOAL) One Impairment Pt lacks appropriate self care HEP. Short Term Goal (STG) Pt will be educated in log roll transfers, proper sitting & standing posture, proper resting posture, and proper body mechanics for ADLs. 12/31/22: Pt educated in log roll transfer technique sit<> supine. 01/02/23: progressing Continue to review posturing standing, yard work mechanics. STG Duration 12/25/22 progressed 02/22/23 Senior Care Goal (LTG) Pt will be independent in an effective self care HEP for mobility ex's, and as needed, balance and strengthening exercises. 12/24/22: HEP: TA tightening, Stretches: Piriformis, Lateral hip, Iliopsoas. I/S pt to review Iliopoas stretch for ex next visit and SLS - hands hovering. 12/31/22: HEP: Piriformis sup & sitting, Fig 4 stretch, and LE hamstring/neural stretch. 01/12/23: TA SLR, TA abd/ add, resisted rows/ ext. Stretching need continue regular basis. 01/26/23: added to HEP: 3-way child's pose and Kitchen sink stretch. Pt encouraged to take breaks to stretch during weeding activities and try low stool. LTG Duration 03/12/23 progressed 02/22/23 Progress Towards Goals Progress Comments STG #2 MET. HEP and self care progressed. Assessment Summary Assessment Pt is a 67 yo female who initially presented with LBP/R hip pain that showed signs of L/S neural involvement with + slump test and relief of LBP with manual lumbar traction. She still obtains relief of her pain with lumbar traction and the pain on her R hip has decreased from 2-7/10 to 1/10, although the pt notes the pain is variable based on what she is doing. Her low back & L hip pain is the same. She demonstrates and improved PSLR bilaterally (65 R, 63 L) and she shows mild improvement in function per GARTH score of 18% to 16% disability. The pt still shows signs of possible disc involvement with + response to lumbar traction and would benefit from further physical therapy to work towards achieving the above stated goals. The pt has been reporting a very busy life and may not want to continue therapy after her next visit, but I would recommend continuation of therapy with at least one more follow up visits to progress her home program. Physical Therapy Plan Frequency and Duration Frequency of Treatment 2x/Week Plan of Care Start Date 12/10/22 Plan of Care End Date 03/12/23 Therapeutic Interventions Therapeutic Interventions Home Exercise Program,Joint Mobilizations,Manual Therapy, Neuromuscular Re-education, Patient/Caregiver Education, Self-Care/Home Management,Soft Tissue Mobilization, Therapeutic Activities, Therapeutic Exercises Modalities Cold Pack/Ice Massage,Electric Stimulation,Hot Packs, Ultrasound Next Visit Focus/Plan Next Note Type Progress Note Next Visit Plan Recheck HEP of core stab ex's. Assess pt adherence to back alignment weeding, and washing of dog. Assess for SIJ dysfunction, Reassess for R trunk rot/R SB - scoliosis ex program, try L/S Yudith ext vs Ramses flex ex's for LBP ( caution: scoliosis). Manual: STM back, hips as needed for pain, stretch to back/hips. Sacral mob. Modalities: MH/IFES to full back or mid>LB.
--- NOTE | 2023-03-04 18:30 | PT.OTN ---
Current Diagnoses Other intervertebral disc degeneration, lumbosacral region (03/04/23) Lumbago with sciatica, unspecified side (03/04/23) Unsteadiness on feet (03/04/23) Physical Therapy Treatment Note PT-OP-A Visit Information Start: 12/03/22 19:44 Freq: Status: Active Protocol: Document 03/04/23 09:45 LRN (Rec: 03/04/23 10:34 LRN [id number]) Out-Patient Physical Therapy Visit Information Visit Information Visit Type Treatment Note Visit Start Time 09:45 Visit Stop Time 10:24 Total Visit Minutes 39 Visit Number 11 Evaluation Information Evaluation Date 12/10/22 Precautions Precautions L thumb joint replacement, arthritis, chronic history of back pain. PT-OP-B Current Condition Start: 12/03/22 19:44 Freq: Status: Active Protocol: Document 12/10/22 09:53 LRN (Rec: 12/10/22 11:27 LRN [id number]) Current Condition History of Current Condition Onset Date 8-9 yrs ago Current Complaints Back pain/stiffness especially bending over for any length of time. History of Current Condition Back pain started due degenerative arthritis onset 8 -9 yrs ago. Had therapy for not being able to roll in bed and get dressed in the morning , but managed with medication started 1 yr ago. Now left with stiffness in the back and pain if bent over for any length of time ~5-10 minutes. Pt in physical therapy at MD recommendation. She reports problem with balalnce and has trouble getting her foot up to put socks on. When showering uses bench to put feet up to wash feet, otherwise wouldn't be able to bend over to perform that. If bent over too long, the back becomes unbearably painful, requiring repositioning to get the pain to stop (ex-stand up, twist). She states bending over to pick things up off the ground is uncomfortable. Prior Treatments and Tests Physical Therapy x 2, for stiffness 9 yrs and 5 yrs ago, not successful. Pt reports no longer having home exercises. Developmental History Developmental History 1 yr ago doctor put her on amitriptyline because she couldn't roll in bed and was then able to move better. Treatment Goals Patient/Caregiver Goals Pt goals: able to move in the morning, get stretches to improve mobility, and be able to bend over to give dogs a bath. Prior Functional Status Baseline Function- ADL's Independent Baseline Function- Mobility Independent Baseline Function- Work/School Retired from [employer] in 2020. 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 Current Functional Impairments (Reported) Functional Limitations- ADL's Have difficulty putting socks/ shoes on. Losses balance a little, can't stand independently to put pants on, needs to lean against wall. Functional Limitations- Mobility/Gait Bending over 5-10 minutes to give dogs a bath causes a lot of back pain. Functional Limitations- Other Not able to lift her 70# dog. Personal Factors Other Personal Factors That May Effect Lives alone, arthritis Therapy/Recovery PT-OP-C Subjective Start: 12/03/22 19:44 Freq: Status: Active Protocol: Document 03/04/23 09:45 LRN (Rec: 03/04/23 10:34 LRN [id number]) OP-PT Subjective Patient Comments Patient Comments Did not get a chance to wash dog because it is a really busy time, not a good time to do therapy. In mornings, really stiff. Her doctor increased the dosage of her medication and she hope it will help. Pain in low back ( across the back) rated 1/10. Biggest problem is the LB spasms. Patient Questionnaires Oswestry Low Back Index Oswestry Score 12/50 Oswestry Impairment 20 to 39% Impaired (Score 20- 39) PT-OP-G Mobility & Gait Start: 12/03/22 19:44 Freq: Status: Active Protocol: Document 12/10/22 09:53 LRN (Rec: 12/10/22 11:27 LRN [id number]) OP Gait Assessment Gait Gait Assistance Required: Independent Able to Maintain Weight Bearing Status Yes During Gait Assistive Devices Assistive Device None Gait Deviations General Gait Pattern Lateral Trunk Lean,Wide Based Gait Comments Gait Comments No pain with gait. Factors limiting gait: Stiffness of extremities, and reported decreased balance. Stair Climbing Evaluation Comments Stair Climbing Comments No pain with stair ambulation. PT-OP-H Neuro Start: 12/03/22 19:44 Freq: Status: Active Protocol: Document 12/10/22 09:53 LRN (Rec: 12/10/22 11:27 LRN [id number]) Sensation Evaluation Gross Sensation Sensation Description Numbness,Tingling Comments Summary Comments L middle toe numb for a few years. R middle toe is starting to go numb. Tingling and pain is intermittent, numbness constant. Deep Tendon Reflex & Clonus Assessment Deep Tendon Reflex Right Achilles Deep Tendon Reflex 1+ Diminished Left Achilles Deep Tendon Reflex 0 Absent Bilateral Patellar Deep Tendon Reflex 1+ Diminished PT-OP-J Posture/Palpation/Skin Start: 12/03/22 19:44 Freq: Status: Active Protocol: Document 12/10/22 09:53 LRN (Rec: 12/10/22 11:27 LRN [id number]) Posture Evaluation Position Standing Head/C-Spine Posture Side Bent Left,Forward Head L-Spine Posture Increased Lordosis Shoulder Posture (R) Elevated Arm Posture (L) Internally Rotated,(R) Internally Rotated Weight Distribution Balanced Comments Posture Comments Sway back, S-curve of spine: R upper apex on R ~T5, lower apex on L ~L2. Palpation Assessment Location Sacrum Palpation Location R rotated Low back Palpation Location Pain at spinous process L4, L5 Palpation Findings Tenderness PT-OP-K Range of Motion Start: 12/03/22 19:44 Freq: Status: Active Protocol: Document 02/22/23 09:36 LRN (Rec: 02/22/23 10:23 LRN [id number]) Hip Goniometric Range of Motion Hip Right Passive Testing Position Supine Straight Leg Raise 65 Internal Rotation 30 External Rotation 55 Left Passive Testing Position Supine Straight Leg Raise 63 Internal Rotation 35 External Rotation 60 PT-OP-L Special Tests Start: 12/03/22 19:44 Freq: Status: Active Protocol: Document 12/31/22 08:52 LRN (Rec: 12/31/22 17:56 LRN [id number]) Special Tests Lumbar Spine Special Tests Braulio Test Results - bilaterally PT-OP-M Strength Start: 12/03/22 19:44 Freq: Status: Active Protocol: Document 12/24/22 11:21 LRN (Rec: 12/24/22 12:12 LRN [id number]) Hip Strength Hip Manual Muscle Testing Right Flexion (L2) 5 Normal Extension (S1) 3- Fair- Abduction 5 Normal Adduction 5 Normal External Rotation 5 Normal Internal Rotation 5 Normal Left Flexion (L2) 5 Normal Extension (S1) 5 Normal Abduction 5 Normal Adduction 5 Normal External Rotation 5 Normal Internal Rotation 5 Normal PT-OP-Q Treatments Start: 12/03/22 19:44 Freq: Status: Active Protocol: Document 03/04/23 09:45 LRN (Rec: 03/04/23 10:34 LRN [id number]) Therapeutic Exercises Supine Exercises Fig 4 stretch Supine Exercise Name Fig 4 stretch-review Side bilateral Reps/Minutes 60SH w/ breath allow increase ER stretch Comments ankle over lower leg just below knee- painfree gd stretch L little dec ROM Piriformis stretch Supine Exercise Name Piriformis Stretch Side right Reps/Minutes 60 secs x 2 right, x 1 left. Comments Pt needed review; therefore extra time needed. Sitting Exercises Sciatic n glide Sitting Exercise Name Kick the head Side bilateral Reps/Minutes 10x 3 [address] ankle strengthening Sitting Exercise Name Ankle IV/EV/DF Side right Equipment Used Lev 2 TB Reps/Minutes 10x Comments IV LLE behind works best, better understanding today Standing Exercises resisted TA shoulder ext Standing Exercise Name HEP reviewed: rows and extension Resistance Tb #3>#5 (plum) Comments cued straight arms, scap set back/open chest con/ecc, PPT/ TA fac PT-OP-T Assessment and Plan Start: 12/03/22 19:44 Freq: Status: Active Protocol: Document 03/04/23 09:45 LRN (Rec: 03/04/23 10:34 LRN [id number]) Physical Therapy Assessment Goals Three Impairment Decreased function due to pain . Impairment 12/10/22: GARTH 9/50 (1-19% impaired, score 1-19) 02/22/23: GARTH 8/50 (1-19% impaired, score 1-19) Commercial Real Estate Broker Goal (LTG) Pt will be able to bend over to give dogs a bath, with positional modifications as needed to perform the activity with a tolerable pain level ( 15 minutes or greater). 02/22/23: Pt has not yet tried giving her dog a bath. GARTH improved from 18% to 16 % impaired. LTG Duration 03/12/23 03/04/23: Not assessed by patient. Two Impairment Decreased Mobility. Impairment Hip mobility (in deg's): IR is 25 R, 15 L; ER is 75 R, 60 L, SLR is 80 R, 70 L. Trunk mobility (in deg's): Flex 52 (45 hip flex), Ext 11 (11 hip ext), Rot is 10 R, 20 L; SB is 0 R, 5 L. Short Term Goal (STG) Improve hip/trunk mobility with the pt able to move with greater ease in the morning. 01/12/23: progressing: states able to get dressed without taking shower to warm up. Ed for performing supine stretching and TA SLR before get up in am for hip mobility. 02/22/23: Hip PROM sup (deg's) : ER 55 R, 60 L; IR 30 R, 35 L. Pt reporting able to move easier in the morning. STG Duration 01/22/23 (02/22/23: MET GOAL) Commercial Real Estate Broker Goal (LTG) Improve hip/trunk mobility with the pt able to put on her socks without difficulty. 01/12/23: Progressing: ABle to don socks/shoes opp LE over knee. FOrgets can do this strategy to keep hip flexibility tends to put foot up on hamper to help due to SLS putting on socks off balance. Wants to complete SLS . 01/26/23: Pt is able to sit in Fig 4 to don socks/shoes and place theraband around foot for ankle ex's, but she requires reminders to use this position instead of placing foot on hamper and leaning down. 02/22/23: Puts foot up on hamper to put socks on without difficulty. She conts to forget to put self in hip ER stretch position for activity. LTG Duration 03/12/23 (02/22/23: MET GOAL) One Impairment Pt lacks appropriate self care HEP. Short Term Goal (STG) Pt will be educated in log roll transfers, proper sitting & standing posture, proper resting posture, and proper body mechanics for ADLs. 12/31/22: Pt educated in log roll transfer technique sit<> supine. 01/02/23: progressing Continue to review posturing standing, yard work mechanics. 01/18/23: Educated in proper posture standing, resting and with ADLs. 02/22/23: Educated in proper sitting and standing posture STG Duration 12/25/22 (02/22/23: MET GOAL) Custodial Goal (LTG) Pt will be independent in an effective self care HEP for mobility ex's, and as needed, balance and strengthening exercises. 12/24/22: HEP: TA tightening, Stretches: Piriformis, Lateral hip, Iliopsoas. I/S pt to review Iliopoas stretch for ex next visit and SLS - hands hovering. 12/31/22: HEP: Piriformis sup & sitting, Fig 4 stretch, and LE hamstring/neural stretch. 01/12/23: TA SLR, TA abd/ add, resisted rows/ ext. Stretching need continue regular basis. 01/26/23: added to HEP: 3-way child's pose and Kitchen sink stretch. Pt encouraged to take breaks to stretch during weeding activities and try low stool. 02/08/23: HEP: Progressive core stab program in supine, 4 pt, kneeling and seated hamstring/LE neural glide. 02/22/23: HEP: Seated Piriformis stretch, Sciatic n glide. 03/04/23: HEP: core stab for meet shoulder ext. LTG Duration 03/12/23 (03/04/23: MET GOAL) Assessment Summary Assessment Pt is a 67 yo female who attends to therapy after 2 weeks for recheck on her progress. She was not able to check how well she is able to perform the function of washing her dog because she has been too busy. GARTH score indicates she is worse in function overall. Her LBP remains the same with a pain rating of 3/10. She indicates no L hip pain, but increased R hip pain rated 6/10. The pt has demonstrated positive LE neural involvement with a + slump test and relief of hip pain with manual lumbar traction. The pt has been issued a HEP of mobility and core stabilization ex's, but she may benefit from further imaging and orthopedic consult for more immediate relief of her back and hip pain. Physical Therapy Plan Discharge Physical Therapy Discharge Reasons Patient Request Discharge Comments Pt requested DC due to too much going on at home and she is not able to focus on her therapy program (see assessment above). Pt would benefit from ortho consult and physical therapy in the future if her back pain continues to be unresolved. Thank you for your referral.
== END 2023-03-09 10:06 | disposition home or self-care (01) ==
LOC: PHYS 09:30
PROVIDERS: Family Provider Family Medicine; PCP Family Medicine; Referring Provider Family Medicine; Visit Provider Family Medicine
DX: M51.37 Other intervertebral disc degeneration, lumbosacral region (principal); M54.40 Lumbago with sciatica, unspecified side; R26.81 Unsteadiness on feet
CPT/HCPCS: 97110; 97112; 97162; 97530; 97535

== ENCOUNTER → 2023-05-17 07:57 | Outpatient (CLI) | payer MEDICARE, OTHER, SELFPAY ==
--- NOTE | 2023-05-17 | DI.MG.S_ITS ---
BILATERAL DIGITAL SCREENING MAMMOGRAM 3D/2D WITH CAD: 05/17/2023 CLINICAL: Routine screening. Comparison is made to exams dated: 07/09/2021 mammogram, 05/06/2018 mammogram, and 12/23/2015 mammogram - [facility]. There are scattered areas of fibroglandular density in both breasts (category b / 25%-50% glandular tissue). Current study was also evaluated with a Computer Aided Detection (CAD) system. There are benign calcifications in the left breast. No significant masses, calcifications, or other findings are seen in either breast. There has been no significant interval change. IMPRESSION: BENIGN There is no mammographic evidence of malignancy. A 1 year screening mammogram is recommended. Based on the Tyrer Cuzick model (a risk assessment model) the patient's lifetime risk is 6.7% and her 10 year risk is 3.5%. According to the ACR, ACS, and NCCN guidelines, an annual breast MRI exam along with mammogram is recommended if the patient's lifetime risk is 20% or greater. This exam was interpreted at Station ID: [id number]. NOTE: For mammograms, a report in lay terms will be sent to the patient. Approximately 15% of breast malignancies will not be visualized mammographically. In the management of a palpable breast mass, a negative mammogram must not discourage biopsy of a clinically suspicious lesion. Electronically Signed By: Nicholas pinzon/sherrill:05/17/2023 10:36:21 letter sent: Normal Exam ACR BI-RADS Category 2: Benign Finding(s) 3342F
== END ==
PROVIDERS: Family Provider Family Medicine; PCP Family Medicine; Referring Provider Family Medicine; Visit Provider Family Medicine
DX: Z12.31 Encounter for screening mammogram for malignant neoplasm of breast (principal)
CPT/HCPCS: 77063; 77067

== ENCOUNTER → 2023-12-09 09:40 | Outpatient (CLI) | payer MEDICARE, OTHER, SELFPAY ==
--- NOTE | 2023-12-09 09:41 | DI.RAD.S_ITS ---
Bone Density Report Name: PORSHA LINDSAY Age: 68 Sex: Female Ethnicity: White Date of : 1955 Indication: postmenopausal; screening for osteoporosis; Referring Provider: ELLY WOODSON Study: Bone densitometry was performed. Exam Date: December 09, 2023 Accession number: [id number] Bone Density: Region BMD T-score Z-score Classification AP Spine(L1, L3, L4) 1.311 2.3 4.3 Normal Femoral Neck (Left) 0.893 0.4 2.1 Normal Total Hip (Left) 1.007 0.5 1.9 Normal Femoral Neck (Right) 0.896 0.4 2.1 Normal Total Hip (Right) 1.043 0.8 2.2 Normal Total Hip Mean 1.025 0.7 2.1 Normal World Health Organization criteria for BMD impression classify patients as: Normal (T-score at or above -1.0), Osteopenia (T-score between -1.0 and -2.5), or Osteoporosis (T-score at or below -2.5). 10-year Fracture Risk: FRAX not reported because: All T-scores for Spine Total, Hip Total, Femoral Neck at or above -1.0 Previous Exams: -- Region Exam Age BMD T-score BMD Change BMD Change Date g/cm2 vs Baseline vs Previous -- AP Spine (L1,L3-L4) 12/09/2023 68 1.311 2.3 -0.102 (-7.2%)# -0.033 (-2.5%)# 07/09/2021 65 1.344 2.6 -0.069 (-4.9%)* 0.038 (2.9%)* 08/17/2017 61 1.306 2.3 -0.106 (-7.5%)* -0.106 (-7.5%)* 03/03/2013 57 1.412 3.3 Total Hip(Left) 12/09/2023 68 1.007 0.5 -0.050 (-4.7%)# 0.002 (0.2%)# 07/09/2021 65 1.006 0.5 -0.051 (-4.9%)* -0.048 (-4.5%)* 08/17/2017 61 1.053 0.9 -0.004 (-0.3%) -0.004 (-0.3%) 03/03/2013 57 1.057 0.9 Total Hip(Right) 12/09/2023 68 1.043 0.8 -0.083 (-7.3%)# -0.025 (-2.3%)# 07/09/2021 65 1.068 1.0 -0.058 (-5.1%)* -0.051 (-4.5%)* 08/17/2017 61 1.119 1.5 -0.007 (-0.6%) -0.007 (-0.6%) 03/03/2013 57 1.126 1.5 -- *Denotes significance at 95% confidence level, LSC for AP Spine = 0.022 g/cm2, LSC for Total Hip = 0.027 g/cm2 Rate of change results reflect vertebral levels common to all scans # Denotes dissimilar scan types or analysis methods Impression: The patient has normal bone mass. No significant bone loss was observed. Discussion: LOW RISK OF FRACTURE; BONE DENSITY IS WELL ABOVE THE MINIMUM DESIRABLE LEVEL AND ABOVE AVERAGE FOR AGE AND SEX AT ALL SKELETAL SITES TESTED. This person's bone density is above expected limits for age and sex. This is rarely clinically significant, but should be pursued if there are significant musculoskeletal complaints. The patient should follow a healthful lifestyle (good nutrition with adequate calcium and vitamin D, and appropriate weight-bearing exercise). Follow-Up: Consider repeating this study in 5 years or sooner if there is some new clinical indication. Reported by: MARÍA ORTIZ M.D. on 12/09/2023 9:59:00 AM.
== END ==
LOC: RAD 09:40
PROVIDERS: Family Provider Family Medicine; PCP Family Medicine; Referring Provider Family Medicine; Visit Provider Family Medicine
DX: M85.89 Other specified disorders of bone density and structure, multiple sites (principal); Z00.00 Encounter for general adult medical examination without abnormal findings; Z13.29 Encounter for screening for other suspected endocrine disorder
CPT/HCPCS: 77080

== ENCOUNTER → 2025-03-22 09:14 | Outpatient (CLI) | payer MEDICARE, OTHER, SELFPAY ==
--- NOTE | 2025-03-22 09:15 | DI.CT.S_ITS ---
PROCEDURE: CT LUNG LOW DOSE SCREENING INDICATIONS: NICOTINE DEPENDENCE TECHNIQUE: Noncontrast 2.0-2.5 mm thick sections acquired from the pulmonary apices to the posterior costophrenic angles. 7 mm thick axial MIP, and 5 mm coronal and sagittal reformats were then acquired. For radiation dose reduction, the following was used: automated exposure control, adjustment of mA and/or kV according to patient size. COMPARISON: None. FINDINGS: Image quality: Diagnostic Lungs and pleura: Small pulmonary nodules are present, for example in the right upper lung measuring 4 mm. Scattered mild scarring and atelectasis. No airspace consolidation or pleural effusion. Scarring is seen in the apices. There is subpleural nodularity measuring up to 6-7 mm in the left posterior lung. (5/42) Mediastinum, heart, and esophagus: Normal heart size. No enlarged lymph nodes by size criteria. Coronary calcifications are present. Unremarkable esophagus on noncontrast CT Chest wall and thyroid: Unremarkable Upper abdomen: Splenic granulomas with calcifications. No gross abnormality on these noncontrast low-dose images. Possible nonobstructing left renal calculi at the upper pole partially seen Bones: There are degenerative osseous changes. No aggressive appearing abnormality is seen. IMPRESSION: LUNG-RADS 3; probably benign. Six-month low-dose chest CT screening is recommended. Clinically Significant Non-pulmonary Findings: Coronary calcifications. Dictated by: Nicholas Garibay M.D. on 03/24/2025 at 6:19 Approved by: Nicholas Garibay M.D. on 03/24/2025 at 6:23
== END ==
LOC: CT 09:15
PROVIDERS: Family Provider Family Medicine; PCP Family Medicine; Referring Provider Family Medicine; Visit Provider Family Medicine
DX: Z12.2 Encounter for screening for malignant neoplasm of respiratory organs (principal); F17.210 Nicotine dependence, cigarettes, uncomplicated; R91.8 Other nonspecific abnormal finding of lung field; I25.10 Atherosclerotic heart disease of native coronary artery without angina pectoris
CPT/HCPCS: 71271

== ENCOUNTER → 2025-06-25 08:24 | Outpatient (CLI) | payer MEDICARE, OTHER, SELFPAY ==
--- NOTE | 2025-06-25 08:26 | DI.RAD.S_ITS ---
PROCEDURE: FL UPPER GI SERIES INDICATIONS: pharyngeal dysphagia COMPARISON: [facility], CT, CT LUNG LOW DOSE SCREENING, 03/22/2025, 9:19. FINDINGS: In the pharynx on a single image, a possible posteriorly projecting diverticulum is seen in the hypopharynx On upright images, there is normal transit of ingested barium into the stomach. In recombinant position, a possible mid esophageal small diverticulum is seen. Moderate degree of esophageal dysmotility with numerous tertiary contractions and poor progression of the primary wave. No hiatal hernia was seen on today's images. However, elicited gastroesophageal is present, to the level of the thoracic inlet IMPRESSION: Elicited gastroesophageal reflux to level of the thoracic inlet. No hiatal hernia was seen on today's images. Moderate intrinsic esophageal dysmotility with intra esophageal reflux. Questionable small mid esophageal and posterior hypo pharyngeal diverticula. Consider endoscopy to further evaluate if clinically needed Dictated by: Nicholas Garibay M.D. on 06/25/2025 at 11:20 Approved by: Nicholas Garibay M.D. on 06/25/2025 at 11:26
== END ==
LOC: RAD 08:25
PROVIDERS: Family Provider Family Medicine; PCP Family Medicine; Referring Provider Family Medicine; Visit Provider Family Medicine
DX: K21.9 Gastro-esophageal reflux disease without esophagitis (principal); R13.13 Dysphagia, pharyngeal phase; K22.4 Dyskinesia of esophagus
CPT/HCPCS: 74240